=== PATIENT | female | born 1970 | race Caucasian/White ===

== ENCOUNTER 2022-06-06 10:44 | Outpatient (CLI) | payer MEDICAID, SELFPAY | END 2022-06-06 10:45 | disposition home or self-care (01) | LOC: NFLDREF 10:44 | PROVIDERS: PCP Family Medicine; Visit Provider Obstetrics & Gynecology | DX: R30.0 Dysuria (principal); R10.2 Pelvic and perineal pain; N89.8 Other specified noninflammatory disorders of vagina | CPT/HCPCS: 87086; 87491; 87591 ==

== ENCOUNTER 2022-07-03 08:16 | Outpatient (RCR) | payer MEDICAID, SELFPAY | END 2023-04-16 23:59 | disposition home or self-care (01) | PROVIDERS: PCP Family Medicine; Visit Provider Obstetrics & Gynecology | DX: M54.50 Low back pain, unspecified (principal); R10.9 Unspecified abdominal pain; Z51.89 Encounter for other specified aftercare | CPT/HCPCS: 97110; 97161 ==

== ENCOUNTER 2022-07-28 10:40 | Outpatient (CLI) | payer MEDICAID, SELFPAY ==
[2022-07-30 03:14] LABS: Follicle Stimulating Hormone 10.2 IU/L
== END 2022-07-28 10:41 | disposition home or self-care (01) ==
PROVIDERS: PCP Family Medicine; Visit Provider Obstetrics & Gynecology
DX: R10.2 Pelvic and perineal pain (principal); B37.31 Acute candidiasis of vulva and vagina; N93.9 Abnormal uterine and vaginal bleeding, unspecified
CPT/HCPCS: 83001; 87070

== ENCOUNTER 2023-09-25 10:40 | Outpatient (CLI) | payer MEDICARE, SELFPAY ==
--- NOTE | 2023-09-25 11:00 | CRLHL7_ITS ---
For Patients: As a result of the Cures Act, medical imaging exams and procedure reports are released immediately into your electronic medical record. You may view this report before your referring provider. If you have questions, please contact your health care provider. Indication: Palpable lump Technique: Grayscale and color Doppler ultrasound of the left side of the neck performed. Comparison: None Findings: Mildly prominent left cervical lymph nodes are present measuring 10 x 10 x 8 millimeters, 16 x 7 x 12 millimeters and 11 x 10 x 19 millimeters. Normal internal vascularity is present. No fluid collection or abscess. Impression: Mildly prominent left submandibular lymph nodes. Dictated by Steven Muñoz MD @ 09/25/2023 12:19:09 PM (Electronically Signed)
== END 2023-09-25 10:41 | disposition home or self-care (01) ==
LOC: US 10:41
PROVIDERS: PCP Family Medicine; Visit Provider Otolaryngology
DX: R22.1 Localized swelling, mass and lump, neck (principal)
CPT/HCPCS: 76536

== ENCOUNTER 2023-10-23 09:47 | Emergency (ER) | payer MEDICARE, SELFPAY ==
[2023-10-23 09:51] VITALS: BP 137/88; PULSE 87; RESP 20; TEMP 36.8; O2SAT 93; BMI 45.2
--- NOTE | 2023-10-23 10:00 | ED_ITS ---
HPI - Extremity Injury (Lower) General Time Seen by Provider: 10:00 Date Seen: 10/23/23 Chief Complaint: Extremity Pain/Injury, Lower Stated Complaint: fall Time Seen by Provider: 10/23/23 10:00 Source: patient and RN notes reviewed Mode of arrival: wheelchair Limitations: no limitations History of Present Illness HPI Narrative: Patient is a 53-year-old female presenting to the ED after an injury to her right ankle. She was getting out of the car, caught her ankle on the lip and injured it. She did fall out of the car, states nothing else is injured. Did not hit her head, no loss of consciousness. No neck or back pain. She has a little bit of dirt or staining of her sweatshirt along the right arm from falling. She states this does not hurt though. Her right ankle is hurting quite a bit, has not taken anything for pain. She denies any numbness or tingling in the toes or foot of this extremity. MD complaint: ankle injury Related Data Home Medications Medication Instructions Recorded Confirmed atorvastatin 10 mg tablet 10 mg PO QPM 06/06/22 09/08/23 betamethasone dipropionate 0.05 % 1 topical BID 06/06/22 09/08/23 lotion buspirone 15 mg tablet 15 mg PO BID 06/06/22 09/08/23 desvenlafaxine succinate 50 mg 100 mg PO DAILY 06/06/22 09/08/23 tablet,extended release 24 hr esomeprazole magnesium 20 mg 20 mg PO DAILY 06/06/22 09/08/23 capsule,delayed release famotidine 20 mg tablet (Pepcid) 20 mg PO BID 06/06/22 09/08/23 ketoconazole 1 % shampoo 1 topical 06/06/22 09/08/23 lorazepam 0.5 mg tablet 0.5 mg PO BID PRN 06/06/22 09/08/23 melatonin 5 mg capsule 5 mg PO DAILY PRN 06/06/22 09/08/23 modafinil 100 mg tablet 100 mg PO QAM 06/06/22 09/08/23 liraglutide 0.6 mg/0.1 mL (18 mg/3 1.8 mg subcut QDAY 08/05/22 09/08/23 mL) subcutaneous pen injector (Victoza 3-Jose E) propranolol 120 mg capsule,24 120 mg PO QDAY 10/24/22 09/08/23 hr,extended release lisinopril 5 mg tablet 5 mg PO DAILY 12/04/22 09/08/23 insulin glargine 100 unit/mL (3 16 unit subcut QPM 01/02/23 09/08/23 mL) subcutaneous pen (Lantus Solostar U-100 Insulin) nystatin 100,000 unit/gram topical 1 applic topical BID 01/02/23 09/08/23 cream Previous Rx's Medication Instructions Recorded clobetasol 0.05 % topical ointment 1 applic topical QHS #15 grams 08/12/22 fluconazole 150 mg tablet 150 mg PO Q3D 2 doses #2 tabs 01/02/23 (Diflucan) estradiol 10 mcg vaginal tablet 10 mcg vaginal QDAY #30 tabs 05/22/23 (Vagifem) oxycodone 5 mg tablet 5 mg PO Q6H PRN pain #10 tabs 10/23/23 Allergies Allergy/AdvReac Type Severity Reaction Status Date / Time No Known Allergies Allergy Unknown Verified 09/08/23 09:52 Review of Systems Narrative: As per HPI. 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) GERD (gastroesophageal reflux disease) ?K21.9 - Gastro-esophageal reflux disease without esophagitis (ICD-10) High blood cholesterol ?E78.00 - Pure hypercholesterolemia, unspecified (ICD-10) Type 2 diabetes mellitus ?E11.9 - Type 2 diabetes mellitus without complications (ICD-10) OCD (obsessive compulsive disorder) ?F42.9 - Obsessive-compulsive disorder, unspecified (ICD-10) Recurrent depression ?F33.9 - Major depressive disorder, recurrent, unspecified (ICD-10) Hypertension ?I10 - Essential (primary) hypertension (ICD-10) Generalized anxiety disorder ?F41.1 - Generalized anxiety disorder (ICD-10) Obstructive sleep apnea ?G47.33 - Obstructive sleep apnea (adult) (pediatric) (ICD-10) Vitamin D deficiency ?E55.9 - Vitamin D deficiency, unspecified (ICD-10) Hypothyroidism ?E03.9 - Hypothyroidism, unspecified (ICD-10) Surgical History Hx laparoscopic cholecystectomy ?Z90.49 - Acquired absence of other specified parts of digestive tract (ICD- 10) H/O lymph node excision ?Z98.890 - Other specified postprocedural states (ICD-10) H/O esophagogastroduodenoscopy ?Z98.890 - Other specified postprocedural states (ICD-10) History of delivery ?Z98.891 - History of uterine scar from previous surgery (ICD-10) Family History Other Anxiety disorder Coronary artery disease Stroke Social History Narrative: 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 She doesn't smoke, drink alcohol, [] Smoking Status: Never smoker Little interest or pleasure in doing things: more than half the days Feeling down, depressed, or hopeless: more than half the days Exam Const: Vital Signs, click to edit/add: Vital Signs - 24 hr 10/23/23 09:51 10/23/23 10:03 Temperature 98.2 F Pulse Rate [Pulse Oximeter] 87 Respiratory Rate 20 Blood Pressure [Ri ght Upper Arm] 137/88 Pulse Oximetry 93 91 Oxygen Delivery Me thod Room Air This 53-year-old female is alert, interactive, no apparent distress. Face atraumatic, speaking complete sentences, sclera clear, conjugate gaze. Lungs clear, no wheezing or crackles, able speak in complete sentences. CV regular rate and rhythm, no murmur, normal S1-S2, no S3-S4. Patient is obese. Her right lower extremity has ice pack over the ankle, this was removed, obvious swelling that is significant about the ankle, does seem to involve the ankle mortise. It in do feel a faint dorsalis pedis pulse, too much swelling to feel the posterior tibialis. Her foot and toes are warm and dry, she states she has normal sensation in them. Did not mobilize her about the ankle due to the significant ecchymosis and swelling. She is tender over medial and lateral malleoli. I do wonder just looking at this ankle about significant fracture with disruption of the mortise. Documenting provider has reviewed patient's vital signs: yes Course Course ED Course: Will establish an IV, have her on pulse oximetry but give her some initial pain management with morphine, prophylax with Zofran for nausea. She will obtain an x-ray of this right ankle, need to rule out underlying fracture which I highly suspect there is. Reevaluation(s) Time of Reevaluation #1: 11:07 Reevaluation #1: Reviewed ankle fracture with patient. Placed a short-leg posterior splint and a U-tong splint for medial/lateral stability. Ortho Glass was used for splinting. Patient tolerated this well. The morphine had really helped her pain management. Reviewed with her she needs to be weight-bearing, will attempt cru tches with her with the assistance of nursing staff. Consultations Consultation #1: Have reviewed with Dinorah WATTS from Orthopedics. Reviewed films, she does agree that she sees the tibial involvement on the posterior aspect of the films. We will splint as discussed. They will get her scheduled for follow-up in clinic next week, will advise her to get a preop scheduled. Time: 10:36 Vital Signs Vital signs: Initial Vital Signs Temperature 98.2 F 10/23/23 09:51 Temperature Source Temporal Artery Scan 10/23/23 09:51 Pulse Rate 87 10/23/23 09:51 Respiratory Rate 20 10/23/23 09:51 Blood Pressure 137/88 10/23/23 09:51 Blood Pressure Mean 104 10/23/23 09:51 Blood Pressure Position Supine 10/23/23 09:51 Pulse Oximetry 93 10/23/23 09:51 Oxygen Delivery Method Room Air 10/23/23 09:51 Vital Signs Temperature 98.2 F 10/23/23 09:51 Pulse Rate 87 10/23/23 09:51 Respiratory Rate 20 10/23/23 09:51 Blood Pressure 137/88 10/23/23 09:51 Pulse Oximetry 93 10/23/23 09:51 Oxygen Delivery Method Room Air 01/26/24 09:51 Temperature 98.2 F 10/23/23 09:51 Pulse Rate 87 10/23/23 09:51 Respiratory Rate 20 10/23/23 09:51 Blood Pressure 137/88 10/23/23 09:51 Pulse Oximetry 91 10/23/23 10:03 Oxygen Delivery Method Room Air 10/23/23 09:51 Medications Administered Medications: Discontinued Medications Generic Name Dose Route Start Last Admin Trade Name Freq PRN Reason Stop Dose Admin Morphine Sulfate 4 mg 10/23/23 10:03 10/23/23 10:15 Morphine 4 Mg/Ml Inj IVP 10/23/23 10:04 4 mg ONCE ONE Administration Ondansetron HCl 4 mg 10/23/23 10:03 10/23/23 10:15 Ondansetron 2 Mg/Ml Inj IVP 10/23/23 10:04 4 mg ONCE ONE Administration MDM - Extremity Injury (Lower) Differential Diagnosis Differential diagnosis: Likely ankle sprain and strain and ankle fracture Imaging Data XR right ankle: Attestation: I have reviewed the pertinent imaging results. My impression: Fibula fracture, do see posterior element of the tibia fractured on my preliminary review, await Radiology over-read. Radiologist's impression: Patient: SAMIA GUERRERO Facility:?[facility] Patient ID:?[id number] Site Patient ID:?[id number]. Site :?[id number] Study:?XRay Extremity Right ANKLE-10/23/2023 10:29:15 AM Ordering Physician:Nilton Morris Final Report: Indication: Trauma. Technique: Three views right ankle Comparison: None. Findings: Bones and joints: Mildly displaced transversely oriented fracture of the distal fibula. Tiny ossific density adjacent to the tip of the medial malleolus compatible with an avulsive injury with moderate widening of the medial clear space. Additional posterior malleolar fracture. Soft tissues: Soft tissue swelling, particularly anteriorly and laterally. Impression: Trimalleolar fractures with widening of the ankle mortise Dictated by Darci Arboleda MD @ 10/23/2023 10:41:12 AM (Electronic Signature) Discharge Plan Discharge Clinical Impression: Ankle fracture, right Qualifiers: Encounter type: initial encounter Fracture type: closed Qualified Code(s): S82.891A - Other fracture of right lower leg, initial encounter for closed fract ure Patient Disposition: Home, Self-Care Condition: Stable Instructions: Ankle Fracture (ED) Additional Instructions: Need to keep splint on and keep this clean and dry. Elevate and ice her leg as much as you are able to until you follow-up with Orthopedics, this will help decrease the swelling. Tylenol 1000 mg 3 times a day baseline for pain. Can supplement with ibuprofen for pain control per bottle directions as needed. Have written for a few tablets of oxycodone for more severe pain, this can be constipating. If you are using the oxycodone, start MiraLax 17 g daily and use senna per package directions as needed for daily non constipated stool. Need to contact your clinic to get scheduled for a preop. The orthopedic clinic will contact you to get you scheduled for follow-up. If you have not heard from them by Thursday, can call [phone] to get scheduled. You need to be nonweightbearing on this leg, use crutches to achieve this goal. Activity Level: No Weight Bearing Prescriptions: New oxycodone 5 mg tablet 5 mg PO Q6H PRN (Reason: pain) Qty: 10 0RF No Action desvenlafaxine succinate 50 mg tablet extended release 24 hr 100 mg PO DAILY melatonin 5 mg capsule 5 mg PO DAILY PRN esomeprazole magnesium 20 mg capsule,delayed release(DR/EC) 20 mg PO DAILY ketoconazole 1 % shampoo 1 topical lorazepam 0.5 mg tablet 0.5 mg PO BID PRN buspirone 15 mg tablet 15 mg PO BID betamethasone dipropionate 0.05 % lotion 1 topical BID famotidine [Pepcid] 20 mg tablet 20 mg PO BID atorvastatin 10 mg tablet 10 mg PO QPM modafinil 100 mg tablet 100 mg PO QAM Victoza 3-Jose E 0.6 mg/0.1 mL (18 mg/3 mL) pen injector 1.8 mg subcut QDAY clobetasol 0.05 % ointment 1 applic topical QHS Qty: 15 3RF Rx Instructions: Use nightly as needed for 4 weeks, then twice weekly. propranolol 120 mg capsule,extended release 24 hr 120 mg PO QDAY lisinopril 5 mg tablet 5 mg PO DAILY insulin glargine [Lantus Solostar U-100 Insulin] 100 unit/mL (3 mL) insulin pen 16 unit subcut QPM nystatin 100,000 unit/gram cream 1 applic topical BID fluconazole [Diflucan] 150 mg tablet 150 mg PO Q3D Qty: 2 0RF estradiol [Vagifem] 10 mcg tablet 10 mcg vaginal QDAY Qty: 30 3RF Rx Instructions: Insert 1 tablet vaginally for the first 2 weeks followed by twice weekly Follow Up/Referrals: Milagro Noriega DO [Primary Care Provider] - Stand Alone Forms: [facility] Info Instructions
[2023-10-23 10:03] VITALS: O2SAT 91
--- NOTE | 2023-10-23 10:03 | CRLHL7_ITS ---
For Patients: As a result of the Century Cures Act, medical imaging exams and procedure reports are released immediately into your electronic medical record. You may view this report before your referring provider. If you have questions, please contact your health care provider. Indication: Trauma. Technique: Three views right ankle Comparison: None. Findings: Bones and joints: Mildly displaced transversely oriented fracture of the distal fibula. Tiny ossific density adjacent to the tip of the medial malleolus compatible with an avulsive injury with moderate widening of the medial clear space. Additional posterior malleolar fracture. Soft tissues: Soft tissue swelling, particularly anteriorly and laterally. Impression: Trimalleolar fractures with widening of the ankle mortise Dictated by Darci Arboleda MD @ 10/23/2023 10:41:12 AM (Electronically Signed)
[2023-10-23] MEDS: ONDANSETRON 2 MG/ML inj 4 MG IVP (10:15)
[2023-10-23] MEDS: MORPHINE 4 MG/ML INJ IVP (10:15)
--- OUTSIDE RECORDS SUMMARY | 2023-10-23 10:49 | XMS_ITS | Clinical Summary ---
Author Name Unknown Organization [facility] Address [place], [place] [address] Care Team Providers Care Assistant Restaurant General Manager Name Role Phone HariMilagro Primary Care Provider [phone] Silvia Guadalupe MD Unavail able Allergies Active Allergy Reactions Criticality Noted Date Comments Lisinopril Throat Swelling/Closing High 02/24/2023 ?cause mild throat swelling Metformin Diarrhea 01/28/2022 Medications Medication Sig Dispensed Refills Start Date End Date Status melatonin 5 mg tab Take 1 tablet by mouth at bedtime. 0 09/13/20 19 Active blood-glucose meterIndications: Type II diabetes mellitus with complication (HC) Check three times daily. 1 Device 0 01/02/20 21 Active fluticasone (50 mcg per actuation) nasal solution (FLONASE)Indicati ons:Dysfunction of left eustachian tube Inhale 2 Sprays to both nostrils once daily. 16 g 3 10/21/19 22 Active nystatin (MYCOSTATIN) creamIndications: Yeast vaginitis Apply topically to affected area(s) 2 times daily. Until resolved. 90 g 0 04/28/20 22 Active Insulin Isabella, Disposable, (BD Adrienne 2nd Gen Pen Needle) 32 gauge x 5/32Indications: Uncontrolled type 2 diabetes mellitus with hyperglycemia (HC) As directed. Remove the 2 covers on the insulin pen needle before administering insulin and victoza dose. 200 Each 3 12/10/19 23 Active lancetsIndication s:Type II diabetes mellitus with complication (HC) Check three times daily 200 Each 3 12/19/19 23 Active Clobetasol Propionate 0.05 % shampooIndication s:Psoriasis of scalp APPLY A THIN LAYER ONTO DRY, TO THE AFFECTED AREA(S) SCALP DAILY. LEAVE ON FOR 15 MINUTES BEFORE LATHERING AND RINSING 118 mL 1 01/15/20 23 Active betamethasone dipropionate 0.05% (DIPROSONE 0.05% CREAM) 0.05 % creamIndications: Psoriasis (a type of skin inflammation) Use 1-2 times daily on psoriasis until improved, then use as needed 60 g 1 02/10/20 23 Active albuterol HFA (PRO-AIR; VENTOLIN; PROVENTIL) 90 mcg/actuation inhalerIndication s:Wheezing INHALE 1 TO 2 PUFFS BY MOUTH EVERY 4 HOURS NEEDED FOR SHORTNESS OF BREATH OR WHEEZING 6.7 g 0 03/26/20 23 Active famotidine (PEPCID) 20 mg tabletIndications :Gastroesophageal reflux disease, unspecified whether esophagitis present TAKE 1 TABLET(20 MG) BY MOUTH TWICE DAILY 180 Tablet 2 05/03/20 23 Active cetirizine (ZYRTEC) 10 mg tabletIndications :Cough, unspecified type Take 1 Tablet (10 mg) by mouth once daily. 90 Tablet 3 06/03/20 23 Active propranolol ER (INDERAL LA) 120 mg Cs24 Sustained-Release capsuleIndication s:HTN (hypertension) TAKE 1 CAPSULE(120 MG) BY MOUTH EVERY DAY 60 Capsule 0 08/01/20 23 Active esomeprazole (NEXIUM) 40 mg capsuleIndication s:Gastroesophagea l reflux disease, unspecified whether esophagitis present TAKE 1 CAPSULE(40 MG) BY MOUTH EVERY DAY BEFORE A MEAL 90 Capsule 2 08/01/20 23 Active atorvastatin (LIPITOR) 10 mg tabletIndications :Type II diabetes mellitus with complication (HC) TAKE 1 TABLET(10 MG) BY MOUTH AT BEDTIME 60 Tablet 0 08/01/20 23 Active Lantus Solostar U-100 Insulin 100 unit/mL (3 mL) penIndications:Un controlled type 2 diabetes mellitus with hyperglycemia (HC) Inject 50 units subcutaneous before bedtime. 45 mL 3 09/07/20 23 Active blood sugar diagnostic (Jajah Verio test strips) stripIndications: Type II diabetes mellitus with complication (HC) USE TO TEST THREE TIMES DAILY 300 Each 3 09/14/20 23 Active sertraline (ZOLOFT) 100 mg tabletIndications :Moderate recurrent major depression (HC),Obsessive-co mpulsive disorder, unspecified type,Generalized anxiety disorder Take 1 Tablet (100 mg) by mouth at bedtime. 90 Tablet 0 09/29/19 24 Active sertraline (Zoloft) 50 mg tabletIndications :Moderate recurrent major depression (HC) Take 1 Tablet (50 mg) by mouth every morning. 90 Tablet 0 09/29/19 24 Active modafiniL (PROVIGIL) 200 mg tabletIndications :Moderate recurrent major depression (HC),Hypersomnia Take 1 Tablet (200 mg) by mouth every morning. 90 Tablet 0 09/29/19 24 Active busPIRone (BUSPAR) 30 mg tabletIndications :Moderate recurrent major depression (HC),Obsessive-co mpulsive disorder, unspecified type,Generalized anxiety disorder Take 1 Tablet (30 mg) by mouth once daily. (In the morning) 90 Tablet 0 09/29/19 24 Active busPIRone (BUSPAR) 15 mg tabletIndications :Moderate recurrent major depression (HC),Obsessive-co mpulsive disorder, unspecified type,Generalized anxiety disorder Take 1 Tablet (15 mg) by mouth once daily. (At bedtime) 90 Tablet 0 09/29/19 24 Active LORazepam (ATIVAN) 0.5 mg tabIndications:Mo derate recurrent major depression (HC),Generalized anxiety disorder,Panic attacks Take 1 Tablet (0.5 mg) by mouth once daily if needed (breakthrough anxiety). 30 Tablet 2 09/29/19 24 Active liraglutide (Victoza 2-Jose E) 0.6 mg/0.1 mL (18 mg/3 mL) subcutaneous penIndications:Un controlled type 2 diabetes mellitus with hyperglycemia (HC) ADMINISTER 1.8 MG UNDER THE SKIN EVERY DAY 9 mL 0 10/10/19 24 Active liraglutide (Victoza 2-Jose E) 0.6 mg/0.1 mL (18 mg/3 mL) subcutaneous penIndications:Un controlled type 2 diabetes mellitus with hyperglycemia (HC) Inject 0.3 mL (1.8 mg) subcutaneous once daily. 12 mL 3 04/02/20 23 024 Discontinued modafiniL (PROVIGIL) 200 mg tabletIndications :Hypersomnia Take 1 Tablet (200 mg) by mouth every morning. 90 Tablet 0 07/13/20 23 024 Discontinued(Re order (E-cancel not sent)) LORazepam (ATIVAN) 0.5 mg tabIndications:Mo derate recurrent major depression (HC),Generalized anxiety disorder,Panic attacks Take 1 Tablet (0.5 mg) by mouth once daily if needed (breakthrough anxiety). 30 Tablet 2 07/13/20 23 024 Discontinued(Re order (E-cancel not sent)) desvenlafaxine succinate (PRISTIQ) 25 mg extended release tabletIndications :Moderate recurrent major depression (HC),Generalized anxiety disorder Take 1 Tablet (25 mg) by mouth once daily. 90 Tablet 0 07/13/20 23 024 Discontinued(*M ed complete/Regime n complete/Level of care change) busPIRone (BUSPAR) 15 mg tabletIndications :Moderate recurrent major depression (HC),Generalized anxiety disorder,Obsessiv e-compulsive disorder, unspecified type Take 1 Tablet (15 mg) by mouth two times daily. 180 Tablet 0 07/13/20 23 024 Discontinued(Re order (E-cancel not sent)) sertraline (ZOLOFT) 100 mg tabletIndications :Moderate recurrent major depression (HC),Obsessive-co mpulsive disorder, unspecified type,Generalized anxiety disorder Take 1 Tablet (100 mg) by mouth at bedtime. 90 Tablet 0 08/10/20 23 024 Discontinued(Re order (E-cancel not sent)) continuous glucose monitor SENSOR KIT (FREESYLE NEEL)Indications :Type 2 diabetes mellitus with microalbuminuria, with long-term current use of insulin (HC) To be used to read blood sugars per signal and communications maintainer's directions. 1 Each 0 09/07/20 23 024 Discontinued(*P atient states no longer taking) Active Problems Problem Noted Date Diagnosed Date Headache, chronic daily 04/16/2023 Obsessive-compulsive disorder 04/16/2023 Type 2 diabetes mellitus wit h microalbuminuria, with long-term current use of insulin 02/25/2023 Hypersomnia 05/13/2021 Moderate recurrent major depression 02/26/2021 Social anxiety disorder 02/26/2021 Panic attacks 02/26/2021 HTN (hypertension) 09/13/2019 Controlled substance agreement signed 11/23/2017 Overview: Signed: 02/01/15-Dinorah Baxter APRN, BC, [employer] / Pap smear for cervical cancer screening 02/27/20 Overview: 02/2017 NIL/HPV+, HPV 16/18 Negative 06/2018 NIL/HPV Negative 09/2021 NIL/HPV Negative PLAN: Pap/HPV due 09/2026 Generalized anxiety disorder 01/25/2013 Encounter for long-term (current) use of other m edications 06/07/2012 TASHA 05/09/2012 AHI-11 05/15/2012 Overview: Has cpap but does not use Encounter for long-term (current) use of other m edications 03/08/2012 Vitamin D deficiency 10/24/2010 Unspecified hearing loss 10/24/2010 Unspecified hypothyroidism 06/05/2009 Morbid obesity 01/20/2008 Headache(784.0) 12/07/2006 Overview: Follows with Dr. Estrada Resolved Problems Problem Noted Date Diagnosed Date Resolved Date Obsessive-compulsive disorder 08/05/2021 08/05/2021 Obsessive-compulsive disorder 08/05/2021 04/16/2023 Obsessive-compulsive disorder 05/13/2021 08/05/2021 Obsessive-compulsive disorder 02/26/2021 05/13/2021 Depression, major, recurrent, moderate 06/17/2018 02/26/2021 Cervical high risk HPV (shalom n papillomavirus) test positive 02/26/2017 08/04/2018 Overview: 02/2017 NIL/HPV+, HPV 16/18 negative. 06/2018 NIL/HPV negative Partner relational problem 09/03/2015 0 04/16/2023 Recurrent major depression i n complete remission 03/22/2015 06/17/2018 Overview: Under the care of Marybeth Baxter APRN-AARON, [employer] for mental health care. [facility] Has seen Austin Baxter MD and Lashon Patel MD in the past for psychiatry. Previous Medication Trials: Paxil since 2006- recently changed to fluoxetine in 2014 due to sexual side effects from the paxil. 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 02/26/2021 MAJOR DEPRESSION RECURRENT 01/18/2007 0 03/22/2015 Encounters Date Type Department Care Team Description 10/20/2023 9:10 AM EMERGENCY DEPARTMENT CLINICIAN Office Visit [facility] [address] [place] [address] Milagro Noriega DO Diabetes 10/20/2023 Orders Only [facility] Scanner 1 scan: (1-Ord) INCOMING RECORDS-, [facility], 10/20/2023 10/20/2023 Travel 10/09/2023 Refill [facility] [address] [facility] [address] [place] [phone] Silvia Guadalupe MD Refill Request (Buspirone-denied, orders on file) 10/08/2023 Refill [facility] [address] [place] [address] Milagro Noriega DO Refill Request (Victoza 2-jose e) 09/29/2023 1:45 PM EMERGENCY DEPARTMENT CLINICIAN Telemedicine [facility] [address] [place] [address] Silvia Guadalupe MD Telehealth ([place]); Medication Management 09/29/2023 Travel 09/25/2023 Orders Only [facility] Scanner 1 scan: (1-Ord) [facility], SOFT TISSUE HEAD NECK, 09/25/2023 09/23/2023 9:00 AM EMERGENCY DEPARTMENT CLINICIAN Ancillary Procedure [facility] [address] [place] [address] 09/23/2023 Travel 09/22/2023 Travel 09/14/2023 Refill [facility] [address] [place] [address] Milagro Noriega DO Refill Request (Onetouch Verio Test Strips) 09/07/2023 8:45 AM EMERGENCY DEPARTMENT CLINICIAN Office Visit [facility] [address] [place] [address] Milagro Noriega DO Diabetes; Immunization/Injec tion 09/07/2023 Travel 08/10/2023 1:00 PM EMERGENCY DEPARTMENT CLINICIAN Telemedicine [facility] [address] [place] [address] Silvia Guadalupe MD Telehealth ([place]) 08/10/2023 Travel 08/01/2023 Refill [facility] [address] [place] [address] Milagro Noriega DO Refill Request (Propranolol Er, Esomeprazole, Atorvastatin) from Last 3 Months Immunizations Name Administration Dates Next Due AMB Influenza, IIV3 (Age >=3 years)(Flu Clinic Only) 08/15/2008 COVID-19 Vaccine Spikevax (M oderna 50mcg/0.5mL) 12YO+ [id number] Formula PF 09/07/2023 COVID-19 vaccine (Pfizer-Bio NTech 30mcg/0.3mL) 12YO+ BIVALENT PF, MDV 08/04/2022 COVID-19 vaccine (Pfizer-Bio NTech 30mcg/0.3mL) 12YO+ CHANG-SUCROSE PF, MDV 04/28/2022 COVID-19 vaccine (Pfizer-Bio NTech 30mcg/0.3mL) PF MDV 10/21/2021,01/31/2021,01/08/2021 Hepatitis B (Adult) 11/10/2022,04/28/2022,1992 Hepatitis B (Peds) 01/30/1994 Influenza, IIV3 (Age >=3 years) 09/27/20 13,06/07/2012,07/08/2011,2009,09/07/2009,08/15/2008,07/12/2007,1 Influenza, IIV4 06/15/2023, 2,07/01/2021,2019,06/30/2019,07/08/2018,09/22/2017,1 10/05/2015,08/08/2015,07/12/2014 MMR 02/06/1989 Pneumococcal Conj 20-valent (Prevnar 20) 08/04/2022 Pneumococcal Poly,23-Valent (Pneumovax) 07/01/2021 Td (Age >=7 Years) 02/21/2021,09/28/1998 Tdap 10/23/2010 Family History Medical History Relation Name Comments Arthritis Father 1990 Heart Disease Father Heart attack Father Anxiety disorder Mother Other Other GRANDPARENTS HX POSITIVE FOR STROKE,CANCER,DEPRESSION No Known Problems Sister 1 No Known Problems Sister 2 No Known Problems Sister 3 Cancer-breast No Family History Cancer-ovarian No Family History Relation Name Status Comments Father (Age 57) started wi th heart Mother Alive Other Sister 1 Alive Sister 2 Alive Sister 3 Alive Social History Tobacco Use Types Packs/Day Years Used Date Smoking Tobacco: Never Passive Smoke Exposure: Past Smokeless Tobacco: Never Tobacco Cessation:Counseling Given: Not Answered Alcohol Use Standard Drinks/Week Comments Not Currently 0 (1 standard drink = 0.6 oz pur e alcohol) PHQ-2 Answer Date Recorded PHQ-2 TOTAL SCORE 6 09/29/2023 Social Connections Answer Date Recorded Frequency of Communication with Friends and Fami ly 0 06/03/2023 Alcohol Use Answer Date Recorded How often do you have a drink containing alcohol ? 2 10/21/2021 How many drinks containing a lcohol do you have on a typical day when you are drinking? 0 10/21/2021 How often do you have five or more drinks on one occasion? 0 10/21/2021 Financial Resource Strain Answer Date R ecorded Difficulty of Paying Living Expenses 3 06/03/2023 Difficulty of Paying Living Expenses Not on file 06/03/2023 Food Insecurity Answer Date Recorded Worried About Running Out of Food in the Last Ye ar 1 06/03/2023 Transportation Needs Answer Date Record ed Lack of Transportation (Medical) 1 06/03/2023 Housing Stability Answer Date Recorded Unable to Pay for Housing in the Last Year 1 06/03/2023 Sex and Gender Information Value Date Recorded Sex Assigned at Female 08/08/2020 12:48 PM EMERGENCY DEPARTMENT CLINICIAN Gender Identity Female 08/08/2020 12:48 PM EMERGENCY DEPARTMENT CLINICIAN Sexual Orientation Straight 08/08/2020 12 :48 PM EMERGENCY DEPARTMENT CLINICIAN Obstetrics History Para Term AB IAB SAB Ectopic Multiple Livin g Live Births 2 1 1 0 1 1 0 0 0 1 1 Date Outcome GA Total Labor Labor/2nd/3rd Weight Sex Delivery Anes PTL Maya A1 A5 Name Cl in IAB 07/07 Term Lynne ng Last Filed Vital Signs Vital Sign Reading Time Taken Comments Blood Pressure 113/77 10/20/2023 9:29 AM EMERGENCY DEPARTMENT CLINICIAN Pulse 82 10/20/2023 9:29 AM EMERGENCY DEPARTMENT CLINICIAN Temperature 36.9 ??C (98.4 ??F) 11/27/2021 11:[address] Respiratory Rate 18 10/22/2020 10:32 AM EMERGENCY DEPARTMENT CLINICIAN Oxygen Saturation 95% 10/20/2023 9:29 AM EMERGENCY DEPARTMENT CLINICIAN Inhaled Oxygen Concentration - - Weight 127 kg (280 lb) 10/20/2023 9:29 AM EMERGENCY DEPARTMENT CLINICIAN Height 168 cm (5' 6.14) 04/20/2023 10:04 AM CDT Body Mass Index 45 04/20/2023 10:04 AM CDT Plan of Treatment Upcoming Encounters Date Type Department Care Team (Late st Contact Info) Description 11/03/2023 9:45 AM EMERGENCY DEPARTMENT CLINICIAN Ancillary Procedure [facility] [address] [facility] [address] 12/08/2023 9:00 AM CDT Office Visit [facility] [address] [place] [phone] Pilo Garrison MD [address] [place] [address] Dr Lopez [address] [place] [address] 12/09/2023 9:10 AM CDT Office Visit [facility] [address] [place] [address] Milagro Noriega DO [address] [facility] [address] 12/21/2023 2:15 PM CDT Telemedicine [facility] [address] [place] [phone] Silvia Guadalupe MD [address] [place] [address] Health Maintenance Due Date Last Done Comments Zoster (shingles) series for age 50+ (1 of 2) 2022 Mammogram for age 45-75 10/28/2023 10/28/19 23, 04/03/2021, 11/05/2017, Additional history exists BMI (ht and wt on same day) for age 18+ 04/20/2024 04/20/2023, 04/16/2023, 11/10/2022, Additional history exists Depression screening for age 12+ 09/29/2024 09/29/2023, 08/10/2023, 07/15/2023, Additional history exists Pap test for age 21-65 10/21/2026 , 10/21/2021, 07/21/2018, Additional history exists Lipids for age 45-75 11/10/2027 11/10/2022, 10/21/2021, 02/19/2021, Additional history exists Tetanus booster 02/21/2031 02/21/2021, 09/29, 09/28/1998 Colonoscopy through age 75 12/26/203112/25, 12/25/2021, 12/25/2021 Tdap Completed 10/23/2010 HIV for age 15-65 Completed 03/23/2017, 07/13/2007 Hepatitis C screening for ag e 18-79 Completed 03/23/2017 Pneumococcal series for age 6-64 Completed 08/04/20, 07/01/2021 Hepatitis B series for Diabetes Completed 11/10/2022, 04/28/2022, 01/30/1994, Additional history exists Influenza for age 50-64 Completed 06/15/20, 08/04/2022, 07/01/2021, Additional history exists COVID-19 vaccine series Completed 09/07/20, 08/04/2022, 04/28/2022, Additional history exists Medical Devices Implanted Type Area Senior Project Architect Device Identifier Shelf Expiration Date Model / Serial / Lot [id number] - [id number] Implanted:Qty: 2 on 03/20/2016 by Jamal Walden MD at [facility] Bilateral: Ear Med[employer]onic 07/04/2017 [id number] / / [id number] Description:Sam T-tube ear tubes Procedures Procedure Name Priority Date/Time Associated Diagnosis Comments SCAN CORRESP-IMAGING 10/20/2023 12:00 AM EMERGENCY DEPARTMENT CLINICIAN SCAN-ULTRASOUND REPORT 09/25/2023 12:00 AM EMERGENCY DEPARTMENT CLINICIAN US LOWER EXTREMITY SOFT TISSUE LEFT Routine 09/23/2023 9:37 AM EMERGENCY DEPARTMENT CLINICIAN Leg mass, left HEMOGLOBIN A1C Routine 09/07/2023 8:53 AM EMERGENCY DEPARTMENT CLINICIAN Type 2 diabetes mellitus with microalbuminuria, with long-term current use of insulin (HC) from Last 3 Months Results * SCAN CORRESP-IMAGING (10/20/2023 12:00 AM EMERGENCY DEPARTMENT CLINICIAN) Anatomical Region Laterality Modality Other Scanner OTHER * SCAN-ULTRASOUND REPORT (09/25/2023 12:00 AM EMERGENCY DEPARTMENT CLINICIAN) Anatomical Region Laterality Modality Other Scanner OTHER * US LOWER EXTREMITY SOFT TISSUE LEFT (09/23/2023 9:37 AM EMERGENCY DEPARTMENT CLINICIAN) Anatomical Region Laterality Modality ARM R Ultrasound 09/23/2023 2:39 PM EMERGENCY DEPARTMENT CLINICIAN Narrative 09/23/2023 2:39 PM EMERGENCY DEPARTMENT CLINICIAN For Patients: ??As a result of the Cures Act, medical imaging exams and procedure reports are released immediately into your electronic medical record. ??You may view this report before your referring provider. ??If you have questions, please contact your health care provider. Indication: Lump Technique: Grayscale ultrasound of the left lower extremity in the area of concern. Comparison: None Findings: Normal subcutaneous tissues. No solid mass or fluid collection. Impression: Negative targeted ultrasound. Dictated by Steven Muñoz MD @ Sep 23 2023 ??2:39PM (Electronically Signed) ?? Procedure Note Steven Muñoz MD - 09/23/2023 For Patients: As a result of the Cures Act, medical imagingexams and procedure reports are released immediately into your electronicmedical record. You may view this report before your referring provider.If you have questions, please contact your health care provider. Indication: Lump Technique: Grayscale ultrasound of the left lower extremity in the area of concern. Comparison: None Findings: Normal subcutaneous tissues. No solid mass or fluid collection. Impression: Negative targeted ultrasound. Dictated by Steven Muñoz MD @ Sep 23 2023 2:39PM (Electronically Signed) Milagro Ann Hari DO US * (ABNORMAL) HEMOGLOBIN A1C MONITORING (POCT) (09/07/2023 8:53 AM EMERGENCY DEPARTMENT CLINICIAN) HEMOGLOBIN A1C MONITORING (POCT) 7.7(H) <=6.4 % 09/07/2023 9:07 AM EMERGENCY DEPARTMENT CLINICIAN [facility] Blood BLOOD SPECIMEN / Unknown Venipuncture / Unknown 09/07/2023 8:53 AM EMERGENCY DEPARTMENT CLINICIAN 09/07/2023 8:53 AM EMERGENCY DEPARTMENT CLINICIAN Narrative [facility] - 09/07/2023 9:07 AM EMERGENCY DEPARTMENT CLINICIAN ? (<=6.9%) ? Indicates good control ? (7.0% to 7.9%) ? Indicates fair control ? (>=8.0%) ? Indicates poor control ?? NOTE: ??These thresholds are guidelines and ?individual targets may vary. Falsely low levels may be seen with: Recent Transfusion, Recent Significant Blood Loss, Hemolytic Diseases, or Falsely elevated levels may be seen with: Untreated Anemias, Splenectomy ? Milagro Noriega DO CHEMISTRY [facility] [address] [place] [address], from Last 3 Months Advance Directives Latest Code Status on File Code Status Date Activated Date Inactivated Comments Full Code 03/20/2016 7:36 AM 03/20/2016 5:18 PM Question Answer Comments Code Status Discussion: Not Discussed Care Teams Assistant Restaurant General Manager Relationship Specialty Start Date End Date Milagro Noriega DO [address] [place] [address] PCP - General Family Practice 01/21/16 Silvia Guadalupe MD [address] [place] [address] Psychiatry Psychiatry 02/26/21
== END 2023-10-23 11:20 | disposition home or self-care (01) ==
PROVIDERS: Emergency Provider Family Medicine; PCP Family Medicine
DX: S82.891A Other fracture of right lower leg, initial encounter for closed fracture (principal); V48.4XXA Person boarding or alighting a car injured in noncollision transport accident, initial encounter
CPT/HCPCS: 73610; 94761; 96374; 96375; 99283; 99284; J2270; J2405

== ENCOUNTER 2023-10-29 06:54 | Day surgery (SDC) | payer MEDICARE, SELFPAY ==
[2023-10-29] VITALS (16 sets, daily range): BP systolic 100–160; BP diastolic 58–94; PULSE 58–76; RESP 14–16; TEMP 35.8–36.7; O2SAT 93–97; BMI 45.1
--- OUTSIDE RECORDS SUMMARY | 2023-10-29 06:56 | XMS_ITS | Clinical Summary ---
Author Name Unknown Organization [facility] Address [place], [place] [address] Care Team Providers Care File Keeper Name Role Phone HariMilagro Primary Care Provider [phone] Silvia Guadalupe MD Unavail able Allergies Active [...] 90 g 0 04/28/20 22 Active Insulin Atwood, Disposable, (BD Adrienne 2nd Gen Pen Needle) [...] BEDTIME 60 Tablet 0 08/01/20 23 Active blood sugar diagnostic (Nora TherapeuticsTouch Verio test strips) stripIndications: Type II diabetes [...] DAY 9 mL 0 10/10/19 24 Active Lantus Solostar U-100 Insulin 100 unit/mL (3 mL) penIndications:Un controlled type 2 diabetes mellitus with hyperglycemia (HC) Inject 54 units subcutaneous before bedtime. 0 10/27/19 24 Active liraglutide (Victoza 2-Jose E) 0.6 mg/0.1 mL (18 mg/3 mL) subcutaneous penIndications:Un controlled type 2 diabetes mellitus with hyperglycemia (HC) Inject 0.3 mL (1.8 mg) subcutaneous once daily. 12 mL 3 04/02/20 23 024 Discontinued continuous glucose monitor SENSOR KIT (FREESYLE NEEL)Indications :Type 2 diabetes mellitus with microalbuminuria, with long-term current use of insulin (HC) To be used to read blood sugars per nut processing supervisor's directions. 1 Each 0 09/07/20 23 024 Discontinued(*P atient states no longer taking) Lantus Solostar U-100 Insulin 100 unit/mL (3 mL) penIndications:Un controlled type 2 diabetes mellitus with hyperglycemia (HC) Inject 50 units subcutaneous before bedtime. 45 mL 3 09/07/20 23 024 Discontinued(Re order (E-cancel not sent)) Active Problems Problem Noted Date Diagnosed Date Headache, chronic daily 04/16/2023 Obsessive-compulsive disorder 04/16/2023 Type 2 diabetes mellitus wit h microalbuminuria, with long-term current use of insulin 02/25/2023 Hypersomnia 05/13/2021 Moderate recurrent major depression 02/26/2021 Social anxiety disorder 02/26/2021 Panic attacks 02/26/2021 HTN (hypertension) 09/13/2019 Controlled substance agreement signed 11/23/2017 Overview: Signed: 02/01/15-Dinorah Baxter, PROTECTION ANALYST, BC, PREPARATION SUPERVISOR [employer] /mf Pap smear for cervical cancer screening 02/27/20 17 Overview: 02/2017 NIL/HPV+, HPV 16/18 Negative 06/2018 [...] Overview: Under the care of Marybeth Baxter APRN-, PREPARATION SUPERVISOR [employer] for mental health care. [facility] Has seen Austin Baxter MD and Lashon Patel MD in the past for psychiatry. Previous Medication Trials: Paxil since 2006- recently changed to fluoxetine in 2014 due to sexual side effects from the paxil. 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 02/26/2021 MAJOR DEPRESSION RECURRENT 01/18/2007 0 03/22/2015 Encounters Date Type Department Care Team Description 10/27/2023 9:30 AM RN OCCUPATIONAL Preop Visit [facility] [address] [place] [address] Marisabel Arthur MD Pre-Op Exam (10/29/2023/[facility]/Dr Araujo ) 10/26/2023 Travel 10/23/2023 Orders Only [facility] Scanner 1 scan: (1-Ord) [facility], XR ANKLE RT MIN 3V, 10/23/2023 10/20/2023 9:10 AM RN OCCUPATIONAL Office Visit [facility] [address] [place] [address] Milagro Noriega DO Diabetes 10/20/2023 Orders Only [facility] Scanner 1 scan: (1-Ord) INCOMING RECORDS-US, [facility], 10/20/2023 10/20/2023 Travel 10/09/2023 Refill [facility] [address] [facility] [address] [place] [phone] Silvia Guadalupe MD Refill Request (Buspirone-denied, orders on file) 10/08/2023 Refill [facility] [address] [place] [address] Milagro Noriega DO Refill Request (Victoza 2-jose e) 09/29/2023 1:45 PM RN OCCUPATIONAL Telemedicine [facility] [address] [facility] [address] [place] [phone] Silvia Guadalupe MD Telehealth ([place]); Medication Management 09/29/2023 Travel 09/25/2023 Orders Only [facility] Scanner 1 scan: (1-Ord) [facility] SOFT TISSUE HEAD NECK, 09/25/2023 09/23/2023 9:00 AM RN OCCUPATIONAL Ancillary Procedure [facility] [address] [place] [address] 09/23/2023 Travel 09/22/2023 Travel 09/14/2023 Refill [facility] [address] [place] [address] Milagro Noriega DO Refill Request (Onetouch Verio Test Strips) 09/07/2023 8:45 AM RN OCCUPATIONAL Office Visit [facility] [address] [place] [address] Milagro Noriega DO Diabetes; Immunization/Injec tion 09/07/2023 Travel 08/10/2023 1:00 PM RN OCCUPATIONAL Telemedicine [facility] [address] [place] [phone] Silvia Guadalupe MD Telehealth ([place]) 08/10/2023 Travel 08/01/2023 Refill [facility] [address] [place] [address] Milagro Noriega DO Refill Request (Propranolol Er, Esomeprazole, Atorvastatin) from Last 3 Months Immunizations Name Administration Dates Next Due AMB Influenza, IIV3 (Age >=3 years)(Flu Clinic Only) 08/15/2008 COVID-19 Vaccine Spikevax (M oderna 50mcg/0.5mL) 12YO+ [id number] Formula PF 09/07/2023 COVID-19 vaccine (Pfizer-Bio NTech 30mcg/0.3mL) 12YO+ BIVALENT PF, MDV 08/04/2022 COVID-19 vaccine (Pfizer-Bio NTech 30mcg/0.3mL) 12YO+ CHANG-SUCROSE PF, MDV 04/28/2022 COVID-19 vaccine (Pfizer-Bio NTech 30mcg/0.3mL) PF, MDV 04/28/2022,10/21/2021,01/31/2021,2020 Hepatitis B (Adult) 11/10/2022,04/28/2022,1992 Hepatitis B (Peds) [...] Sex Assigned at Female 08/08/2020 12:48 PM RN OCCUPATIONAL Gender Identity Female 08/08/2020 12:48 PM RN OCCUPATIONAL Sexual Orientation Straight 08/08/2020 12 :48 PM RN OCCUPATIONAL Obstetrics History Para Term AB IAB SAB Ectopic Multiple Livin g Live Births 2 1 1 0 1 1 0 0 0 1 1 Date Outcome GA Total Labor Labor/2nd/3rd Weight Sex Delivery Anes PTL Maya A1 A5 Name Cl in IAB 07/07 Term Lynne ng Last Filed Vital Signs Vital Sign Reading Time Taken Comments Blood Pressure 134/71 10/27/2023 9:42 AM RN OCCUPATIONAL Pulse 82 10/27/2023 9:42 AM RN OCCUPATIONAL Temperature 36.9 ??C (98.4 ??F) 11/27/2021 11:[address] Respiratory Rate 18 10/27/2023 9:42 AM RN OCCUPATIONAL Oxygen Saturation 95% 10/27/2023 9:42 AM RN OCCUPATIONAL Inhaled Oxygen Concentration - - Weight 127 kg (280 lb) 10/27/2023 9:42 AM RN OCCUPATIONAL Height 167.6 cm (5' 6) 10/27/2023 9:42 AM RN OCCUPATIONAL Body Mass Index 45.19 10/27/2023 9:42 AM RN OCCUPATIONAL Plan of Treatment Upcoming Encounters Date Type Department Care Team (Late st Contact Info) Description 11/03/2023 9:45 AM RN OCCUPATIONAL Ancillary Procedure [facility] [address] [place] [address] 12/08/2023 9:00 AM CDT [facility] [address] [place] [phone] Pilo Garrison MD [address] [place] [address] 12/09/2023 9:10 AM CDT Office Visit [facility] [address] [place] [address] Milagro Noriega DO [address] [place] [address] 12/21/2023 2:15 PM CDT Telemedicine [facility] [address] [place] [phone] Silvia Guadalupe MD [address] [place] [address] Health Maintenance Due Date Last Done Comments Zoster (shingles) series for age 50+ (1 of 2) 2022 Mammogram for age 45-75 10/28/2023 10/28/19, 04/03/2021, 11/05/2017, Additional history exists Depression screening for age 12+ 09/29/2024 09/29/2023, 08/10/2023, 07/15/2023, Additional history exists BMI (ht and wt on same day) for age 18+ 10/27/2024 10/27/2023, 04/20/2023, 04/16/2023, Additional history exists Pap test for age [...] history exists Medical Devices Implanted Type Area Private Household Worker Device Identifier Shelf Expiration Date Model / Serial / Lot [id number] - [id number] Implanted:Qty: 2 on 03/20/2016 by Jamal Walden MD at [facility] Bilateral: Ear Medtronic 07/04/2017 [id number] / / [id number] Description:Sam T-tube ear tubes Procedures Procedure Name Priority Date/Time Associated Diagnosis Comments SCAN-RADIOLOGY REPORT 10/23/2023 12:00 AM RN OCCUPATIONAL SCAN CORRESP-IMAGING 10/20/2023 12:00 AM RN OCCUPATIONAL SCAN-ULTRASOUND REPORT 09/25/2023 12:00 AM RN OCCUPATIONAL US LOWER EXTREMITY SOFT TISSUE LEFT Routine 09/23/2023 9:37 AM RN OCCUPATIONAL Leg mass, left HEMOGLOBIN A1C Routine 09/07/2023 8:53 AM RN OCCUPATIONAL Type 2 diabetes mellitus with microalbuminuria, with long-term current use of insulin (HC) from Last 3 Months Results * SCAN-RADIOLOGY REPORT (10/23/2023 12:00 AM RN OCCUPATIONAL) Anatomical Region Laterality Modality Other Scanner OTHER * SCAN CORRESP-IMAGING (10/20/2023 12:00 AM RN OCCUPATIONAL) Anatomical Region Laterality Modality Other Scanner OTHER * SCAN-ULTRASOUND REPORT (09/25/2023 12:00 AM RN OCCUPATIONAL) Anatomical Region Laterality Modality Other Scanner OTHER * US LOWER EXTREMITY SOFT TISSUE LEFT (09/23/2023 9:37 AM RN OCCUPATIONAL) Anatomical Region Laterality Modality ARM R Ultrasound 09/23/2023 2:39 PM RN OCCUPATIONAL Narrative 09/23/2023 2:39 PM RN OCCUPATIONAL For Patients: ??As a result of the Century Cures Act, medical imaging exams and procedure [...] 2023 ??2:39PM (Electronically Signed) ?? Procedure Note Stevne Muñoz MD - 09/23/2023 For Patients: As [...] Sep 23 2023 2:39PM (Electronically Signed) Milagro Noriega DO US * (ABNORMAL) HEMOGLOBIN A1C MONITORING (POCT) (09/07/2023 8:53 AM RN OCCUPATIONAL) HEMOGLOBIN A1C MONITORING (POCT) 7.7(H) <=6.4 % 09/07/2023 9:07 AM RN OCCUPATIONAL [facility] Blood BLOOD SPECIMEN / Unknown Venipuncture / Unknown 09/07/2023 8:53 AM RN OCCUPATIONAL 09/07/2023 8:53 AM RN OCCUPATIONAL Narrative [facility] - 09/07/2023 9:07 AM RN OCCUPATIONAL ? (<=6.9%) ? Indicates good control ? (7.0% to 7.9%) ? Indicates fair control ? (>=8.0%) ? Indicates poor control ?? NOTE: ??These thresholds are guidelines and ?individual targets may vary. Falsely low levels may be seen with: Recent Transfusion, Recent Significant Blood Loss, Hemolytic Diseases, or Falsely elevated levels may be seen with: Untreated Anemias, Splenectomy ? Milagro Noriega DO CHEMISTRY [facility] [address] [place] [address], [place] [phone] from Last 3 Months Advance Directives Latest Code Status on File Code Status Date Activated Date Inactivated Comments Full Code 03/20/2016 7:36 AM 03/20/2016 5:18 PM Question Answer Comments Code Status Discussion: Not Discussed Care Teams File Keeper Relationship Specialty Start Date End Date Milagro Noriega DO [address] [place] [address] PCP - General Family Practice 01/21/16 Silvia Guadalupe MD [address] [place] [address] Psychiatry Psychiatry 02/26/21
[2023-10-29] MEDS: SODIUM CHLORIDE 0.9 % (FLUSH) 10 ML SYRINGE IVF (07:58)
[2023-10-29] MEDS: CELECOXIB 200 MG CAPSULE PO (08:08)
[2023-10-29] MEDS: OXYCODONE (CR) 10 MG TAB.ER.12H PO (08:08)
[2023-10-29] MEDS: ACETAMINOPHEN 500 MG TABLET 1000 MG PO (08:08)
[2023-10-29] MEDS: LACTATED RINGERS 1000 ML 1,000 ML 100 ML IV (08:30)
--- NOTE | 2023-10-29 08:39 | SUR.PREOP ---
TIME?OUT:?0840 PT/RN/MDA?VERIFICATION?OF?SURGICAL?SITE,?PROCEDURE,?AND?CONSENT OBTAINED?PRIOR?TO?INVASIVE?PROCEDURE.
[2023-10-29] MEDS: fentaNYL 100 MCG/2 ML inj IVP (08:42)
[2023-10-29] MEDS: MIDAZOLAM HCL 1 MG/ML inj IVP (08:42)
--- NOTE | 2023-10-29 09:00 | CRLHL7_ITS ---
For Patients: As a result of the Cures Act, medical imaging exams and procedure reports are released immediately into your electronic medical record. You may view this report before your referring provider. If you have questions, please contact your health care provider. Indication: RIGHT ORIF ANKLE Technique: Four fluoroscopic images of the right ankle. Fluoroscopic time 122.1 seconds. IMPRESSION: Fluoroscopic guidance for open reduction internal fixation of distal fibular fracture and syndesmotic screw placement. Dictated by Steven Muñoz MD @ 10/29/2023 12:09:22 PM (Electronically Signed)
[2023-10-29] MEDS: CEFAZOLIN 2 GM INJ IVP (09:30)
--- NOTE | 2023-10-29 10:30 | PM.ORPRC ---
Procedure Note Date of procedure: 10/29/23 Procedure: PREOPERATIVE DIAGNOSIS: Right ankle Latham B bimalleolar fracture POSTOPERATIVE DIAGNOSIS: Right ankle Latham B bimalleolar fracture NAME OF OPERATION: Intramedullary nailing, syndesmotic screw placement SURGEON: Lester Araujo MD CLINICAL RESEARCH TECH: PEPE Gaitan ANESTHESIA: Spinal plus popliteal block ESTIMATED BLOOD LOSS: 0 mL COMPLICATIONS: None SPECIMENS: None DRAINS: None PREOPERATIVE ANTIBIOTICS: Ancef 3 g INDICATIONS: The patient is a 53-year-old who sustained an unstable right ankle fracture. ORIF was recommended. The risks, benefits and expected outcomes were discussed in detail. These included but were not limited to: Infection, bleeding, injury to blood vessel or nerve, venous thromboembolism. All questions were answered to their satisfaction. Use of an medical billing assistant was necessary throughout the case for patient positioning and safety, soft tissue retraction and closure. PROCEDURE: A popliteal block was placed by anesthesia. Spinal anesthesia was administered. The lower extremity was prepped and draped in the usual sterile fashion. A stab incision was made over the anterior and posterior aspect of the fibula. The Latham reduction clamp was used to obtain an anatomic reduction. The guide pin was placed in the center of the distal fragment of the fibula, percutaneously. Its placement was confirmed with the image intensifier in multiple views. A stab incision was made around the guide pin. The opening reamer was used. The 3.2 mm and 4.0 mm reamer were used in the proximal fragment. We placed the Arthrex 3.8 mm x 130 mm Intramedullary nail. The talons were deployed. We placed 2 screws in the distal fragment. The syndesmosis was stressed. There was some widening through the medial mortise, but not the syndesmosis. In order to beef up our fibular fixation we elected to place a syndesmotic screw. Therefore the drill sleeve was placed for the distal syndesmotic screw. We utilized 1 of our stab incisions. The drill was used across all 4 cortices. Length was measured with the guide pin. We placed a 3.5 mm x 52 mm Quadra cortical syndesmotic screw. The electronic assembler group leader was removed, the end cap was placed. This provides an anatomic reduction of the fibula with excellent fixation. The small posterior malleolus fragment is nicely reduced and was left alone. The medial injury is a deltoid ligament tear, no fracture. Implants were imaged in the AP, mortise and lateral views and were felt to be well placed with an excellent reduction. The talus is nicely reduced under the tibial plafond. The wounds were irrigated with normal saline. The medical billing assistant closed the skin with a 4-0 Monocryl in a subcuticular fashion. Glue was used to seal the skin. The medical billing assistant placed a dry dressing and short leg Edilberto Dominguez splint. Sponge and needle counts were correct x 2. The patient tolerated the procedure well. There were no apparent complications. They were carefully transferred to the hospital bed and taken to the postanesthesia care unit in satisfactory condition. PLAN: The patient will be discharged to home. They will remain strict nonweightbearing on the lower extremity. They will continue to work on ice and elevation. They will follow up in the office in 2 weeks for a wound check and three views of the ankle out of the splint, prior to being seen, in preparation for a short-leg cast, with continued nonweightbearing until she is 6 weeks postop.
--- NOTE | 2023-10-29 10:56 | W.ANESCHARGE ---
Anesthesia Charges Start Date/Time Anesthesia Start Date: 10/29/23 Anesthesia Start Time: 09:07 Stop Date/Time Anesthesia Stop Date: 10/29/23 Anesthesia Stop Time: 10:55
--- NOTE | 2023-10-29 12:32 | P.NB_ITS ---
Nerve Block Nerve Block Time Seen by Provider: 08:45 Date Seen: 10/29/23 Type of block requested by surgeon for post-operative analgesia: popliteal Side: right Time out performed: Yes Verification of patient name: Yes Verification of date of : Yes Site marking: site marked Name of person performing procedure: Micheal Continuous monitoring Was continuous monitoring of O2 sat, B/P, database technician, recorded every 15 minutes?: Yes Procedure Checklist: sterile prep, needles and gloves Ultrasound guided. Images saved: Yes Medications given in 5ml increments after negative aspiration: Ropivicaine %: 0.5 mL: 20 Needle gauge: 22 Patient tolerated procedure well: Yes Additional comments: Needle noted adjacent to nerve Block Charges Block Charge (with Pro Fee): Sciatic Nerve Use of Ultrasound Machine for Block: Yes- US Guidance/pain block
--- NOTE | 2023-10-29 12:33 | P.NB_ITS ---
Nerve Block Nerve Block Time Seen by Provider: 08:45 Date Seen: 10/29/23 Type of block requested by surgeon for post-operative analgesia: adductor canal Side: right Time out performed: Yes Verification of patient name: Yes Verification of date of : Yes Site marking: site marked Name of person performing procedure: Micheal Continuous monitoring Was continuous monitoring of O2 sat, B/P, quality assurance monitor final, recorded every 15 minutes?: Yes Procedure Checklist: sterile prep, needles and gloves Ultrasound guided. Images saved: Yes Medications given in 5ml increments after negative aspiration: Ropivicaine %: 0.5 mL: 20 Needle gauge: 20 Patient tolerated procedure well: Yes Additional comments: Needle noted adjacent to nerve Block Charges Block Charge (with Pro Fee): Femoral Nerve Use of Ultrasound Machine for Block: Yes- US Guidance/pain block
== END 2023-10-29 12:42 | disposition home or self-care (01) ==
PROVIDERS: PCP Family Medicine; Visit Provider Orthopaedic Surgery
PROC: (CPT 27814; principal; 2023-10-29 09:00)
DX: S82.841A Displaced bimalleolar fracture of right lower leg, initial encounter for closed fracture (principal); G89.18 Other acute postprocedural pain
CPT/HCPCS: 27814; 01480; 64445; 64447; 73600; 76000; 76942; 82962; 97116; 97161; A9270; C1713; J0690; J1100; J2250; J2405; J2704; J2795; J3010; J3490; J7120

== ENCOUNTER 2024-02-04 07:02 | Outpatient (CLI) | payer OTHER, SELFPAY ==
--- OUTSIDE RECORDS SUMMARY | 2024-02-04 07:04 | XMS_ITS | Clinical Summary ---
Author Name Unknown Organization [employer] [facility] [employer] [facility] Address [place], [place] [address] Care Team Providers Care Environmental Field Services Technician Name Role Phone HariMilagro Primary Care Provider [phone] Silvia Guadalupe MD Unavail able Allergies Active Allergy Reactions Criticality Noted Date Comments Lisinopril Throat Swelling/Closing High 02/24/2023 ?cause mild throat swelling Metformin Diarrhea 01/28/2022 Medications Medication Sig Dispensed Refills Start Date End Date Status melatonin 5 mg tab Take 1 tablet by mouth at bedtime. 019 Active blood-glucose meterIndications:Type II diabetes mellitus with complication (HC) Check three times daily. 1 Device 021 Active fluticasone (50 mcg per actuation) nasal solution (FLONASE)Indications:Dy sfunction of left eustachian tube Inhale 2 Sprays to both nostrils once daily. 16 g 3 022 Active nystatin (MYCOSTATIN) creamIndications:Yeast vaginitis Apply topically to affected area(s) 2 times daily. Until resolved. 90 g 022 Active lancetsIndications:Type II diabetes mellitus with complication (HC) Check three times daily 200 Each 3 023 Active betamethasone dipropionate 0.05% (DIPROSONE 0.05% CREAM) 0.05 % creamIndications:Psoria sis (a type of skin inflammation) Use 1-2 times daily on psoriasis until improved, then use as needed 60 g 1 023 Active albuterol HFA (PRO-AIR; VENTOLIN; PROVENTIL) 90 mcg/actuation inhalerIndications:Whee zing INHALE 1 TO 2 PUFFS BY MOUTH EVERY 4 HOURS NEEDED FOR SHORTNESS OF BREATH OR WHEEZING 6.7 g 023 Active cetirizine (ZYRTEC) 10 mg tabletIndications:Cough , unspecified type Take 1 Tablet (10 mg) by mouth once daily. 90 Tablet 3 023 Active esomeprazole (NEXIUM) 40 mg capsuleIndications:Uzma roesophageal reflux disease, unspecified whether esophagitis present TAKE 1 CAPSULE(40 MG) BY MOUTH EVERY DAY BEFORE A MEAL 90 Capsule 2 023 Active blood sugar diagnostic (MyMosa Verio test strips) stripIndications:Type II diabetes mellitus with complication (HC) USE TO TEST THREE TIMES DAILY 300 Each 3 023 Active LORazepam (ATIVAN) 0.5 mg tabIndications:Moderate recurrent major depression (HC),Generalized anxiety disorder,Panic attacks Take 1 Tablet (0.5 mg) by mouth once daily if needed (breakthrough anxiety). 30 Tablet 2 024 Active modafiniL (PROVIGIL) 200 mg tabletIndications:Moder ate recurrent major depression (HC),Hypersomnia Take 1 Tablet (200 mg) by mouth every morning. 90 Tablet 024 Active busPIRone (BUSPAR) 30 mg tabletIndications:Moder ate recurrent major depression (HC),Generalized anxiety disorder,Obsessive-comp ulsive disorder, unspecified type,Panic attacks Take 1 Tablet (30 mg) by mouth once daily. (In the morning) 90 Tablet 024 Active busPIRone (BUSPAR) 15 mg tabletIndications:Moder ate recurrent major depression (HC),Generalized anxiety disorder,Obsessive-comp ulsive disorder, unspecified type,Panic attacks Take 1 Tablet (15 mg) by mouth once daily. (At bedtime) 90 Tablet 024 Active tolnaftate 1% powder (TINACTIN) 1 % powderIndications:Tinea pedis of both feet Apply topically to affected area(s) two times daily. 108 g 024 Active ketoconazole 2% topical (NIZORAL) creamIndications:Tinea pedis of both feet Apply topically to affected area(s) two times daily. 60 g 1 024 Active propranolol ER (INDERAL LA) 120 mg Cs24 Sustained-Release capsuleIndications:HTN (hypertension) TAKE 1 CAPSULE(120 MG) BY MOUTH EVERY DAY 30 Capsule 024 Active BD Adrienne 2nd Gen Pen Needle 32 gauge x 5/32Indications:Uncont rolled type 2 diabetes mellitus with hyperglycemia (HC) REMOVE THE 2 COVERS ON THE PEN NEEDLE BEFORE ADMINISTERING INSULIN AND VICTOZA DOSE 200 Each 3 024 Active famotidine (PEPCID) 20 mg tabletIndications:Gastr oesophageal reflux disease, unspecified whether esophagitis present TAKE 1 TABLET(20 MG) BY MOUTH TWICE DAILY 180 Tablet 3 024 Active rosuvastatin (CRESTOR) 20 mg tabletIndications:Pure hypercholesterolemia Take 1 Tablet (20 mg) by mouth once daily. 90 Tablet 3 024 Active valsartan (DIOVAN) 40 mg tabletIndications:Type 2 diabetes mellitus with stage 2 chronic kidney disease, without long-term current use of insulin (HC) Take 1 Tablet (40 mg) by mouth two times daily. 90 Tablet 3 024 Active sertraline (ZOLOFT) 100 mg tabletIndications:Moder ate recurrent major depression (HC),Generalized anxiety disorder,Obsessive-comp ulsive disorder, unspecified type,Panic attacks Take 2 Tablets (200 mg) by mouth at bedtime. 180 Tablet 024 Active semaglutide (Ozempic) 2 mg/dose (8 mg/3 mL) penIndications:Uncontro lled type 2 diabetes mellitus with hyperglycemia (HC) Inject 0.75 mL (2 mg) subcutaneous once weekly. 3 mL 3 024 Active Clobetasol Propionate 0.05 % shampooIndications:Psor iasis of scalp APPLY A THIN LAYER ONTO DRY, TO THE AFFECTED AREA(S) SCALP DAILY. LEAVE ON FOR 15 MINUTES BEFORE LATHERING AND RINSING 118 mL 1 024 Active Lantus Solostar U-100 Insulin 100 unit/mL (3 mL) penIndications:Uncontro lled type 2 diabetes mellitus with hyperglycemia (HC) Inject 62 units subcutaneous before bedtime. 3 mL 2 024 Active Insulin Mission, Disposable, (BD Adrienne 2nd Gen Pen Needle) 32 gauge x 5/32Indications:Uncont rolled type 2 diabetes mellitus with hyperglycemia (HC) As directed. Remove the 2 covers on the insulin pen needle before administering insulin and victoza dose. 200 Each 3 023 2023 Discontinued Clobetasol Propionate 0.05 % shampooIndications:Psor iasis of scalp APPLY A THIN LAYER ONTO DRY, TO THE AFFECTED AREA(S) SCALP DAILY. LEAVE ON FOR 15 MINUTES BEFORE LATHERING AND RINSING 118 mL 1 023 2023 Discontinued(R eorder (E-cancel not sent)) famotidine (PEPCID) 20 mg tabletIndications:Gastr oesophageal reflux disease, unspecified whether esophagitis present TAKE 1 TABLET(20 MG) BY MOUTH TWICE DAILY 180 Tablet 2 023 2023 Discontinued Victoza 3-Jose E 0.6 mg/0.1 mL (18 mg/3 mL) subcutaneous penIndications:Uncontro lled type 2 diabetes mellitus with hyperglycemia (HC) ADMINISTER 1.8 MG UNDER THE SKIN EVERY DAY 9 mL 024 2023 Discontinued sertraline (ZOLOFT) 100 mg tabletIndications:Moder ate recurrent major depression (HC),Generalized anxiety disorder,Obsessive-comp ulsive disorder, unspecified type,Panic attacks Take 1 Tablet (100 mg) by mouth two times daily. 180 Tablet 024 2023 Discontinued(* Medication adjustment) Lantus Solostar U-100 Insulin 100 unit/mL (3 mL) penIndications:Uncontro lled type 2 diabetes mellitus with hyperglycemia (HC) Inject 58 units subcutaneous before bedtime. 45 mL 3 024 2023 Discontinued(* Medication adjustment) atorvastatin (LIPITOR) 10 mg tabletIndications:Type II diabetes mellitus with complication (HC) TAKE 1 TABLET(10 MG) BY MOUTH AT BEDTIME 30 Tablet 024 2023 Discontinued(* Med complete/Regim en complete/Level of care change) Victoza 3-Jose E 0.6 mg/0.1 mL (18 mg/3 mL) subcutaneous penIndications:Uncontro lled type 2 diabetes mellitus with hyperglycemia (HC) ADMINISTER 1.8 MG UNDER THE SKIN EVERY DAY 9 mL 024 2023 Discontinued(R eorder (E-cancel not sent)) liraglutide (Victoza 3-Jose E) 0.6 mg/0.1 mL (18 mg/3 mL) subcutaneous penIndications:Uncontro lled type 2 diabetes mellitus with hyperglycemia (HC) Inject 0.3 mL (1.8 mg) subcutaneous once daily. 9 mL 3 024 2023 Discontinued(* Medication adjustment) sertraline (ZOLOFT) 100 mg tabletIndications:Moder ate recurrent major depression (HC),Generalized anxiety disorder,Obsessive-comp ulsive disorder, unspecified type,Panic attacks Take 2 Tablets (200 mg) by mouth at bedtime. 024 2023 Discontinued(R eorder (E-cancel not sent)) Lantus Solostar U-100 Insulin 100 unit/mL (3 mL) penIndications:Uncontro lled type 2 diabetes mellitus with hyperglycemia (HC) Inject 60 units subcutaneous before bedtime. 024 2023 Discontinued(* Medication adjustment) Active Problems Problem Noted Date Diagnosed Date Headache, chronic daily 04/16/2023 Obsessive-compulsive disorder 04/16/2023 Type 2 diabetes mellitus wit h microalbuminuria, with long-term current use of insulin 02/25/2023 Hypersomnia 05/13/2021 Moderate recurrent major depression 02/26/2021 Social anxiety disorder 02/26/2021 Panic attacks 02/26/2021 HTN (hypertension) 09/13/2019 Controlled substance agreement signed 11/23/2017 Overview: Signed: 02/01/15-Dinorah Baxter APRN, BC, MEDICARE CONTACT SPECIALIST /mf Pap smear for cervical cancer screening [...] 06/17/2018 Overview: Under the care of Marybeth Baxter, BOBO-, MEDICARE CONTACT SPECIALIST for mental health care. [facility] Has seen Austin Baxter MD and Lashon Patel MD in the past for psychiatry. Previous Medication Trials: Paxil since 2006- recently changed to fluoxetine in 2014 due to sexual side effects from the paxil. 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 [address] [place] [address] Steven Henry MD Consult (Chest pain /Stress test 04/08/2023 ) 01/26/2024 Travel 01/26/2024 Refill [facility] [address] [place] [address] Milagro Noriega DO Refill Request (Famotidine) 01/25/2024 2:00 PM CDT Phone Office Visit [address] [phone] Phone Visit (DM education) 01/25/2024 Travel 01/20/2024 Refill [facility] [address] [place] [address] Milagro Noriega DO Refill Request (Bd Adrienne 2nd Gen Pen Needle) 01/07/2024 9:00 AM CDT Orders Only [facility] [address] [place] [address] Lab, [facility] 01/07/2024 Travel 01/06/2024 Refill [facility] [address] [place] [address] Milagro Noriega DO Refill Request (Victoza 3-jose e) 01/05/2024 Refill [facility] [address] [place] [address] Milagro Noriega DO Refill Request (Propranolol Er, Atorvastatin) 01/04/2024 8:20 AM CDT Office Visit [facility] [address] [place] [address] Milagro Noriega DO Diabetes 01/04/2024 Travel 12/29/2023 Orders Only [facility] Scanner 1 scan: (1-Ord) [facility], 12/29/2023 12/21/2023 2:15 PM CDT Telemedicine [facility] [address] [place] [address] Silvia Guadalupe MD Telehealth ([place]); Medication Management 12/21/2023 Travel 11/18/2023 Refill [facility] [address] [place] [address] Milagro Noriega DO Refill Request (Victoza 3-jose e) 11/08/2023 Refill [facility] [address] [place] [address] Silvia Guadalupe MD Refill Request (Sertraline) from Last 3 Months Immunizations Name Administration Dates Next Due AMB Influenza, IIV3 (Age >=3 years)(Flu Clinic Only) 08/15/2008 COVID-19 Vaccine Spikevax (M oderna 50mcg/0.5mL) 12YO+ [id number] Formula PF 09/07/2023 COVID-19 vaccine (Pfizer-Bio NTech 30mcg/0.3mL) 12YO+ BIVALENT PF, MDV 08/04/2022 COVID-19 vaccine (Pfizer-Bio NTech 30mcg/0.3mL) 12YO+ CHANG-SUCROSE PF, MDV 04/28/2022 COVID-19 vaccine (Pfizer-Bio NTech 30mcg/0.3mL) PF, MDV 04/28/2022,10/21/2021,01/31/2021,04/13/ 2021 Hepatitis B (Adult) 11/10/2022,04/28/2022,1992 Hepatitis B (Peds) [...] Past Smokeless Tobacco: Never Tobacco Cessation:Counseling Given: Yes Alcohol Use Standard Drinks/Week Comments Not Currently 0 (1 standard drink = 0.6 oz pur e alcohol) PHQ-2 Answer Date Recorded PHQ-2 TOTAL SCORE 2 12/21/2023 Social Connections Answer Date Recorded Frequency of [...] Sex Assigned at Female 08/08/2020 12:48 PM SUPPLY CHAIN ANALYST Gender Identity Female 08/08/2020 12:48 PM SUPPLY CHAIN ANALYST Sexual Orientation Straight 08/08/2020 12 :48 PM SUPPLY CHAIN ANALYST Obstetrics History Para Term AB IAB SAB Ectopic Multiple Livin g Live Births 2 1 1 0 1 1 0 0 0 1 1 Date Outcome GA Total Labor Labor/2nd/3rd Weight Sex Delivery Anes PTL Maya A1 A5 Name Cl in IAB 07/07 Term Lynne ng Last Filed Vital Signs Vital Sign Reading Time Taken Comments Blood Pressure 124/78 02/01/2024 8:51 AM CDT Pulse 78 02/01/2024 8:21 AM CDT Temperature 36.9 ??C (98.4 ??F) 11/27/2021 11:[address] Respiratory Rate 18 10/27/2023 9:42 AM SUPPLY CHAIN ANALYST Oxygen Saturation 96% 02/01/2024 8:21 AM CDT Inhaled Oxygen Concentration - - Weight 132 kg (291 lb) 02/01/2024 8:21 AM CDT Height 167.6 cm (5' 6) 10/27/2023 9:42 AM SUPPLY CHAIN ANALYST Body Mass Index 46.97 10/27/2023 9:42 AM SUPPLY CHAIN ANALYST Plan of Treatment Upcoming Encounters Date Type Department Care Team (Late st Contact Info) Description 02/11/2024 7:45 AM CDT Ancillary Procedure [facility] - Rosetta Samuel [address] [place] [address] LANEY Koenig [id number] 02/12/2024 9:30 AM CDT Preop Visit [facility] [address] [place] [address] Nraa Briceño PA [address] [place] [address] 03/10/2024 8:20 AM CDT Office Visit [facility] [address] [place] [address] Milagro Noriega DO [address] [place] [address] 03/14/2024 1:45 PM CDT Telemedicine [facility] [address] [place], [place] [id number] Silvia Guadalupe MD [address] [place] [address] [id number] Health Maintenance Due Date Last Done Comments Zoster (shingles) series for age 50+ (1 of 2) 2022 Mammogram for age 45-75 10/28/2023 10/28/19 23, 04/03/2021, 11/05/2017, Additional history exists Influenza for age 50-64 05/29/2024 06/15/20 23, 08/04/2022, 07/01/2021, Additional history exists BMI (ht and wt on same day) for age 18+ 10/27/2024 10/27/2023, 04/20/2023, 04/16/2023, Additional history exists Depression screening for age 12+ 12/20/2024 12/21/2023, 09/29/2023, 08/10/2023, Additional history exists Pap test for age 21-65 10/21/2026 , 10/21/2021, 07/21/2018, Additional history exists Lipids for age 45-75 01/03/2029 01/04/2024, 11/10/2022, 10/21/2021, Additional history exists Tetanus booster 02/21/2031 02/21/2021, 09/29, 09/28/1998 Colonoscopy through age 75 12/26/203112/25, 12/25/2021, 12/25/2021 Tdap Completed 10/23/2010 HIV for age 15-65 Completed 03/23/2017, 07/13/2007 Hepatitis C screening for ag e 18-79 Completed 03/23/2017 Pneumococcal series for age 6-64 Completed 08/04/20, 07/01/2021 Hepatitis B series for Diabetes Completed 11/10/2022, 04/28/2022, 01/30/1994, Additional history exists COVID-19 vaccine series Completed 09/07/20, 08/04/2022, 04/28/2022, Additional history exists Medical Devices Implanted Type Area Phlebotomist Lab Assistant Device Identifier Shelf Expiration Date Model / Serial / Lot [id number] - [id number] Implanted:Qty: 2 on 03/20/2016 by Jamal Walden MD at [facility] Bilateral: Ear Medtronic 07/04/2017 [id number] / / [id number] Description:Sam T-tube ear tubes Procedures Procedure Name Priority Date/Time Associated Diagnosis Comments URINE ALBUMIN TO CREATININE RATIO, RANDOM Routine 01/07/2024 7:45 AM CDT Type 2 diabetes mellitus with microalbuminuria, with long-term current use of insulin (HC) LDL CHOLESTEROL,DIRECT Routine 01/04/2024 8:24 AM CDT Hyperlipidemia, unspecified hyperlipidemia type BASIC METABOLIC PANEL Routine 01/04/2024 8:24 AM CDT Hypertension, unspecified type HEMOGLOBIN A1C Routine 01/04/2024 8:24 AM CDT Type 2 diabetes mellitus with microalbuminuria, with long-term current use of insulin (HC) SCAN-EYE EXAM 12/29/2023 12:00 AM CDT XR MAMMO BILAT SCREENING Routine 10/28/2022 8:16 AM SUPPLY CHAIN ANALYST Encounter for screening mammogram for malignant neoplasm of breast COLONOSCOPY SCREENING Routine 12/25/2021 7:59 AM CDT Screening for colon cancer HPV THIN PREP Routine 10/21/2021 11:45 AM SUPPLY CHAIN ANALYST Cervical cancer screening ANTI HIV 1/2 Add On 03/23/2017 3:43 PM CDT Screen for STD (sexually transmitted disease) ACUTE HEPATITIS PANEL Add On 03/23/2017 3:43 PM CDT Screen for STD (sexually transmitted disease) from Last 3 Months or Most Recently Relevant to Health Maintenance Results * URINE ALBUMIN TO CREATININE RATIO, RANDOM (01/07/2024 7:45 AM CDT) ALB RAND URINE <12.0 mg/L 01/07/2024 7:47 PM CDT [facility] CREATININE,URINE 1.42 g/L 01/07/20 24 7:47 PM CDT [facility] ALBUMIN TO CREATININE RATIO,RAND UR 01/07/2024 7:47 PM CDT [facility] Comment:Urine Albumin below measurement range, unable to calculate. Urine URINE SPECIMEN / Unknown Non-Blood / Unknown 01/07/2024 7:45 AM CDT 01/07/2024 9:12 AM CDT Narrative [facility] - 01/07/2024 7:47 PM CDT If Albumin to Creatinine Ratio is elevated, consider the following: ? Elevations seen with incipient nephropathy associated ?? with diabetes mellitus or hypertension. Stress, exercise,hematuria, ?? and urinary tract infection may also produce elevated results. If clinically indicated, confirm with ?24 Hour Albumin to Creatinine Ratio. ?? Milagro Noriega DO URINE [facility] [address] [address], * LDL CHOLESTEROL,DIRECT (01/04/2024 8:24 AM CDT) LDL CHOLESTEROL,DI RECT 76 mg/dL 01/04/2024 5:15 PM CDT [facility] PROVIDER ORDERED STATUS RANDOM 01/04/2024 5:15 PM CDT [facility] Blood BLOOD SPECIMEN / Unknown Venipuncture / Unknown 01/04/2024 8:24 AM CDT 01/04/2024 8:25 AM CDT Narrative [facility] - 01/04/2024 5:15 PM CDT Optimal ?<100 mg/dl Near Optimal ?100-129 mg/dl Borderline High ?? 130-159 mg/dl High ?160-189 mg/dl Very High ? >=190 mg/dl Milagro Noriega DO CHEMISTRY Performing Organization Address [facility] de Phone Number [facility] [address] [place] [address], [place] * (ABNORMAL) HEMOGLOBIN A1C MONITORING (POCT) (01/04/2024 8:24 AM CDT) HEMOGLOBIN A1C MONITORING (POCT) 8.5(H) <=6.4 % 01/04/2024 8:35 AM CDT [facility] Blood BLOOD SPECIMEN / Unknown Venipuncture / Unknown 01/04/2024 8:24 AM CDT 01/04/2024 8:25 AM CDT [facility] - 01/04/2024 8:35 AM CDT ? (<=6.9%) ? Indicates good control ? (7.0% to 7.9%) ? Indicates fair control ? (>=8.0%) ? Indicates poor control ?? NOTE: ??These thresholds are guidelines and ?individual targets may vary. Falsely low levels may be seen with: Recent Transfusion, Recent Significant Blood Loss, Hemolytic Diseases, or Falsely elevated levels may be seen with: Untreated Anemias, Splenectomy ? Milagro Noriega DO CHEMISTRY Performing Organization Address [facility] Co de Phone Number [facility] [address] [place] [address], [place] [phone] * (ABNORMAL) BASIC METABOLIC PANEL (01/04/2024 8:24 AM CDT) SODIUM 138 136 - 145 mmol/L 01/04/2024 5:15 PM CDT [facility] POTASSIUM 3.9 3.5 - 5.1 mmol/L 01/04/2024 5:15 PM CDT [facility] CHLORIDE 101 98 - 107 mmol/L 01/04/2024 5:15 PM CDT [facility] CO2,TOTAL 28 22 - 29 mmol/L 01/04/2024 5:15 PM CDT [facility] ANION GAP 9 5 - 18 01/04/2024 5:15 PM CDT [facility] GLUCOSE 157(H) 70 - 99 mg/dL 01/04/2024 5:15 PM CDT [facility] CALCIUM 9.1 8.6 - 10.0 mg/dL 01/04/2024 5:15 PM CDT [facility] BUN 15 6 - 20 mg/dL 01/04/2024 5:15 PM CDT [facility] CREATININE 0.74 0.50 - 0.90 mg/dL 01/04/2024 5:15 PM CDT [facility] BUN/CREAT RATIO 20 10 - 20 5:15 PM CDT [facility] eGFR >90 >90 mL/min/1.7 3m2 01/04/2024 5:15 PM CDT [facility] Comment:As of 2021, eG FR is calculated by the CKD-EPI creatinine equation without race adjustment. ??eGFR can be influenced by muscle mass, exercise, and diet. ??The reported eGFR is an estimation only and is only applicable if the renal function is stable. Blood BLOOD SPECIMEN / Unknown Venipuncture / Unknown 01/04/2024 8:24 AM CDT 01/04/2024 8:25 AM CDT Milagro Noriega DO CHEMISTRY [facility] [address] [place] [address], * SCAN-EYE EXAM (12/29/2023 12:00 AM CDT) Scanner OTHER * XR MAMMO BILAT SCREENING (10/28/2022 8:16 AM SUPPLY CHAIN ANALYST) Anatomical Region Laterality Modality BREASTS, Breast Left, Breast Right Bilateral Mammography Impressions 10/28/2022 3:36 PM SUPPLY CHAIN ANALYST ??There is no radiographic evidence for malignancy. ??Recommend annual mammograms. MAMMOGRAM ASSESSMENT: ??ACR 1 Negative PATIENTS: You will also receive a letter with your examination results in an easy to read format. ??If you have questions about your results, please contact your referring provider. Narrative 10/28/2022 3:36 PM SUPPLY CHAIN ANALYST For Patients: As a result of the Century Cures Act, medical imaging exams and procedure reports are released immediately into your electronic medical record. You may view this report before your referring provider. If you have questions, please contact your health care provider. XR MAMMO BILAT SCREENING [[id number]] CLINICAL HISTORY: ??This is an asymptomatic 52 y.o. patient. INDICATION FOR EXAM: Mammogram Screening. TECHNIQUE: CC & MLO views were obtained. ??This study was evaluated with the assistance of Computer-Aided Detection. COMPARISON FILM: Yes 04/03/21 [facility] 11/05/17 [facility] FINDINGS: ??The breasts have scattered areas of fibroglandular density. There are no dominant masses, suspicious micro calcifications or areas of architectural distortion. Milagro Noriega DO MAMMO * COLONOSCOPY (12/25/2021 8:43 AM CDT) 12/25/2021 8:43 AM CDT Narrative Transcriptions Hubert You MD - 12/25/2021 9:24 AM CDT Patient Name: Mary Ellen Alcaraz Procedure Date: 12/25/2021 Gender: Female Date of : 1970 Admit Type: Outpatient Procedure: Colonoscopy Proceduralist: Hubert You MD , Tatiana Goldman RN (Nurse) Referring MD: Milagro Noriega Indications/Pre-Op Diagnosis: Screening for colorectal malignant neoplasm, This is the patient's first colonoscopy Medications: Fentanyl 100 micrograms IV, Midazolam 2 mgIV, The level of sedation administered wasmoderate Procedure Description: The patient had risks, benefits and alternatives explained to andgave informed consent. The patient had a stable cardiopulmonary status and judged an adequate candidate for conscious sedation. The colonoscope was passed through the anus and advanced to thececum, identified by appendiceal orifice and ileocecal valve. Thecolonoscopy was performed without difficulty. The patient tolerated the procedure well. The quality of the bowel preparation was good. The ileocecal valve, appendiceal orifice, and rectum were photographed. Complications: No immediate complications. Estimated Blood Loss & Specimen: Estimated blood loss: none. Specimen collected - None Findings: The perianal and digital rectal examinations were normal. The entire examined colon appeared normal. Impressions/Post-Op Diagnosis: - The entire examined colon is normal. - No specimens collected. Recommendation: - Patient has a contact number available for emergencies. The signsand symptoms of potential delayed complications were discussed with the patient. Return to normal activities tomorrow. Written discharge instructions were provided to the patient. - Resume previous diet. - Continue present medications. - Await pathology results. - Repeat colonoscopy in 10 years for screening purposes. Moderate Sedation: Moderate (conscious) sedation was administered by the endoscopy nurse and supervised by the endoscopist. The following parameters were monitored: oxygen saturation, heart rate, respiratory rate, blood pressure, adequacy of pulmonary ventilation and reponse to care. Please refer to the patient's medical record flowsheets and nursing notes for moderate sedation details. Total physician intraservice time was 18 minutes. Hubert You MD 12/25/2021 9:23:55 AM This report has been signed electronically. Note Initiated On: 12/25/2021 8:43 AM Procedure Code(s): --- Professional --- 17294, Colonoscopy, flexible; diagnostic, including collection of specimen(s) bybrushing or washing, when performed (separateprocedure) Diagnosis Code(s): --- Professional --- Z12.11, Encounter for screening formalignant neoplasm of colon CPT copyright 2020 [employer]. All rights reserved. The codes documented in this report are preliminary and upon automatic coin machine mechanic reviewmay be revised to meet current compliance requirements. Scope In: 9:01:49 AM Scope Withdrawal Time 0 hours 7 minutes 22 seconds Scope Out: 9:17:38 AM Hubert You MD PROCEDURE ORD * HPV HIGH RISK (10/21/2021 11:45 AM SUPPLY CHAIN ANALYST) TYPE 16 Negative Negative 10/23/2021 12:15 PM SUPPLY CHAIN ANALYST [facility] TYPE 18 Negative Negative 10/23/2021 12:15 PM SUPPLY CHAIN ANALYST [facility] OTHER HIGH RISK TYPES Negative Negative 10/23/2021 12:15 PM SUPPLY CHAIN ANALYST [facility] Other (Cervical) Non-Blood / Unknown 10/21/2021 11:45 AM SUPPLY CHAIN ANALYST 10/22/2021 9:38 AM SUPPLY CHAIN ANALYST Narrative [facility] - 10/23/2021 12:15 PM SUPPLY CHAIN ANALYST HPV types 16, 18, 31, 33, 35, 39, 45, 51, 52, 56, 58, 59, 66 and 68 DNA were undetectable or below the pre-set threshold. Methodology: [employer] 4800 HPV Test Milagro Noriega DO MICROBIOLOGY Performing Organization Address [facility]/ZIP Co de Phone Number [facility] [address] [place] [address], * ANTI HIV 1/2 (03/23/2017 3:43 PM CDT) HIV-1/HIV-2 ANTIBODY Non-Reacti ve Non-Reacti ve 03/25/2017 3:58 PM CDT [facility] Blood BLOOD SPECIMEN / Unknown Venipuncture / Unknown 03/23/2017 3:43 PM CDT 03/23/2017 3:43 PM CDT Narrative [facility] - 03/25/2017 3:58 PM CDT HIV-1 p24 and HIV-1/HIV-2 Ab not detected Milagro Noriega DO SEND OUTS Performing Organization Address [facility] Co de Phone Number [facility] [address] [place] [address], * ACUTE HEPATITIS PANEL (03/23/2017 3:43 PM CDT) HEPATITIS C ANTIBODY Non-Reactive Non-Reactive 03/25/2017 3:58 PM CDT [facility] IGM ANTI HAV Non-Reactive Non-Reactive 03/25/20 17 3:58 PM CDT [facility] HBSAG Nonreactive Nonreactive 03/25/2017 3:58 PM CDT [facility] IGM ANTI HBC Non-Reactive Non-Reactive 03/25/20 17 3:58 PM CDT [facility] Blood BLOOD SPECIMEN / Unknown Venipuncture / Unknown 03/23/2017 3:43 PM CDT 03/23/2017 3:43 PM CDT Narrative [facility] - 03/25/2017 3:58 PM CDT Anti-HBc IgM not detected. Does not exclude the possibility of exposure to or infection with HBV. Milagro Noriega DO SEND OUTS Performing Organization Address City/[facility]/ZIP Co de Phone Number [facility] [address] [place] [address], from Last 3 Months or Most Recently Relevant to Health Maintenance Advance Directives * Full Code (Latest Code Status on File) Date Activated Date Inactivated Comments 03/20/2016 7:36 AM 03/20/2016 5:18 PM Question Answer Comments Code Status Discussion: Not Discussed Care Teams Environmental Field Services Technician Relationship Specialty Start Date End Date Milagro Noriega DO [address] [place] [address] PCP - General Family Practice 01/21/16 Silvia Guadalupe MD [address] [place] [address] Psychiatry Psychiatry 02/26/21
--- NOTE | 2024-02-04 07:15 | MR_ITS ---
[address] [address] Phone:?[phone] Fax:?[phone] Referring Physician Information: Lester Araujo M.D. [address] [facility] [address] Phone:?[phone] Fax:?[phone] Patient:Montserrat Alcaraz D.O.B:?1970 Sex:?Female Phone:?[phone] [facility] MRN:?[id number] Exam Date:?02/04/2024 EXAM: MRI OF THE LEFT KNEE CLINICAL INFORMATION: The patient is a 53-year-old with left knee pain. Evaluate for medial meniscal tear. PRIOR SURGERY: None reported. COMPARISON STUDIES: There are no prior studies available for comparison. TECHNICAL INFORMATION: Imaging was performed on a high-field, 1.5 Odilia MR scanner. Axial proton-density and fat-suppressed T2 imaging of the left knee was performed in addition to sagittal proton-density and fat-suppressed T2 imaging. Coronal proton-density, T2, and STIR imaging was also performed. FINDINGS: Articular/Extraarticular collections: Effusion: Mild to moderate. Popliteal cyst: None. Loose bodies: No well-defined intra-articular loose bodies are present. Subcutaneous and extraarticular soft tissues: Nonspecific subcutaneous soft tissue edema and/or hemorrhage can be seen along the anterior aspect of the knee on sagittal series 6 image 17 and on axial series 4 image 18. Osseous structures: Mild reactive bony changes are seen along the posteromedial aspect of the medial tibial plateau on coronal series 8 image 20, in keeping with the meniscal tearing and degeneration discussed below. Additional cortical irregularity and subcortical cystic changes along the far posterior articular surfaces of the medial femoral condyle can be seen on sagittal series 6 image 8, in keeping with chondromalacia and chondral loss described below. Reactive bony changes along the central articular surfaces of the femoral trochlea can be seen, also in keeping with chondral loss described below. No other bony abnormalities about the knee are seen. No well-defined fracture, contusion, or stress injury can be seen. Ligamentous structures: ACL: Intact and normal in appearance. PCL: Intact and normal in appearance. MCL: Intact and normal in appearance. LCL: Intact and normal in appearance. Posterolateral corner: Intact and normal in appearance. Posteromedial corner: No posteromedial corner soft tissue injury. Semimembranosus and pes anserine tendons demonstrate no tendinopathy or associated bursitis. Extensor mechanism/Patellar retinacular structures: Patellar tendon: Intact, without tendinopathy. Quadriceps tendon: Intact, without tendinopathy. Retinacula: The medial and lateral retinacula are intact. The medial patellofemoral ligament is intact. Medial compartment: Medial meniscus: There is degeneration and poorly defined tearing of the middle one third of the medial meniscus seen on coronal series 7 image 18, measuring approximately 5 mm in greatest dimension. Additional apical free edge fraying and irregularity of the posterior horn of the medial meniscus can be seen on sagittal series 5 image 11. The anterior horn appears intact. No parameniscal cyst formation is identified. Medial femoral condyle: Chondromalacia and chondral loss can be seen along the far posterior articular surfaces of the medial femoral condyle with underlying bony changes, seen on sagittal series 6 image 9 and on axial series 4 image 17. The area measures 12 mm in greatest dimension. No definite chondral defects along the weightbearing surfaces are seen. Medial tibial plateau: No chondromalacia, chondral defect, or osteochondral abnormality. Lateral compartment: Lateral meniscus: No evidence for lateral meniscal tearing is present. No evidence for parameniscal cyst formation can be seen. Lateral femoral condyle: No chondromalacia, chondral defect, or osteochondral abnormality. Lateral tibial plateau: No chondromalacia, chondral defect, or osteochondral abnormality. Patellofemoral compartment: Patella: No chondromalacia, chondral defect, or osteochondral abnormality. Trochlea: Full-thickness and near full-thickness chondral loss can be seen along the central articular surfaces of the femoral trochlea with underlying bony change. The area of chondromalacia and chondral loss measures 10 mm in greatest dimension. Neurovascular: No definite neurovascular abnormalities are seen. CONCLUSION: 1. 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 No lateral meniscal tearing is present. 2. 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 Underlying bony changes are seen. 3. The cruciate and collateral ligaments appear intact. 4. Mild to moderate knee joint effusion. AEC Electronically signed on 02/04/2024 12:30:00 PM by Matt Dan M.D.
== END 2024-02-04 07:03 | disposition home or self-care (01) ==
LOC: MRI 07:02
PROVIDERS: PCP Family Medicine; Visit Provider Orthopaedic Surgery
DX: M25.562 Pain in left knee (principal); S83.242A Other tear of medial meniscus, current injury, left knee, initial encounter; M94.262 Chondromalacia, left knee; M25.462 Effusion, left knee
CPT/HCPCS: 73721

== ENCOUNTER 2024-03-09 07:30 | Outpatient (RCR) | payer MEDICARE, SELFPAY | END 2024-05-02 09:14 | disposition home or self-care (01) | PROVIDERS: PCP Family Medicine; Visit Provider Orthopaedic Surgery | DX: Z98.890 Other specified postprocedural states (principal); Z87.81 Personal history of (healed) traumatic fracture; Z51.89 Encounter for other specified aftercare | CPT/HCPCS: 97110; 97112; 97140; 97161 ==

== ENCOUNTER 2024-03-17 06:58 | Day surgery (SDC) | payer OTHER, SELFPAY ==
--- OUTSIDE RECORDS SUMMARY | 2024-03-17 07:00 | XMS_ITS | Clinical Summary ---
Author Organization [employer] Address [place], [place] [address] Care Team Providers Care In Flight Refueling Manager Name Role Phone Meka Noriegaher Haydee VASQUEZ Primary Care Provider [phone] Silvia Guadalupe MD Unavail able Allergies Active Allergy Reactions Criticality Noted Date Comments Lisinopril Throat Swelling/Closing High 02/24/2023 ?cause mild throat swelling Metformin Diarrhea 01/28/2022 Medications Medication Sig Dispensed Refills Start Date End Date Status melatonin 5 mg tab Take 1 tablet by mouth at bedtime. 09/13/20 19 Active blood-glucose meterIndications:Type II diabetes mellitus with complication (HC) Check three times daily. 1 Device 01/02/20 21 Active fluticasone (50 mcg per actuation) nasal solution (FLONASE)Indications:Dys function of left eustachian tube Inhale 2 Sprays to both nostrils once daily. 16 g 3 10/21/19 22 Active nystatin (MYCOSTATIN) creamIndications:Yeast vaginitis Apply topically to affected area(s) 2 times daily. Until resolved. 90 g 04/28/20 22 Active lancetsIndications:Type II diabetes mellitus with complication (HC) Check three times daily 200 Each 3 12/19/19 23 Active betamethasone dipropionate 0.05% (DIPROSONE 0.05% CREAM) 0.05 % creamIndications:Psorias is (a type of skin inflammation) Use 1-2 times daily on psoriasis until improved, then use as needed 60 g 1 02/10/20 23 Active albuterol HFA (PRO-AIR; VENTOLIN; PROVENTIL) 90 mcg/actuation inhalerIndications:Wheez ing INHALE 1 TO 2 PUFFS BY MOUTH EVERY 4 HOURS NEEDED FOR SHORTNESS OF BREATH OR WHEEZING 6.7 g 03/26/20 23 Active cetirizine (ZYRTEC) 10 mg tabletIndications:Cough, unspecified type Take 1 Tablet (10 mg) by mouth once daily. 90 Tablet 3 06/03/20 23 Active esomeprazole (NEXIUM) 40 mg capsuleIndications:Gastr oesophageal reflux disease, unspecified whether esophagitis present TAKE 1 CAPSULE(40 MG) BY MOUTH EVERY DAY BEFORE A MEAL 90 Capsule 2 08/01/20 23 Active blood sugar diagnostic (Credii Verio test strips) stripIndications:Type II diabetes mellitus with complication (HC) USE TO TEST THREE TIMES DAILY 300 Each 3 09/14/20 23 Active LORazepam (ATIVAN) 0.5 mg tabIndications:Moderate recurrent major depression (HC),Generalized anxiety disorder,Panic attacks Take 1 Tablet (0.5 mg) by mouth once daily if needed (breakthrough anxiety). 30 Tablet 2 09/29/19 24 Active tolnaftate 1% powder (TINACTIN) 1 % powderIndications:Tinea pedis of both feet Apply topically to affected area(s) two times daily. 108 g 01/04/20 24 Active ketoconazole 2% topical (NIZORAL) creamIndications:Tinea pedis of both feet Apply topically to affected area(s) two times daily. 60 g 1 01/04/20 24 Active BD Adrienne 2nd Gen Pen Needle 32 gauge x 5/32Indications:Uncontr olled type 2 diabetes mellitus with hyperglycemia (HC) REMOVE THE 2 COVERS ON THE PEN NEEDLE BEFORE ADMINISTERING INSULIN AND VICTOZA DOSE 200 Each 3 01/21/20 24 Active famotidine (PEPCID) 20 mg tabletIndications:Gastro esophageal reflux disease, unspecified whether esophagitis present TAKE 1 TABLET(20 MG) BY MOUTH TWICE DAILY 180 Tablet 3 01/26/20 24 Active rosuvastatin (CRESTOR) 20 mg tabletIndications:Pure hypercholesterolemia Take 1 Tablet (20 mg) by mouth once daily. 90 Tablet 3 01/26/20 24 Active valsartan (DIOVAN) 40 mg tabletIndications:Type 2 diabetes mellitus with stage 2 chronic kidney disease, without long-term current use of insulin (HC) Take 1 Tablet (40 mg) by mouth two times daily. 90 Tablet 3 01/26/20 24 Active semaglutide (Ozempic) 2 mg/dose (8 mg/3 mL) penIndications:Uncontrol led type 2 diabetes mellitus with hyperglycemia (HC) Inject 0.75 mL (2 mg) subcutaneous once weekly. 3 mL 3 02/01/20 24 Active Clobetasol Propionate 0.05 % shampooIndications:Psori asis of scalp APPLY A THIN LAYER ONTO DRY, TO THE AFFECTED AREA(S) SCALP DAILY. LEAVE ON FOR 15 MINUTES BEFORE LATHERING AND RINSING 118 mL 1 02/01/20 24 Active Lantus Solostar U-100 Insulin 100 unit/mL (3 mL) penIndications:Uncontrol led type 2 diabetes mellitus with hyperglycemia (HC) Inject 62 units subcutaneous before bedtime. 3 mL 2 02/01/20 24 Active propranolol ER (INDERAL LA) 120 mg Cs24 Sustained-Release capsuleIndications:HTN (hypertension) TAKE 1 CAPSULE(120 MG) BY MOUTH EVERY DAY 60 Capsule 02/07/20 24 Active triamcinolone 0.1 % ointmentIndications:Derm atitis of both ear canals Apply topically to affected area(s) two times daily. 15 g 02/12/20 24 Active busPIRone (BUSPAR) 15 mg tabletIndications:Modera te recurrent major depression (HC),Generalized anxiety disorder,Obsessive-compu lsive disorder, unspecified type,Social anxiety disorder,Panic attacks Take 1 Tablet (15 mg) by mouth once daily. (At bedtime) 90 Tablet 03/14/20 24 Active busPIRone (BUSPAR) 30 mg tabletIndications:Modera te recurrent major depression (HC),Generalized anxiety disorder,Obsessive-compu lsive disorder, unspecified type,Social anxiety disorder,Panic attacks Take 1 Tablet (30 mg) by mouth once daily. (In the morning) 90 Tablet 03/14/20 24 Active sertraline (ZOLOFT) 100 mg tabletIndications:Modera te recurrent major depression (HC),Generalized anxiety disorder,Obsessive-compu lsive disorder, unspecified type,Social anxiety disorder,Panic attacks Take 2 Tablets (200 mg) by mouth at bedtime. 180 Tablet 03/14/20 24 Active modafiniL (PROVIGIL) 200 mg tabletIndications:Modera te recurrent major depression (HC),Hypersomnia Take 1 Tablet (200 mg) by mouth once daily in the morning. 90 Tablet 03/14/20 24 Active modafiniL (PROVIGIL) 200 mg tabletIndications:Modera te recurrent major depression (HC),Hypersomnia Take 1 Tablet (200 mg) by mouth every morning. 90 Tablet 12/21/19 24 024 Discontin ued(Reord er (E-cancel not sent)) busPIRone (BUSPAR) 30 mg tabletIndications:Modera te recurrent major depression (HC),Generalized anxiety disorder,Obsessive-compu lsive disorder, unspecified type,Panic attacks Take 1 Tablet (30 mg) by mouth once daily. (In the morning) 90 Tablet 12/21/19 24 024 Discontin ued(Reord er (E-cancel not sent)) busPIRone (BUSPAR) 15 mg tabletIndications:Modera te recurrent major depression (HC),Generalized anxiety disorder,Obsessive-compu lsive disorder, unspecified type,Panic attacks Take 1 Tablet (15 mg) by mouth once daily. (At bedtime) 90 Tablet 12/21/19 24 024 Discontin ued(Reord er (E-cancel not sent)) sertraline (ZOLOFT) 100 mg tabletIndications:Modera te recurrent major depression (HC),Generalized anxiety disorder,Obsessive-compu lsive disorder, unspecified type,Panic attacks Take 2 Tablets (200 mg) by mouth at bedtime. 180 Tablet 01/28/20 24 024 Discontin ued(Reord er (E-cancel not sent)) metoprolol tartrate (LOPRESSOR) 50 mg tabletIndications:Prepro cedural examination Take 2 Tablets (100 mg) by mouth one time for 1 dose. 02/26/20 24 024 Discontin ued(*Med complete/ Regimen complete/ Level of care change) nitroglycerin (NITROSTAT) 0.4 mg sublingual tabletIndications:Prepro cedural examination Place 2 Tablets (0.8 mg) under the tongue one time for 1 dose. Up to 3 tablets in 15 minutes. 02/26/20 24 024 Discontin ued(*Med complete/ Regimen complete/ Level of care change) metoprolol tartrate (LOPRESSOR) 5 mg/5 mL injectionIndications:Pre -procedure lab exam Inject 20 mg intravenous one time. 024 Discontin ued(*Med complete/ Regimen complete/ Level of care change) Active Problems Problem Noted Date Diagnosed Date Headache, chronic daily 04/16/2023 Obsessive-compulsive disorder 04/16/2023 Type 2 diabetes mellitus wit h microalbuminuria, with long-term current use of insulin 02/25/2023 Hypersomnia 05/13/2021 Moderate recurrent major depression 02/26/2021 Social anxiety disorder 02/26/2021 Panic attacks 02/26/2021 HTN (hypertension) 09/13/2019 Controlled substance agreement signed 11/23/2017 Overview: Signed: 02/01/15-Dinorah Baxter, BOBO, BC, PRODUCT ENGINEERING MANAGER /mf Pap smear for cervical cancer screening [...] Under the care of Marybeth Baxter, BOBO-, PRODUCT ENGINEERING MANAGER for mental health care. [facility] Has seen Austin Baxter MD and Lashon Patel MD in the past for psychiatry. Previous Medication Trials: Paxil since 2006- recently changed to fluoxetine in 2014 due to sexual side effects from the paxil. 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 02/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 MAJOR DEPRESSION RECURRENT 01/18/2007 0 03/22/2015 Encounters Date Type Department Care Team Description 03/14/2024 1:45 PM CDT Telemedicine [facility] [address] [place] [address] Silvia Guadalupe MD Telehealth ([place]); Medication Management 03/14/2024 Travel 03/10/2024 8:20 AM CDT Office Visit [facility] [address] [place] [address] Milagro Noriega DO Diabetes 03/10/2024 Travel 03/08/2024 10:20 AM CDT Preop Visit [facility] [address] [facility] [place] [address] Nara Briceño PA Preoperative Exam (03/17/24/[facility]/Dr. Araujo /Screw removal right ankle/) 03/07/2024 Travel 02/29/2024 Telephone [facility] [address] [place] [address] Brooke Reyes MD Results (CTCA and labs.) 02/26/2024 9:00 AM CDT Ancillary Procedure [facility] [address] [place] [address] 02/26/2024 Travel 02/24/2024 9:00 AM CDT Orders Only [facility] [address] [facility] [place] [address] Lab, [facility] Lab 02/23/2024 Travel 02/12/2024 9:30 AM CDT Preop Visit [facility] [address] [facility] [place] [address] Nara Briceño PA Preoperative Exam (Screws removed from right ankle/02/18/24/[facility]/Dr. Araujo ) 02/12/2024 Travel 02/09/2024 Orders Only [facility] [address] [place] [address] Seng Guallpa MD <No scans attached> 02/06/2024 Refill [facility] [address] [facility] [place] [address] Milagro Noriega DO Refill Request (Propranolol Er) 02/04/2024 Orders Only [facility] Scanner 1 scan: (1-Ord) MORRAL, LEFT KNEE, 02/04/2024 02/03/2024 Orders Only [facility] Scanner 1 scan: (1-Ord) INCOMING RECORDS-DIABETIC EYE, [facility], 02/03/2024 02/01/2024 8:20 AM CDT Office Visit [facility] [address] [facility] [place] [address] Milagro Noriega DO Diabetes 02/01/2024 Travel 01/26/2024 9:30 AM CDT Office Visit [facility] [address] [facility] [place] [id number] Brooke Reyes MD Consult (Chest pain /Stress test 04/08/2023 ) 01/26/2024 Travel 01/26/2024 Refill [facility] [address] [facility] [place] [address] Milagro Noriega DO Refill Request (Famotidine) 01/25/2024 2:00 PM CDT Phone Office Visit [address] [phone] Phone Visit (DM education) 01/25/2024 Travel 01/20/2024 Refill [facility] [address] [facility] [place] [address] Milagro Noriega DO Refill Request (Bd Adrienne 2nd Gen Pen Needle) 01/07/2024 9:00 AM CDT Orders Only [facility] [address] [facility] [place] [address] Lab, [facility] 01/07/2024 Travel 01/06/2024 Refill [facility] [address] [facility] [place] [address] Milagro Noriega DO Refill Request (Victoza 3-jerson) 01/05/2024 Refill [facility] [address] [facility] [place] [address] Milagro Noriega DO Refill Request (Propranolol Er, Atorvastatin) 01/04/2024 8:20 AM CDT Office Visit [facility] [address] [facility] [place] [address] Milagro Noriega DO Diabetes 01/04/2024 Travel 12/29/2023 Orders Only [facility] Scanner 1 scan: (1-Ord) [facility], 12/29/2023 12/21/2023 2:15 PM CDT Telemedicine [facility] [address] [place] [address] Silvia Guadalupe MD Telehealth ([place]); Medication Management 12/21/2023 Travel from Last 3 Months Immunizations Name Administration Dates Next Due AMB Influenza, IIV3 (Age >=3 years)(Flu Clinic Only) 08/15/2008 COVID-19 Vaccine Spikevax (M oderna 50mcg/0.5mL) 12YO+ [id number] Formula PF 09/07/2023 COVID-19 vaccine (Pfizer-Bio NTech [...] PHQ-2 Answer Date Recorded PHQ-2 TOTAL SCORE 5 03/14/2024 Social Connections Answer Date Recorded Frequency of [...] Sex Assigned at Female 08/08/2020 12:48 PM CHIEF STRATEGY OFFICER Gender Identity Female 08/08/2020 12:48 PM CHIEF STRATEGY OFFICER Sexual Orientation Straight 08/08/2020 12 :48 PM CHIEF STRATEGY OFFICER Obstetrics History Para Term AB IAB SAB Ectopic Multiple Livin g Live Births 2 1 1 0 1 1 0 0 0 1 1 Date Outcome GA Total Labor Labor/2nd/3rd Weight Sex Type Anes PTL Maya A1 A5 Name Clin IAB 2005 Term C-Sec tion Living Last Filed Vital Signs Vital Sign Reading Time Taken Comments Blood Pressure 115/79 03/10/2024 8:21 AM CDT Pulse 75 03/10/2024 8:21 AM CDT Temperature 36.4 ??C (97.5 ??F) 03/08/2024 10:17 AM C DT Respiratory Rate 16 03/08/2024 10:17 AM CDT Oxygen Saturation 96% 03/10/2024 8:21 AM CDT Inhaled Oxygen Concentration - - Weight 127.9 kg (282 lb) 03/10/2024 8:21 AM CDT Height 169.2 cm (5' 6.61) 03/08/2024 10:17 AM C DT Body Mass Index 44.68 03/08/2024 10:17 AM CDT Plan of Treatment Upcoming Encounters Date Type Department Care Team (Late st Contact Info) Description 03/23/2024 8:30 AM CDT Office Visit [address] [phone] Ann-Marie Abel AuD [address] [place] [phone] 03/23/2024 9:00 AM CDT Office Visit [address] [phone] Ann-Marie Lyons PA [address] [place] [address] 04/05/2024 10:25 AM CDT Office Visit [facility] [address] [place] [address] Milagro Noriega DO [address] [place] [address] 06/07/2024 1:45 PM CDT Telemedicine [facility] [address] [place], [place] [phone] Silvia Guadalupe MD [address] [id number] Health Maintenance Due Date Last Done Comments Zoster (shingles) series for age 50+ (1 of 2) 2022 Mammogram for age 45-75 10/28/2023 10/28/19, 04/03/2021, 11/05/2017, Additional history exists Influenza for age 50-64 05/29/2024 06/15/20, 08/04/2022, 07/01/2021, Additional history exists BMI (ht and wt on same day) for age 18+ 03/08/2025 03/08/2024, 02/12/2024, 10/27/2023, Additional history exists Depression screening for age 12+ 03/14/2025 03/14/2024, 12/21/2023, 09/29/2023, Additional history exists Pap test for age 21-65 10/21/2026 , 10/21/2021, 07/21/2018, Additional history exists Lipids for age 45-75 02/23/2029 02/24/2024, 01/04/2024, 11/10/2022, Additional history exists Tetanus booster 02/21/2031 02/21/2021, [...] history exists Medical Devices Implanted Type Area Wash Driller Helper Device Identifier Shelf Expiration Date Model / Serial / Lot [id number] - [id number] Implanted:Qty: 2 on 03/20/2016 by Jamal Walden MD at [facility] Bilateral: Ear Medtronic 07/04/2017 [id number] / / [id number] Description:Sam T-tube ear tubes Procedures Procedure Name Priority Date/Time Associated Diagnosis Comments CT CARDIAC CORONARY ARTERIES DUAL READ Routine 02/26/2024 9:51 AM CDT Arteriosclerotic heart disease LIPID PANEL W REFLEX MEASURED LDL Routine 02/24/2024 9:05 AM CDT Arteriosclerotic heart disease BASIC METABOLIC PANEL Routine 02/24/2024 9:05 AM CDT Type 2 diabetes mellitus with stage 2 chronic kidney disease, without long-term current use of insulin (HC) SCAN-MRI INTERPRETATION 02/04/2024 12:00 AM CDT SCAN-EYE EXAM 02/03/2024 12:00 AM CDT URINE ALBUMIN TO CREATININE RATIO, RANDOM Routine 01/07/2024 7:45 AM CDT Type 2 diabetes mellitus with microalbuminuria, with long-term current use of insulin (HC) LDL CHOLESTEROL,DIRECT Routine 8:24 AM CDT Hyperlipidemia, unspecified hyperlipidemia type BASIC METABOLIC PANEL Routine 01/04/2024 8:24 AM CDT Hypertension, unspecified type HEMOGLOBIN A1C Routine 01/04/2024 8:24 AM CDT Type 2 diabetes mellitus with microalbuminuria, with long-term current use of insulin (HC) SCAN-EYE EXAM 12/29/2023 12:00 AM CDT XR MAMMO BILAT SCREENING Routine 10/28/2022 8:16 AM CHIEF STRATEGY OFFICER Encounter for screening mammogram for malignant neoplasm of breast COLONOSCOPY SCREENING Routine 12/25/2021 7:59 AM CDT Screening for colon cancer HPV THIN PREP Routine 10/21/2021 11:45 AM CHIEF STRATEGY OFFICER Cervical cancer screening ANTI HIV 1/2 Add On 03/23/2017 3:43 PM CDT Screen for STD (sexually transmitted disease) ACUTE HEPATITIS PANEL Add On 03/23/2017 3:43 PM CDT Screen for STD (sexually transmitted disease) from Last 3 Months or Most Recently Relevant to Health Maintenance Results * CT CARDIAC CORONARY ARTERIES [55035.0] (02/26/2024 9:51 AM CDT) Anatomical Region Laterality Modality HEART Computed Tomogra phy 02/26/2024 9:40 AM CDT Impressions 02/28/2024 5:43 AM CDT ??No significant noncardiovascular findings. ?? Please note that all CT scans at this facility use dose modulation, iterative reconstruction and/or weight-based dosing when appropriate to reduce radiation dose to as low as reasonably achievable. Darrel Barnett M.D. Diagnostic/Musculoskeletal Radiologist [email or web address] / Narrative 02/28/2024 5:43 AM CDT ?[facility] ? Cardiac CT Report ??MRN: ? [id number] ?Name: ? SAMIA ALCARAZ ?: ?Scan Date: ?Accession Number: ? [id number] ?Status: ? Final ? Electronically signed by Misha Hassan 13:46:53 VITALS HEIGHT: 66 in ?(168 cm) WEIGHT: 289 lbs ?(131 kgs) BSA: 2.34 m^2 BMI: 46 kg/m^2 BP: 118 / 80 mmHg BASELINE HR: 68 BPM HEART RHYTHM: Normal Sinus Rhythm FINAL IMPRESSION [place] Coronaries: ?1. Normal epicardial coronary arteries without atherosclerosis. STUDY QUALITY: Study quality is good. CAD-RADS: CAD-RADS Classification 0 (0% stenosis). CALCIUM SCORING: Total coronary artery calcium score 0. DOMINANCE: Right dominant coronary artery system. LM: The LM is normal. LAD: The LAD is normal. D1: The first diagonal is normal. D2: The second diagonal is normal. LCX: The LCx is normal. OM1: The first obtuse marginal is normal. OM2: The second obtuse marginal is normal. RCA: The RCA is normal. RIGHT PDA: The right PDA is normal. RIGHT PLB: The right posterolateral branch is normal. OTHER FINDINGS: Asc 34 x 34 Normal RUTHIE without clot. CALCIUM SCORING TABLE . . ? Number of Lesions Pattern of Calcium Volume Total Score +-------+ + +--------+ + LM ? 0 ? 0 LAD ? 0 ? 0 LCx ? 0 ? 0 RCA ? 0 ? 0 Ramus ? 0 ? 0 '-------+ + +--------+ ' SCAN INFO TEST TYPE: ??Calcium score, Coronary CT Angiography SCANNER REFUSE AND RECYCLING WORKER: ??SIEM[employer] SCANNER MODEL: ??[email or web address] DOSE REDUCTION ALGORITHM: ??Helical with dose modulation PHASE UNITS: ??ms START PHASE: ??280 ms END PHASE: ??350 ms EKG GATED: ??Yes PRE-CONTRAST: ??Yes POST-CONTRAST: ??Yes 3D RECONSTRUCTION: ??Yes GENERAL ?CONTRAST AGENT ?CONTRAST AGENT USED?: ??Yes ?TYPE: ??Omnipaque 350 ?DOSE: ??140 ml ?RATE: ??8.5 ml/s ?ROUTE: ??IV ?ARM: ??Left ?BOLUS TECHNIQUE: ??Biphasic ?SERUM CREATININE: ??0.81 mg/dL ?GFR: ??79.23 ml/min/1.73m^2 ?CREATININE DATE: ?CT CONTRAST REACTION: ??None ?MEDICATION ADMINISTERED DURING SCAN ?TYPE: ??Nitroglycerin, sublingual, B-Blockers ?NITROGLYCERIN, TOTAL DOSE: ??0.8 mg ?B-GERMAN[place] TYPE: ??Oral, IV ?B-GERMAN[place] NAME, ORAL: ??Metoprolol tartrate ?B-[place]MAN[place] NAME, IV: ??Metoprolol tartrate ?B-BLOCKERS, ORAL DOSE: ??100 mg ?B-BLOCKERS, IV DOSE: ??10 mg ?NUMBER OF DOSES: ??2 ?RADIATION DOSE ?DLP: ??502 ?KV: ??120 ?SETUP ?PATIENT TYPE: ??Outpatient ?REASON(S) FOR SCAN: ??Abnormal stress test ?REFERRING PHYSICIAN: ??BROOKE REYES ?TECHNOLOGIST: ??Asa Kauffman BILLING Patient Account ?[id number] ICD10 Codes ?I25.10 Report generated by [employer], a product of [employer] For Patients: As a result of the 21st Century Cures Act, medical imaging exams and procedure reports are released immediately into your electronic medical record. ??You may view this report before your referring provider. ?? If you have questions, please contact your health care provider. OVER-READ ??OVER-READ ??OVER-READ OVER-READ: DETAILED RADIOLOGY EXTRACARDIAC OVER-READ OF CARDIAC CT 02/26/2024 TECHNIQUE: ??Please see cardiology report for technical information. ??140 cc Omnipaque-350 intravenous contrast. ?? This exam is being performed in conjunction with the services provided by the [facility] ([facility]). CLINICAL HISTORY: ??Cardiac over-read. FINDINGS: ??There are areas of minimal atelectasis or scarring within the lungs. ??No consolidation. ??No suspicious nodules within the included portions of the lungs. ??No inferior hilar lymph nodes. ??There are degenerative changes of the spine. ?? Brooke Reyes MD CT * LIPID PANEL W REFLEX MEASURED LDL ([id number]) (02/24/2024 9:05 AM CDT) CHOLESTEROL,TOTAL 101 100 - 199 mg/dL 02/24/2024 5:09 PM CDT [facility] Comment: Cholesterol, Total Reference Ranges Desirable <200 mg/dL Borderline 200-239 mg/dL High >=240 mg/dL TRIGLYCERIDES 81 <150 mg/dL 02/24/2024 5:09 PM CDT [facility] HDL CHOLESTEROL 43 >40 mg/dL 5:09 PM CDT [facility] NON-HDL CHOLESTEROL 58 <145 mg/dl 02/24/2024 5:09 PM CDT [facility] CHOL/HDL RATIO 2.35 <4.50 02/24/2024 5:09 PM CDT [facility] LDL CHOLESTEROL 42 <=130 mg/dL 02/24/2024 5:09 PM CDT [facility] VLDL CHOLESTEROL 16 <=30 mg/dL 02/24/2024 5:09 PM CDT [facility] PROVIDER ORDERED STATUS RANDOM 02/24/2024 5:09 PM CDT [facility] Blood BLOOD SPECIMEN / Unknown Venipuncture / Unknown 02/24/2024 9:05 AM CDT 02/24/2024 9:06 AM CDT Brooke Reyes MD CHEMISTRY [facility] [address] [place] [address], * (ABNORMAL) BASIC METABOLIC PANEL (BMP) [79402.0] (02/24/2024 9:05 AM CDT) Only the most recent of2 resultswithin the time period is included. [facility] Signature SODIUM 141 136 - 145 mmol/L 02/24/2024 5:09 PM CDT [facility] POTASSIUM 3.6 3.5 - 5.1 mmol/L 02/24/2024 5:09 PM CDT [facility] CHLORIDE 102 98 - 107 mmol/L 02/24/2024 5:09 PM T [facility] CO2,TOTAL 30(H) 22 - 29 mmol/L 02/24/2024 5:09 PM CDT [facility] ANION GAP 9 5 - 18 02/24/2024 5:09 PM T [facility] GLUCOSE 86 70 - 99 mg/dL 02/24/2024 5:09 PM T [facility] CALCIUM 9.1 8.6 - 10.0 mg/dL 02/24/2024 5:09 PM T [facility] BUN 16 6 - 20 mg/dL 02/24/2024 5:09 PM T [facility] CREATININE 0.81 0.50 - 0.90 mg/dL 02/24/2024 5:09 PM T [facility] BUN/CREAT RATIO 20 10 - 20 5:09 PM T [facility] eGFR 88(L) >90 mL/min/1.7 3m2 02/24/2024 5:09 PM T [facility] Comment:As of 2021, eG FR is calculated by the CKD-EPI creatinine equation without race adjustment. ??eGFR can be influenced by muscle mass, exercise, and diet. ??The reported eGFR is an estimation only and is only applicable if the renal function is stable. Blood BLOOD SPECIMEN / Unknown Venipuncture / Unknown 02/24/2024 9:05 AM CDT 02/24/2024 9:06 AM CDT Brooke Reyes MD CHEMISTRY [facility] [address] [place] [address], [place] * SCAN-MRI INTERPRETATION (02/04/2024 12:00 AM CDT) Anatomical Region Laterality Modality Other Scanner OTHER * SCAN-EYE EXAM (02/03/2024 12:00 AM CDT) Scanner OTHER * URINE ALBUMIN TO CREATININE RATIO, RANDOM (01/07/2024 7:45 AM CDT) ALB RAND URINE <12.0 mg/L 01/07/2024 7:47 PM CDT [facility] CREATININE,URINE 1.42 g/L 01/07/20 7:47 PM CDT [facility] ALBUMIN TO CREATININE RATIO,RAND UR 01/07/2024 7:47 PM CDT [facility] Comment:Urine Albumin below measurement range, unable to calculate. Urine URINE SPECIMEN / Unknown Non-Blood / Unknown 01/07/2024 7:45 AM CDT 01/07/2024 9:12 AM CDT Narrative [facility] - 01/07/2024 7:47 PM CDT If Albumin to Creatinine Ratio is elevated, consider the following: ? Elevations seen with incipient nephropathy associated ?? with diabetes mellitus or hypertension. Stress, exercise,hematuria, ?? and urinary tract infection may also produce elevated results. If clinically indicated, confirm with ?24 Hour Albumin to Creatinine Ratio. ?? Milagro Noriega DO URINE [facility] [address] [place] [address], [place] * LDL CHOLESTEROL,DIRECT (01/04/2024 8:24 AM CDT) LDL CHOLESTEROL,DI RECT 76 mg/dL 01/04/2024 5:15 PM CDT [facility] PROVIDER ORDERED STATUS RANDOM 01/04/2024 5:15 PM CDT [facility] Blood BLOOD SPECIMEN / Unknown Venipuncture / Unknown 01/04/2024 8:24 AM CDT 01/04/2024 8:25 AM CDT Narrative [facility] - 01/04/2024 5:15 PM CDT Optimal ?<100 mg/dl Near Optimal ?100-129 mg/dl Borderline High ?? 130-159 mg/dl High ?160-189 mg/dl Very High ? >=190 mg/dl Milagro Noriega DO CHEMISTRY Performing Organization Address [facility] Co de Phone Number [facility] [address] [place] [address], * (ABNORMAL) HEMOGLOBIN A1C MONITORING (POCT) (01/04/2024 8:24 AM CDT) [facility] HEMOGLOBIN A1C MONITORING (POCT) 8.5(H) <=6.4 % 01/04/2024 8:35 AM CDT [facility] Blood BLOOD SPECIMEN / Unknown Venipuncture / Unknown 01/04/2024 8:24 AM CDT 01/04/2024 8:25 AM CDT Narrative [facility] - 01/04/2024 8:35 AM CDT ? (<=6.9%) [...] Anemias, Splenectomy ? Milagro Noriega DO CHEMISTRY [facility] [address] [place] [address], * SCAN-EYE EXAM (12/29/2023 12:00 AM CDT) Scanner OTHER * XR MAMMO BILAT SCREENING (10/28/2022 8:16 AM CHIEF STRATEGY OFFICER) Anatomical Region Laterality Modality BREASTS, Breast Left, Breast Right Bilateral Mammography Impressions 10/28/2022 3:36 PM CHIEF STRATEGY OFFICER ??There is no radiographic evidence for malignancy. ??Recommend annual mammograms. MAMMOGRAM ASSESSMENT: ??ACR 1 Negative PATIENTS: You will also receive a letter with your examination results in an easy to read format. ??If you have questions about your results, please contact your referring provider. Narrative 10/28/2022 3:36 PM CHIEF STRATEGY OFFICER For Patients: As a result of the Cures Act, medical imaging exams and procedure reports are released immediately into your electronic medical record. You may view this report before your referring provider. If you have questions, please contact your health care provider. XR MAMMO BILAT SCREENING [[id number]] CLINICAL HISTORY: ??This is an asymptomatic 52 y.o. patient. INDICATION FOR EXAM: Mammogram Screening. TECHNIQUE: CC & MLO views were obtained. ??This study was evaluated with the assistance of Computer-Aided Detection. COMPARISON FILM: Yes 04/03/21 [facility] 11/05/17 [facility] FINDINGS: ??The breasts have scattered areas of fibroglandular density. There are no dominant masses, suspicious micro calcifications or areas of architectural distortion. Milagro Noriega DO MAMMO * COLONOSCOPY (12/25/2021 8:43 AM CDT) 12/25/2021 8:43 AM CDT Narrative Transcriptions Hubert You MD - 12/25/2021 9:24 AM CDT Patient Name: Samia Alcaraz Procedure Date: 12/25/2021 Gender: Female Date [...] 8:43 AM Procedure Code(s): --- Professional --- 39367, Colonoscopy, flexible; diagnostic, including collection of specimen(s) bybrushing or washing, when performed (separateprocedure) Diagnosis Code(s): --- Professional --- Z12.11, Encounter for screening formalignant neoplasm of colon CPT copyright 2020 [employer]. All rights reserved. The codes documented in this report are preliminary and upon auditing coder reviewmay be revised to meet current compliance requirements. Scope In: 9:01:49 AM Scope Withdrawal Time 0 hours 7 minutes 22 seconds Scope Out: 9:17:38 AM Hubert You MD PROCEDURE ORD * HPV HIGH RISK (10/21/2021 11:45 AM CHIEF STRATEGY OFFICER) TYPE 16 Negative Negative 10/23/2021 12:15 PM CHIEF STRATEGY OFFICER [facility] TYPE 18 Negative Negative 10/23/2021 12:15 PM CHIEF STRATEGY OFFICER [facility] OTHER HIGH RISK TYPES Negative Negative 10/23/2021 12:15 PM CHIEF STRATEGY OFFICER [facility] Other (Cervical) Non-Blood / Unknown 10/21/2021 11:45 AM CHIEF STRATEGY OFFICER 10/22/2021 9:38 AM CHIEF STRATEGY OFFICER Narrative [facility] - 10/23/2021 12:15 PM CHIEF STRATEGY OFFICER HPV types 16, 18, 31, 33, 35, 39, 45, 51, 52, 56, 58, 59, 66 and 68 DNA were undetectable or below the pre-set threshold. Methodology: [employer] 4800 HPV Test Milagro Noriega DO MICROBIOLOGY [facility] [address] [place] [address], * ANTI HIV 1/2 (03/23/2017 3:43 PM CDT) HIV-1/HIV-2 ANTIBODY Non-Reacti ve Non-Reacti ve 03/25/2017 3:58 PM CDT [facility] Blood BLOOD SPECIMEN / Unknown Venipuncture / Unknown 03/23/2017 3:43 PM CDT 03/23/2017 3:43 PM CDT Narrative [facility] - 03/25/2017 3:58 PM CDT HIV-1 p24 and HIV-1/HIV-2 Ab not detected Milagro Noriega DO SEND OUTS Performing Organization Address [facility] Co de Phone Number [facility] [address] [place] [address], * ACUTE HEPATITIS PANEL (03/23/2017 3:43 PM CDT) Pathologist [facility] HEPATITIS C ANTIBODY Non-Reactive Non-Reactive 03/25/2017 3:58 PM CDT [facility] IGM ANTI HAV Non-Reactive Non-Reactive 03/25/20 17 3:58 PM CDT [facility] HBSAG Nonreactive Nonreactive 03/25/2017 3:58 PM CDT [facility] IGM ANTI HBC Non-Reactive Non-Reactive 03/25/20 17 3:58 PM CDT [facility] Blood BLOOD SPECIMEN / Unknown Venipuncture / Unknown 03/23/2017 3:43 PM CDT 03/23/2017 3:43 PM CDT Narrative [facility] - 03/25/2017 3:58 PM CDT Anti-HBc IgM not detected. Does not exclude the possibility of exposure to or infection with HBV. Milagro Noriega DO SEND OUTS [facility] [address] [place] [address], from Last 3 Months or Most Recently Relevant to Health Maintenance Advance Directives * Full Code (Latest Code Status on File) Date Activated Date Inactivated Comments 03/20/2016 7:36 AM 03/20/2016 5:18 PM Question Answer Comments Code Status Discussion: Not Discussed Care Teams In Flight Refueling Manager Relationship Specialty Start Date End Date Milagro Noriega DO [address] [place] [address] PCP - General Family Practice 01/21/16 Silvia Guadalupe MD [address] [place] [address] Psychiatry Psychiatry 02/26/21
[2024-03-17 07:21] VITALS: BMI 45.7
[2024-03-17 07:38] VITALS: BP 127/82; PULSE 72; RESP 16; TEMP 36.9; O2SAT 94
[2024-03-17] MEDS: LACTATED RINGERS 1000 ML 1,000 ML 100 ML IV (07:50)
[2024-03-17] MEDS: SODIUM CHLORIDE 0.9 % (FLUSH) 10 ML SYRINGE IVF (07:56)
[2024-03-17] MEDS: CEFAZOLIN 1 GM inj 3 GM IVP (09:26)
--- NOTE | 2024-03-17 09:40 | CRLHL7_ITS ---
For Patients: As a result of the Cures Act, medical imaging exams and procedure reports are released immediately into your electronic medical record. You may view this report before your referring provider. If you have questions, please contact your health care provider. Indication: Screw removal Technique: Three fluoroscopic images of the right ankle. Fluoroscopic time 7.8 seconds. IMPRESSION: Fluoroscopic guidance for removal of syndesmotic screw. Dictated by Steven Muñoz MD @ 03/17/2024 11:25:46 AM (Electronically Signed)
[2024-03-17] MEDS: BUPIVACAINE 0.25% 30 ML 10 ML INJECTION (10:00)
--- NOTE | 2024-03-17 10:03 | P.ORPRC_ITS ---
Procedure Note Date of procedure: 03/17/24 Procedure: PREOPERATIVE DIAGNOSIS: Right ankle fracture ORIF with retained hardware POSTOPERATIVE DIAGNOSIS: Right ankle fracture ORIF with retained hardware SURGEON: Lester Araujo MD SPLICING MACHINE OPERATOR: Jet Vang PA-C NAME OF OPERATION: Hardware removal deep ANESTHESIA: Local ESTIMATED BLOOD LOSS: 1 mL COMPLICATIONS: None SPECIMENS: None DRAINS: None PREOPERATIVE ANTIBIOTICS: Ancef 3 gram INDICATIONS: The patient is a 53-year-old who sustained an ankle fracture. ORIF was completed previously. They present today for elective syndesmotic screw removal. The risks, benefits and expected outcomes were discussed in detail. These included but were not limited to: Infection, bleeding, injury to blood vessel or nerve, venous thromboembolism. All questions were answered to their satisfaction. Use of an oncology physician assistant was necessary throughout the case for patient positioning and safety, soft tissue retraction and closure. PROCEDURE: The patient was placed supine on the operating room table. IV sedation was administered. Local anesthesia was administered. The lower extremity was prepped and draped in the usual sterile fashion. The image intensifier was used to confirm location of the syndesmotic screw. We utilized our previously placed incision and opened it longitudinally. Subcutaneous dissection was bluntly taken to the screw head which was fully exposed. The screw was removed intact, without complication. The image intensifier was used to obtain an AP, mortise and lateral view of the ankle, showing the screw has been removed. The wound was irrigated with normal saline. The oncology physician assistant closed soft skin with a 3-0 nylon. The oncology physician assistant placed a soft dressing. Sponge and needle counts were correct x 2. The patient tolerated the procedure well. There were no apparent complications. They were carefully transferred to the hospital bed and taken to the postanesthesia care unit in satisfactory condition. PLAN: The patient will be discharged to home. They may weightbear as tolerates. Ice, ibuprofen and Tylenol will be used as needed for pain. They will follow up in the office in 2 weeks for a wound check and suture removal.
--- NOTE | 2024-03-17 10:21 | W.ANESCHARGE ---
Anesthesia Charges Start Date/Time Anesthesia Start Date: 03/17/24 Anesthesia Start Time: 09:16 Stop Date/Time Anesthesia Stop Date: 03/17/24 Anesthesia Stop Time: 10:17
[2024-03-17 10:24] VITALS: BP 92/54; PULSE 78; RESP 12; TEMP 36.1; O2SAT 92
[2024-03-17 10:40] VITALS: BP 101/64; PULSE 68; RESP 12; O2SAT 91
[2024-03-17 10:55] VITALS: BP 107/64; PULSE 68; RESP 14; O2SAT 92
== END 2024-03-17 11:27 | disposition home or self-care (01) ==
LOC: OR 06:58
PROVIDERS: PCP Family Medicine; Visit Provider Orthopaedic Surgery
PROC: (CPT 20680; principal; 2024-03-17 09:45)
DX: Z47.2 Encounter for removal of internal fixation device (principal)
CPT/HCPCS: 20680; 01480; 73610; 76000; J0665; J0690; J1100; J2250; J2405; J2704; J3010; J3490; J7120

== ENCOUNTER 2024-10-01 22:20 | Emergency (ER) | payer OTHER, SELFPAY ==
--- OUTSIDE RECORDS SUMMARY | 2024-10-01 22:22 | XMS_ITS | Clinical Summary ---
Author Organization [facility] Address [place], [place] [address] Care Team Providers Care Java Architect Name Role Phone Hari Milagro Ann Primary Care Provider [phone] Silvia Guadalupe MD Unavail able Allergies Active Allergy Reactions Criticality Noted Date Comments Lisinopril Throat Swelling/Closing High 02/24/2023 ?cause mild throat swelling Metformin Diarrhea 01/28/2022 Medications melatonin 5 mg tab Take 1 tablet by mouth at bedtime. 2018 Active blood-glucose meterIndications:Type II diabetes mellitus with complication (HC) Check three times daily. 1 Device 2020 Active fluticasone (50 mcg per actuation) nasal solution (FLONASE)Indications:D ysfunction of left eustachian tube Inhale 2 Sprays to both nostrils once daily. 16 g 3 2021 Active nystatin (MYCOSTATIN) creamIndications:Yeast vaginitis Apply topically to affected area(s) 2 times daily. Until resolved. 90 g 2021 Active betamethasone dipropionate 0.05% (DIPROSONE 0.05% CREAM) 0.05 % creamIndications:Psori asis (a type of skin inflammation) Use 1-2 times daily on psoriasis until improved, then use as needed 60 g 1 2022 Active albuterol HFA (PRO-AIR; VENTOLIN; PROVENTIL) 90 mcg/actuation inhalerIndications:Whe ezing INHALE 1 TO 2 PUFFS BY MOUTH EVERY 4 HOURS NEEDED FOR SHORTNESS OF BREATH OR WHEEZING 6.7 g 2022 Active tolnaftate 1% powder (TINACTIN) 1 % powderIndications:Erendira a pedis of both feet Apply topically to affected area(s) two times daily. 108 g 2023 Active BD Adrienne 2nd Gen Pen Needle 32 gauge x /32Indications:Uncon trolled type 2 diabetes mellitus with hyperglycemia (HC) REMOVE THE 2 COVERS ON THE PEN NEEDLE BEFORE ADMINISTERING INSULIN AND VICTOZA DOSE 200 Each 3 2023 Active famotidine (PEPCID) 20 mg tabletIndications:Uzma roesophageal reflux disease, unspecified whether esophagitis present TAKE 1 TABLET(20 MG) BY MOUTH TWICE DAILY 180 Tablet 3 2023 Active rosuvastatin (CRESTOR) 20 mg tabletIndications:Pure hypercholesterolemia Take 1 Tablet (20 mg) by mouth once daily. 90 Tablet 3 2023 Active Clobetasol Propionate 0.05 % shampooIndications:Pso riasis of scalp APPLY A THIN LAYER ONTO DRY, TO THE AFFECTED AREA(S) SCALP DAILY. LEAVE ON FOR 15 MINUTES BEFORE LATHERING AND RINSING 118 mL 1 2023 Active triamcinolone 0.1 % ointmentIndications:De rmatitis of both ear canals Apply topically to affected area(s) two times daily. 15 g 2023 Active lancetsIndications:Typ e II diabetes mellitus with complication (HC) Check three times daily 300 Each 3 2023 Active cetirizine (ZYRTEC) 10 mg tabletIndications:Coug h, unspecified type TAKE 1 TABLET(10 MG) BY MOUTH EVERY DAY 90 Tablet 2 2023 Active propranolol ER (INDERAL LA) 120 mg Cs24 Sustained-Release capsuleIndications:HTN (hypertension) TAKE 1 CAPSULE(120 MG) BY MOUTH EVERY DAY 90 Capsule 3 2023 Active esomeprazole (NEXIUM) 20 mg capsuleIndications:Gas troesophageal reflux disease, unspecified whether esophagitis present Take 1 Capsule (20 mg) by mouth once daily before a meal. 90 Capsule 3 2023 Active ketoconazole 2 % creamIndications:Tinea pedis of both feet Apply topically to affected area(s) two times daily. 120 g 1 2023 Active valsartan (DIOVAN) 40 mg tabletIndications:Type 2 diabetes mellitus with stage 2 chronic kidney disease, without long-term current use of insulin (HC) Take 1 Tablet (40 mg) by mouth once daily. Due for cardiology appt in December 2024. Call now to schedule. 90 Tablet 1 2023 Active escitalopram oxalate (LEXAPRO) 20 mg tabletIndications:Mode rate recurrent major depression (HC),Generalized anxiety disorder,Obsessive-com pulsive disorder, unspecified type Take 1 Tablet (20 mg) by mouth once daily. 90 Tablet 2023 Active busPIRone (BUSPAR) 15 mg tabletIndications:Mode rate recurrent major depression (HC),Generalized anxiety disorder,Obsessive-com pulsive disorder, unspecified type,Social anxiety disorder Take 1 Tablet (15 mg) by mouth once daily. (15 mg at bedtime) 90 Tablet 2023 Active busPIRone (BUSPAR) 30 mg tabletIndications:Mode rate recurrent major depression (HC),Generalized anxiety disorder,Obsessive-com pulsive disorder, unspecified type,Social anxiety disorder Take 1 Tablet (30 mg) by mouth once daily. (30 mg in the morning) 90 Tablet 2023 Active modafiniL (PROVIGIL) 200 mg tabletIndications:Mode rate recurrent major depression (HC),Hypersomnia Take 0.5-1 Tablets (100-200 mg) by mouth once daily in the morning. 90 Tablet 2023 Active LORazepam (ATIVAN) 0.5 mg tabIndications:Moderat e recurrent major depression (HC),Generalized anxiety disorder,Panic attacks Take 1 Tablet (0.5 mg) by mouth 2 times daily if needed for Anxiety or Sleep. 60 Tablet 2 2023 Active blood sugar diagnostic (NeoChordTouch Verio test strips) stripIndications:Type II diabetes mellitus with complication (HC) USE TO TEST THREE TIMES DAILY 300 Each 3 2023 Active Lantus Solostar U-100 Insulin 100 unit/mL (3 mL) penIndications:Uncontr olled type 2 diabetes mellitus with hyperglycemia (HC) Inject 58 units subcutaneous at bedtime. 15 mL 2023 Active semaglutide (Ozempic) 2 mg/dose (8 mg/3 mL) subcutaneous penIndications:Uncontr olled type 2 diabetes mellitus with hyperglycemia (HC) ADMINISTER 2MG SUBCUTANEOUS ONCE WEEKLY 3 mL 2024 Active blood sugar diagnostic (NeoChordTouch Verio test strips) stripIndications:Type II diabetes mellitus with complication (HC) USE TO TEST THREE TIMES DAILY 300 Each 3 09/15 Discontinued modafiniL (PROVIGIL) 200 mg tabletIndications:Mode rate recurrent major depression (HC),Hypersomnia Take 1 Tablet (200 mg) by mouth once daily in the morning. 90 Tablet 09/12 Discontinued( Reorder (E-cancel not sent)) busPIRone (BUSPAR) 30 mg tabletIndications:Mode rate recurrent major depression (HC),Generalized anxiety disorder,Obsessive-com pulsive disorder, unspecified type,Social anxiety disorder Take 1 Tablet (30 mg) by mouth once daily. (In the morning) 90 Tablet 09/06 Discontinued busPIRone (BUSPAR) 15 mg tabletIndications:Mode rate recurrent major depression (HC),Generalized anxiety disorder,Obsessive-com pulsive disorder, unspecified type,Social anxiety disorder Take 1 Tablet (15 mg) by mouth once daily. (At bedtime) 90 Tablet 09/06 Discontinued LORazepam (ATIVAN) 0.5 mg tabIndications:Moderat e recurrent major depression (HC),Generalized anxiety disorder,Panic attacks TAKE 1 TABLET(0.5 MG) BY MOUTH EVERY DAY NEEDED FOR BREAKTHROUGH ANXIETY 30 Tablet 09/12 Discontinued( *Medication adjustment) Lantus Solostar U-100 Insulin 100 unit/mL (3 mL) penIndications:Uncontr olled type 2 diabetes mellitus with hyperglycemia (HC) Inject 58 units subcutaneous before bedtime. 3 mL 2 09/18 Discontinued escitalopram oxalate (LEXAPRO) 5 mg tabletIndications:Mode rate recurrent major depression (HC),Generalized anxiety disorder,Obsessive-com pulsive disorder, unspecified type,Panic attacks,Social anxiety disorder Take 1 Tablet (5 mg) by mouth once daily. (Total of 15 mg daily) 90 Tablet 09/12 Discontinued( *Medication adjustment) escitalopram oxalate (LEXAPRO) 10 mg tabletIndications:Mode rate recurrent major depression (HC),Generalized anxiety disorder,Obsessive-com pulsive disorder, unspecified type,Panic attacks,Social anxiety disorder Take 1 Tablet (10 mg) by mouth once daily. (Total of 15 mg daily) 90 Tablet 09/12 Discontinued( *Medication adjustment) LORazepam (ATIVAN) 1 mg tabletIndications:Recu rrent insomnia Take 1 Tablet (1 mg) by mouth at bedtime if needed for Sleep. 30 Tablet 1 09/12 Discontinued( *Medication adjustment) valsartan (DIOVAN) 40 mg tabletIndications:Type 2 diabetes mellitus with stage 2 chronic kidney disease, without long-term current use of insulin (HC) Take 1 Tablet (40 mg) by mouth once daily. Follow up with Cardiology in December 2024 180 Tablet 2 09/12 Discontinued semaglutide (Ozempic) 2 mg/dose (8 mg/3 mL) subcutaneous penIndications:Uncontr olled type 2 diabetes mellitus with hyperglycemia (HC) ADMINISTER 2MG SUBCUTANEOUS ONCE WEEKLY 9 mL 09/30 Discontinued busPIRone (BUSPAR) 30 mg tabletIndications:Mode rate recurrent major depression (HC),Generalized anxiety disorder,Obsessive-com pulsive disorder, unspecified type,Social anxiety disorder TAKE 1 TABLET(30 MG) BY MOUTH DAILY IN THE MORNING 90 Tablet 09/12 Discontinued( Reorder (E-cancel not sent)) busPIRone (BUSPAR) 15 mg tabletIndications:Mode rate recurrent major depression (HC),Generalized anxiety disorder,Obsessive-com pulsive disorder, unspecified type,Social anxiety disorder TAKE 1 TABLET(15 MG) BY MOUTH DAILY AT BEDTIME 90 Tablet 09/12 Discontinued( Reorder (E-cancel not sent)) Active Problems Problem Noted Date Diagnosed Date Recurrent insomnia 07/15/2024 Headache, chronic daily 04/16/2023 Obsessive-compulsive disorder 04/16/2023 Type 2 diabetes mellitus wit h microalbuminuria, with long-term current use of insulin 02/25/2023 Hypersomnia 05/13/2021 Moderate recurrent major depression 02/26/2021 Social anxiety disorder 02/26/2021 Panic attacks 02/26/2021 HTN (hypertension) 09/13/2019 Controlled substance agreement signed 11/23/2017 Overview (11/23/2017): Signed: 02/01/15-Dinorah Baxter APRN, BC, [employer] /mf Pap smear for cervical cancer screening 02/27/20 17 Overview (11/22/2021): 02/2017 NIL/HPV+, HPV 16/18 Negative 06/2018 NIL/HPV Negative 09/2021 NIL/HPV Negative PLAN: Pap/HPV due 09/2026 Generalized anxiety disorder 01/25/2013 Encounter for long-term (current) use of other m edications 06/07/2012 TASHA 05/09/2012 AHI-11 05/15/2012 Overview (12/07/2013): Has cpap but does not use Encounter for long-term (current) use of other m edications 03/08/2012 Vitamin D deficiency 10/24/2010 Unspecified hearing loss 10/24/2010 Unspecified hypothyroidism 06/05/2009 Morbid obesity 01/20/2008 Headache(784.0) 12/07/2006 Overview (03/10/2014): Follows with Dr. Estrada Resolved Problems Problem Noted Date Diagnosed Date Resolved Date Cervical high risk HPV (shalom n papillomavirus) test positive 02/26/2017 08/04/2018 Overview (08/04/2018): 02/2017 NIL/HPV+, HPV 16/18 negative. 06/2018 NIL/HPV negative Ingrowing nail 12/26/2008 10/23/2010 Encounters Date Type Department Care Team Description 09/26/2024 Refill [facility] [address] [place] [address] Milagro Noriega, Refill Request (Ozempic) 09/17/2024 Refill [facility] [address] [place] [address] Milagro Noriega, Refill Request (Lantus Solostar U-100 Insulin) 09/15/2024 Refill [facility] [address] [place] [address] Milagro Noriega DO Refill Request (Lantus Solostar U-100 Insulin) 09/14/2024 Telephone [facility] [address] [place] [address] Silvia Guadalupe MD Prior Authorization (modafiniL (PROVIGIL) 200 mg tablet Approved September 15, 2024 to September 15, 2025) 09/14/2024 Refill [facility] [address] [place] [address] Milagro Noriega DO Refill Request (Onetouch Verio Test Strips) 09/12/2024 2:15 PM STAFF NURSE ANESTHETIST Telemedicine [facility] [address] [place] [address] Silvia Guadalupe MD Telehealth ([place]); Medication Management 09/12/2024 Travel 09/10/2024 Refill [facility] [address] [place] [address] Steven Henry MD Refill Request (Valsartan) 09/06/2024 Refill [facility] [address] [place] [address] Silvia Guadalupe MD Refill Request (Buspirone, Buspirone) 08/04/2024 Telephone [facility] [address] [place] [address] Silvia Guadalupe MD Refill Request (Sertraline, denied no longer taking) 08/04/2024 Refill [facility] [address] [place] [address] Milagro Noriega DO Refill Request (Esomeprazole) 07/30/2024 Refill [facility] [address] [place] [address] Milagro Noriega DO Refill Request (Ozempic) 07/23/2024 Refill [facility] [address] [place] [address] Steven Henry MD Refill Request (Valsartan) 07/19/2024 Refill [facility] [address] [place] [address] Silvia Guadalupe MD Refill Request (Escitalopram Oxalate-denied, orders on file) 07/15/2024 2:15 PM CDT Telemedicine [facility] [address] [place] [address] Silvia Guadalupe MD Telehealth ([place]); Medication Management 07/11/2024 9:10 AM CDT Office Visit [facility] [address] [place] [address] Milagro Noriega DO Diabetes; Immunization/Injectio n 07/11/2024 Travel 07/10/2024 Travel 07/08/2024 Refill [facility] [address] [place] [address] Milagro Noriega DO Refill Request (Propranolol Er) from Last 3 Months Immunizations Name Administration Dates Next Due AMB Influenza, IIV3 (Age >=3 years)(Flu Clinic Only) 08/15/2008 COVID-19 VACCINE SPIKEVAX (M ODERNA 50MCG/0.5ML) 12YO+ PFS 07/11/2024,09/07/2023 COVID-19 vaccine (Pfizer-Bio NTech 30mcg/0.3mL) 12YO+ BIVALENT CODY CHEEMA 08/04/2022 COVID-19 vaccine (Pfizer-Bio NTech 30mcg/0.3mL) 12YO+ CHANG-SUCROSE MD ANETTEV 04/28/2022 COVID-19 vaccine (PowerbyProxi-Bio NTech 30mcg/0.3mL) PF, MDV 04/28/2022,10/21/2021,01/31/2021,2020 Hepatitis B (Adult) 11/10/2022,04/28/2022,1992 Hepatitis B (Peds) 01/30/1994 INFLUENZA, IIV3 PF (AGE >= 6 MO) 07/11/2024 Influenza, IIV3 (Age >=3 years) 09/27/20 13,06/07/2012,07/08/2011,2009,09/07/2009,08/15/2008,07/12/2007,1 Influenza, IIV4 06/15/2023, 2,07/01/2021,2019,06/30/2019,07/08/2018,09/22/2017,1 10/05/2015,08/08/2015,07/12/2014 MMR 02/06/1989 Pneumococcal Conj 20-valent (Prevnar 20) 08/04/2022 Pneumococcal Poly,23-Valent (Pneumovax) 07/01/2021 Td (Age >=7 Years) 02/21/2021,09/28/1998 Tdap 10/23/2010 Family History Medical History Relation Name Comments Arthritis Father 1990 Heart Disease Father Heart attack Father Anxiety disorder Mother Cancer-breast Other Mat. 2nd Cousi n Other Other GRANDPARENTS HX POSITIVE FOR STROKE,CANCER,DEPRESSION No Known Problems Sister 1 No Known Problems Sister 2 No Known Problems Sister 3 Cancer-ovarian No Family History Relation Name Status [...] drink = 0.6 oz pur e alcohol) [facility] Utilities Answer Date Recorded Do you have trouble paying f or utilities (for example, heat, electricity, water, phone)? Yes 07/11/2024 PHQ-2 Answer Date Recorded PHQ-2 TOTAL SCORE 4 09/12/2024 Social Connections Answer Date Recorded Do you often feel lonely or isolated from those around you? 0 07/11/2024 Alcohol Use Answer Date Recorded How often do you have a drink containing alcohol ? 2 10/21/2021 How many drinks containing a lcohol do you have on a typical day when you are drinking? 0 10/21/2021 How often do you have five or more drinks on one occasion? 0 10/21/2021 Financial Resource Strain Answer Date R ecorded Difficulty of Paying Living Expenses 3 07/11/2024 Difficulty of Paying Living Expenses Not on file 07/11/2024 Food Insecurity Answer Date Recorded Do you worry your food will run out before you are able to buy more? 1 07/11/2024 Transportation Needs Answer Date Record ed Does lack of transportation keep you from medica l appointments? 1 07/11/2024 Does lack of transportation keep you from work, meetings or getting things that you need? 1 07/11/2024 Housing Stability Answer Date Recorded What is your housing situation today? 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 Not on file Not on file Not on f ile Obstetrics History Para Term AB IAB SAB Ectopic Multiple Livin g Live Births 2 1 1 0 1 1 0 0 0 1 1 Date Outcome GA Total Labor Labor/2nd/3rd Weight Sex Type Anes PTL Maya A1 A5 Name Clin IAB 2005 Term C-Sec tion Living Last Filed Vital Signs Vital Sign Reading Time Taken Comments Blood Pressure 117/77 07/11/2024 9:25 AM CDT Pulse 72 07/11/2024 9:25 AM CDT Temperature 36.4 C (97.5 F) 03/08/2024 10:17 AM CDT Respiratory Rate 16 03/08/2024 10:17 AM CDT Oxygen Saturation 96% 07/11/2024 9:25 AM CDT Inhaled Oxygen Concentration - - Weight 126.6 kg (279 lb) 07/11/2024 9:25 AM CDT Height 169.2 cm (5' 6.61) 03/08/2024 10:17 AM C DT Body Mass Index 44.21 03/08/2024 10:17 AM CDT Plan of Treatment Upcoming Encounters Date Type Department Care Team (Late st Contact Info) Description 10/13/2024 9:10 AM STAFF NURSE ANESTHETIST Office Visit [facility] [address] [place] [address] Milagro Noriega DO [address] [place] [address] 12/05/2024 2:15 PM CDT Telemedicine [facility] [address] [place], [place] [id number] Silvia Guadalupe MD [address] [address] Health Maintenance Due Date Last Done Comments Zoster (shingles) series for age 50+ (1 of 2) 2022 BMI (ht and wt on same day) for age 18+ 03/08/2025 03/08/2024, 02/12/2024, 10/27/2023, Additional history exists Mammogram for age 45-75 06/07/2025 06/07/20, 10/28/2022, 04/03/2021, Additional history exists Depression screening for age 12+ 09/14/2025 09/14/2024, 09/14/2024, 09/12/2024, Additional history exists Pap test for age 21-65 10/21/2026 , 10/21/2021, 07/21/2018, Additional history exists Lipids for age 45-75 02/23/2029 02/24/2024, 01/04/2024, 11/10/2022, Additional history exists Tetanus booster 02/21/2031 02/21/2021, 09/29, 09/28/1998 Colonoscopy through age 75 12/26/203112/25, 12/25/2021, 12/25/2021 Tdap Completed 10/23/2010 HIV for age 15-65 Completed 03/23/2017, 07/13/2007 Hepatitis C screening for ag e 18-79 Completed 03/23/2017 Pneumococcal series for age 50+ Completed , 07/01/2021 Hepatitis B series for Diabetes Completed 11/10/2022, 04/28/2022, 01/30/1994, Additional history exists COVID-19 vaccine series Completed 07/11/20, 09/07/2023, 08/04/2022, Additional history exists Influenza for age 50-64 Completed 07/11/20, 06/15/2023, 08/04/2022, Additional history exists Medical Devices Implanted Type Area Poundmaster Device Identifier Shelf Expiration Date Model / Serial / Lot [id number] - [id number] Implanted:Qty: 2 on 03/20/2016 by Jamal Walden MD at [facility] Bilateral: Ear Medtronic 07/04/2017 [id number] / / [id number] Description:Sam T-tube ear tubes Procedures Procedure Name Priority Date/Time Associated Diagnosis Comments HEMOGLOBIN A1C MONITORING (POCT) Routine 07/11/2024 9:06 AM CDT Type II diabetes mellitus with complication (HC) XR MAMMO BILAT SCREENING Routine 06/07/2024 9:21 AM CDT Encounter for screening mammogram for malignant neoplasm of breast LIPID PANEL W REFLEX MEASURED LDL Routine 02/24/2024 9:05 AM CDT Arteriosclerotic heart disease COLONOSCOPY SCREENING Routine 12/25/2021 7:59 AM CDT Screening for colon cancer HPV HIGH RISK Routine 10/21/2021 11:45 AM STAFF NURSE ANESTHETIST Cervical cancer screening ANTI HIV 1/2 Add On 03/23/2017 3:43 PM CDT Screen for STD (sexually transmitted disease) ACUTE HEPATITIS PANEL Add On 03/23/2017 3:43 PM CDT Screen for STD (sexually transmitted disease) from Last 3 Months or Most Recently Relevant to Health Maintenance Results * HEMOGLOBIN A1C MONITORING (POCT) (07/11/2024 9:06 AM CDT) POC HEMOGLOBIN A1C 5.9 <6.0 % OF TOTAL HGB [facility] Comment: Any point of care results exhibiting inconsistency with the patient's clinical status should be repeated using a different testing method. Blood BLOOD SPECIMEN / Unknown 07/11/2024 9:06 AM CDT 07/11/2024 9:08 AM CDT us Milagro Noriega DO CHEMISTRY Final Resu lt [facility] [address] [place] [address], [facility] [address] [place] [address] * XR MAMMO BILAT SCREENING (06/07/2024 9:21 AM CDT) Anatomical Region Laterality Modality BREASTS, Breast Left, Breast Right Bilateral Mammography Impressions 06/07/2024 1:35 PM CDT There is no radiographic evidence for malignancy. Recommend annual mammograms. MAMMOGRAM ASSESSMENT: ACR 1 Negative PATIENTS: You will also receive a letter with your examination results in an easy to read format. If you have questions about your results, please contact your referring provider. Narrative 06/07/2024 1:35 PM CDT For Patients: As a result of the Century Cures Act, medical imaging exams and procedure reports are released immediately into your electronic medical record. You may view this report before your referring provider. If you have questions, please contact your health care provider. XR MAMMO BILAT SCREENING [[id number]] CLINICAL HISTORY: This is an asymptomatic 54 y.o. patient. INDICATION FOR EXAM: Mammogram Screening. TECHNIQUE: CC & MLO views were obtained. This study was evaluated with the assistance of Computer-Aided Detection. COMPARISON FILM: Yes 10/28/22 Electronifie 04/03/21 [facility] FINDINGS: There are scattered areas of fibroglandular density. There are no dominant masses, suspicious micro calcifications or areas of architectural distortion. us Milagro Noriega DO MAMMO Final Resu lt * LIPID PANEL W REFLEX MEASURED LDL ([id number]) (02/24/2024 9:05 AM CDT) CHOLESTEROL,TOTAL 101 100 - 199 mg/dL 02/24/2024 5:09 PM CDT [facility] Comment: Cholesterol, Total Reference Ranges Desirable <200 mg/dL Borderline 200-239 mg/dL High >=240 mg/dL TRIGLYCERIDES 81 <150 mg/dL 02/24/2024 5:09 PM CDT [facility] HDL CHOLESTEROL 43 >40 mg/dL 5:09 PM CDT [facility] NON-HDL CHOLESTEROL 58 <145 mg/dl 02/24/2024 5:09 PM CDT [facility] CHOL/HDL RATIO 2.35 <4.50 02/24/2024 5:09 PM CDT [facility] LDL CHOLESTEROL 42 <=130 mg/dL 02/24/2024 5:09 PM CDT [facility] VLDL CHOLESTEROL 16 <=30 mg/dL 02/24/2024 5:09 PM CDT [facility] PROVIDER ORDERED STATUS RANDOM 02/24/2024 5:09 PM CDT [facility] Blood BLOOD SPECIMEN / Unknown Venipuncture / Unknown 02/24/2024 9:05 AM CDT 02/24/2024 9:06 AM CDT us Steven Henry MD CHEMISTRY Final Result [facility] [address] [place] [address], * COLONOSCOPY (12/25/2021 8:43 AM CDT) 12/25/2021 8:43 AM CDT Narrative Transcriptions Hubert You MD - 12/25/2021 9:24 AM CDT Patient Name: Mary Ellen Alcaraz Procedure Date: 12/25/2021 Gender: Female Date of : 1970 Admit Type: Outpatient Procedure: Colonoscopy Proceduralist: Hubert You MD , Tatiana Goldman, RN (Nurse) Referring MD: Milagro Noriega Indications/Pre-Op [...] 8:43 AM Procedure Code(s): --- Professional --- 44600, Colonoscopy, flexible; diagnostic, including collection of specimen(s) bybrushing or washing, when performed (separateprocedure) Diagnosis Code(s): --- Professional --- Z12.11, Encounter for screening formalignant neoplasm of colon CPT copyright 2020 [employer]. All rights reserved. The codes documented in this report are preliminary and upon fruit loader reviewmay be revised to meet current compliance requirements. Scope In: 9:01:49 AM Scope Withdrawal Time 0 hours 7 minutes 22 seconds Scope Out: 9:17:38 AM us Hubert You MD PROCEDURE ORD Final Res ult * HPV HIGH RISK (10/21/2021 11:45 AM STAFF NURSE ANESTHETIST) TYPE 16 Negative Negative 10/23/2021 12:15 PM STAFF NURSE ANESTHETIST [facility] TYPE 18 Negative Negative 10/23/2021 12:15 PM STAFF NURSE ANESTHETIST [facility] OTHER HIGH RISK TYPES Negative Negative 10/23/2021 12:15 PM STAFF NURSE ANESTHETIST [facility] Other (Cervical) Non-Blood / Unknown 10/21/2021 11:45 AM STAFF NURSE ANESTHETIST 10/22/2021 9:38 AM STAFF NURSE ANESTHETIST Narrative [facility] - 10/23/2021 12:15 PM STAFF NURSE ANESTHETIST HPV types 16, 18, 31, 33, 35, 39, 45, 51, 52, 56, 58, 59, 66 and 68 DNA were undetectable or below the pre-set threshold. Methodology: [place] 4800 HPV Test [facility] Haydee Noriega MICROBIOLOGY Final Resu lt Performing Organization Address City/[facility]/ZIP Co de Phone Number [facility] LABORATORY [address] [place] [address], * ANTI HIV 1/2 (03/23/2017 3:43 PM CDT) HIV-1/HIV-2 ANTIBODY Non-Reacti ve Non-Reacti ve 03/25/2017 3:58 PM CDT [facility] Blood BLOOD SPECIMEN / Unknown Venipuncture / Unknown 03/23/2017 3:43 PM CDT 03/23/2017 3:43 PM CDT Narrative [facility] - 03/25/2017 3:58 PM CDT HIV-1 p24 and HIV-1/HIV-2 Ab not detected [facility] SEND OUTS Final Resu lt Performing Organization Address City/[facility]/ZIP Co de Phone Number [facility] [address] [place] [address], * ACUTE HEPATITIS PANEL (03/23/2017 3:43 PM CDT) HEPATITIS C ANTIBODY Non-Reactive Non-Reactive 03/25/2017 3:58 PM CDT [facility] IGM ANTI HAV Non-Reactive Non-Reactive 03/25/20 17 3:58 PM CDT [facility] HBSAG Nonreactive Nonreactive 03/25/2017 3:58 PM CDT [facility] IGM ANTI HBC Non-Reactive Non-Reactive 03/25/20 17 3:58 PM CDT [facility] Blood BLOOD SPECIMEN / Unknown Venipuncture / Unknown 03/23/2017 3:43 PM CDT 03/23/2017 3:43 PM CDT Narrative [facility] - 03/25/2017 3:58 PM CDT Anti-HBc IgM not detected. Does not exclude the possibility of exposure to or infection with HBV. Milagro Noriega DO SEND OUTS Final Resu lt [facility] [address] [place] [address], [place] from Last 3 Months or Most Recently Relevant to Health Maintenance Insurance MEDICARE PART A HB ONLY [facility] * Guarantor: [employer] [employer] Account Type Relation to Patient Date of Phone Billing Address Contract 2004 [address] [place] [id number] Advance Directives * Full Code (Latest Code Status on File) Date Activated Date Inactivated Comments 03/20/2016 7:36 AM 03/20/2016 5:18 PM Question Answer Comments Code Status Discussion: Not Discussed Care Teams Java Architect Relationship Specialty Start Date End Date Milagro Noriega DO [address] [place] [address] [address] PCP - General Family Practice 01/21/16 Silvia Guadalupe MD [address] [facility] [address] [address] Psychiatry Psychiatry 02/26/21
--- OUTSIDE RECORDS SUMMARY | 2024-10-01 22:22 | XMS_ITS ---
Author Organization Unknown Medications Medication Instructions Effective Dates (start - stop) Status triamcinolone acetonide 0.00 1 MG/MG Topical Ointment - Completed 3 ML insulin glargine 100 UN T/ML Pen Injector [Lantus] - Completed - - Compl eted 24 HR desvenlafaxine succina te 25 MG Extended Release Oral Tablet - Compl eted lorazepam 0.5 MG Oral Tablet [id number] 0:00:00Z - Completed modafinil 200 MG Oral Tablet [id number] 0:00:00Z - Completed - - Compl eted 24 HR propranolol hydrochlor brenda 120 MG Extended Release Oral Capsule - Completed lorazepam 0.5 MG Oral Tablet [id number] 0:00:00Z - Completed 3 ML insulin glargine 100 UN T/ML Pen Injector [Lantus] - Completed 24 HR propranolol hydrochlor brenda 120 MG Extended Release Oral Capsule - Completed cetirizine hydrochloride 10 MG Oral Tablet - Completed cetirizine hydrochloride 10 MG Oral Tablet - Completed modafinil 200 MG Oral Tablet [id number] 0:00:00Z - Completed lorazepam 0.5 MG Oral Tablet [id number] 0:00:00Z - Completed rosuvastatin calcium 20 MG O ral Tablet - Completed - - Compl eted - - Compl eted - - Compl eted buspirone hydrochloride 15 M G Oral Tablet - Completed esomeprazole 40 MG Delayed R elease Oral Capsule - Completed modafinil 200 MG Oral Tablet [id number] 0:00:00Z - Completed 24 HR propranolol hydrochlor brenda 120 MG Extended Release Oral Capsule - Completed cetirizine hydrochloride 10 MG Oral Tablet - Completed 3 ML insulin glargine 100 UN T/ML Pen Injector [Lantus] - Completed - - Compl eted lorazepam 0.5 MG Oral Tablet [id number] 0:00:00Z - Completed 3 ML liraglutide 6 MG/ML Pen Injector [Victoza] - Completed lorazepam 0.5 MG Oral Tablet [id number] 0:00:00Z - Completed cetirizine hydrochloride 10 MG Oral Tablet - Completed - - Compl eted - - Compl eted 24 HR desvenlafaxine succina te 25 MG Extended Release Oral Tablet - Compl eted 24 HR propranolol hydrochlor brenda 120 MG Extended Release Oral Capsule - Completed famotidine 20 MG Oral Tablet [id number] 0:00:00Z - Completed cetirizine hydrochloride 10 MG Oral Tablet - Completed - - Compl eted esomeprazole 40 MG Delayed R elease Oral Capsule - Completed sertraline 100 MG Oral Tablet 2024-02-06 00:00:00Z - Completed famotidine 20 MG Oral Tablet [id number] 0:00:00Z - Completed 24 HR desvenlafaxine succina te 50 MG Extended Release Oral Tablet - Compl eted buspirone hydrochloride 30 M G Oral Tablet - Completed - - Compl eted buspirone hydrochloride 30 M G Oral Tablet - Completed buspirone hydrochloride 15 M G Oral Tablet - Completed buspirone hydrochloride 30 M G Oral Tablet - Completed famotidine 20 MG Oral Tablet [id number] 0:00:00Z - Completed famotidine 20 MG Oral Tablet [id number] 0:00:00Z - Completed - - Compl eted 3 ML liraglutide 6 MG/ML Pen Injector [Victoza] - Completed 24 HR propranolol hydrochlor brenda 120 MG Extended Release Oral Capsule - Completed oxycodone hydrochloride 5 MG Oral Tablet - Completed acetaminophen 325 MG / oxyco done hydrochloride 5 MG Oral Tablet - Comple remigio esomeprazole 40 MG Delayed R elease Oral Capsule - Completed - - Compl eted 3 ML liraglutide 6 MG/ML Pen Injector [Victoza] - Completed 24 HR propranolol hydrochlor brenda 120 MG Extended Release Oral Capsule - Completed - - Compl eted 3 ML insulin glargine 100 UN T/ML Pen Injector [Lantus] - Completed 3 ML insulin glargine 100 UN T/ML Pen Injector [Lantus] - Completed buspirone hydrochloride 15 M G Oral Tablet - Completed rosuvastatin calcium 20 MG O ral Tablet - Completed - - Compl eted clobetasol propionate 0.5 MG /ML Medicated Shampoo - Completed lorazepam 0.5 MG Oral Tablet [id number] 0:00:00Z - Completed buspirone hydrochloride 30 M G Oral Tablet - Completed 3 ML insulin glargine 100 UN T/ML Pen Injector [Lantus] - Completed 24 HR propranolol hydrochlor brenda 120 MG Extended Release Oral Capsule - Completed 3 ML liraglutide 6 MG/ML Pen Injector [Victoza] - Completed ketoconazole 20 MG/ML Topica l Cream - Completed cetirizine hydrochloride 10 MG Oral Tablet - Completed esomeprazole 40 MG Delayed R elease Oral Capsule - Completed cyclobenzaprine hydrochlorid e 5 MG Oral Tablet - Completed famotidine 20 MG Oral Tablet [id number] 0:00:00Z - Completed 3 ML liraglutide 6 MG/ML Pen Injector [Victoza] - Completed valsartan 40 MG Oral Tablet [id number] :00:00Z - Completed famotidine 20 MG Oral Tablet [id number] 0:00:00Z - Completed 3 ML liraglutide 6 MG/ML Pen Injector [Victoza] - Completed famotidine 20 MG Oral Tablet [id number] 0:00:00Z - Completed clobetasol propionate 0.5 MG /ML Medicated Shampoo - Completed - - Compl eted - - Compl eted modafinil 200 MG Oral Tablet [id number] 0:00:00Z - Completed 24 HR propranolol hydrochlor brenda 120 MG Extended Release Oral Capsule - Completed - - Compl eted buspirone hydrochloride 15 M G Oral Tablet - Completed sertraline 100 MG Oral Tablet 2023-08-11 00:00:00Z - Completed - - Compl eted sertraline 100 MG Oral Tablet 2023-12-01 00:00:00Z - Completed sertraline 50 MG Oral Tablet [id number] 0:00:00Z - Completed cetirizine hydrochloride 10 MG Oral Tablet - Completed cetirizine hydrochloride 10 MG Oral Tablet - Completed famotidine 20 MG Oral Tablet [id number] 0:00:00Z - Completed - - Compl eted famotidine 20 MG Oral Tablet [id number] 0:00:00Z - Completed 3 ML liraglutide 6 MG/ML Pen Injector [Victoza] - Completed sertraline 25 MG Oral Tablet [id number] 0:00:00Z - Completed 24 HR desvenlafaxine succina te 50 MG Extended Release Oral Tablet - Compl eted - - Compl eted - - Compl eted famotidine 20 MG Oral Tablet [id number] 0:00:00Z - Completed clobetasol propionate 0.5 MG /ML Medicated Shampoo - Completed modafinil 200 MG Oral Tablet [id number] 0:00:00Z - Completed 3 ML insulin glargine 100 UN T/ML Pen Injector [Lantus] - Completed - - Compl eted - - Compl eted buspirone hydrochloride 15 M G Oral Tablet - Completed modafinil 200 MG Oral Tablet [id number] 0:00:00Z - Completed - - Compl eted modafinil 200 MG Oral Tablet [id number] 0:00:00Z - Completed diazepam 5 MG Oral Tablet [id number]:0 0:00Z - Completed famotidine 20 MG Oral Tablet [id number] 0:00:00Z - Completed cetirizine hydrochloride 10 MG Oral Tablet - Completed 3 ML insulin glargine 100 UN T/ML Pen Injector [Lantus] - Completed clobetasol propionate 0.5 MG /ML Medicated Shampoo - Completed - - Compl eted esomeprazole 40 MG Delayed R elease Oral Capsule - Completed valsartan 40 MG Oral Tablet [id number] :00:00Z - Completed cetirizine hydrochloride 10 MG Oral Tablet - Completed Patient Care team information Name Category Status Period Participants - - Proposed period not known -
--- OUTSIDE RECORDS SUMMARY | 2024-10-01 22:22 | XMS_ITS | Continuity of Care Document ---
Author Name NwRONNIEN [facility] Address Unknown Organization Unknown Address Unknown Procedures FILTER APPLIED:Only known Procedures with Onset Date within the last 5 years Procedure Date Procedure Provider Additional Inform ation Status MRI JNT OF LWR EXTRE W/O DYE (71101) Completed MANUAL THERAPY 1/> REGIONS (68428) Completed PT EVAL LOW COMPLEX 20 MIN (85932) Completed THERAPEUTIC EXERCISES (21544) Completed FLUOROSCOPY <1 HR PHYS/QHP (45461) Completed GLUCOSE BLOOD TEST (26860) Completed ECHO GUIDE FOR BIOPSY (38431) Completed OPEN TREATMENT OF BIMALLEOLAR ANKLE FRACTURE, INCLUDES INTERNAL FIXATION, WHEN PERFORMED (94037) Completed PT EVAL LOW COMPLEX 20 MIN (40789) Completed GAIT TRAINING THERAPY (35925) Completed ANESTH LOWER LEG BONE SURG (71620) Completed X-RAY EXAM OF ANKLE (50660) Completed X-RAY EXAM OF ANKLE (44117) Completed THER/PROPH/DIAG INJ IV PUSH (61796) Completed MEASURE BLOOD OXYGEN LEVEL (89204) Completed EMERGENCY DEPT VISIT MOD MDM (61103) Completed TX/PRO/DX INJ NEW DRUG ADDON (94276) Completed US EXAM OF HEAD AND NECK (04328) Completed Encounters FILTER APPLIED:Only known Encounters with Admission Date within the last 5 years Encounter Location Admission Discharge Billing Code Catering Manager [facility]
[2024-10-01 22:29] VITALS: BP 118/79; PULSE 78; RESP 16; TEMP 36.9; O2SAT 97; BMI 46.0
--- NOTE | 2024-10-01 22:47 | ED_ITS ---
HPI - Extremity Injury (Lower) General Time Seen by Provider: 22:47 Date Seen: 10/01/24 Chief Complaint: Extremity Pain/Injury, Lower Stated Complaint: Ankle pain Time Seen by Provider: 10/01/24 22:47 Source: patient and RN notes reviewed Mode of arrival: ambulatory Limitations: no limitations History of Present Illness HPI Narrative: Mary Ellen is a pleasant 54-year-old female with history of right ankle ORIF approximately 1 year ago who comes to the emergency room for evaluation regarding ankle pain. This started approximately 2 hours ago. It was not associated with any particular injury that she can think of. Since that time the pain has been constant and she comes in for evaluation. Related Data Home Medications ?Medication ?Instructions ?Recorded ?Confirmed betamethasone dipropionate 0.05 % 1 topical BID PRN 06/06/22 03/28/24 lotion buspirone 15 mg tablet 15 mg PO BID 06/06/22 03/28/24 esomeprazole magnesium 20 mg 40 mg PO DAILY 06/06/22 03/28/24 capsule,delayed release famotidine 20 mg tablet (Pepcid) 20 mg PO BID 06/06/22 03/28/24 ketoconazole 1 % shampoo 1 topical 06/06/22 03/28/24 lorazepam 0.5 mg tablet 0.5 mg PO BID PRN 06/06/22 03/28/24 melatonin 5 mg capsule 5 mg PO DAILY PRN 06/06/22 03/28/24 liraglutide 0.6 mg/0.1 mL (18 mg/3 1.8 mg subcut QDAY 08/05/22 03/28/24 mL) subcutaneous pen injector (Victoza 3-Jose E) propranolol 120 mg capsule,24 120 mg PO QDAY 10/24/22 03/28/24 hr,extended release insulin glargine 100 unit/mL (3 16 unit subcut QPM 01/02/23 03/28/24 mL) subcutaneous pen (Lantus Solostar U-100 Insulin) nystatin 100,000 unit/gram topical 1 applic topical BID 01/02/23 03/28/24 cream albuterol sulfate 90 mcg/actuation 1 - 2 puff inhalation Q4H PRN 10/28/23 03/28/24 aerosol inhaler wheezing buspirone 30 mg tablet 30 mg PO DAILY 10/28/23 03/28/24 cetirizine 10 mg tablet 10 mg DAILY 10/28/23 03/28/24 clobetasol 0.05 % shampoo topical 10/28/23 03/28/24 fluticasone propionate 50 2 spray intranasal DAILY 10/28/23 03/28/24 mcg/actuation nasal spray,suspension (24 Hour Allergy Relief) rosuvastatin 20 mg tablet 20 mg PO QPM 02/01/24 03/28/24 sertraline 100 mg tablet 100 mg PO BID 02/01/24 03/28/24 valsartan 40 mg tablet 20 mg PO 02/01/24 03/28/24 modafinil 200 mg tablet 200 mg PO DAILY 03/28/24 03/28/24 Previous Rx's ?Medication ?Instructions ?Recorded clobetasol 0.05 % topical ointment 1 applic topical QHS #15 grams 08/12/22 Allergies Allergy/AdvReac Type Severity Reaction Status Date / Time lisinopril Allergy Swelling Verified 03/28/24 09:34 of Lip/Tongue/Throat metformin AdvReac Diarrhea Verified 03/28/24 09:34 Review of Systems Status of ROS: Reports: 6 or more systems reviewed and unremarkable except as noted in History and below [facility] Medical History Hypersomnia ?G47.10 - Hypersomnia, unspecified (ICD-10) Unspecified hearing loss ?H91.90 - Unspecified hearing loss, unspecified ear (ICD-10) BMI 40.0-44.9, adult ?Z68.41 - Body mass index [BMI] 40.0-44.9, adult (ICD-10) Normal colonoscopy Stress incontinence ?N39.3 - Stress incontinence (female) (male) (ICD-10) 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) GERD (gastroesophageal reflux disease) ?K21.9 - Gastro-esophageal reflux disease without esophagitis (ICD-10) High blood cholesterol ?E78.00 - Pure hypercholesterolemia, unspecified (ICD-10) Type 2 diabetes mellitus ?E11.9 - Type 2 diabetes mellitus without complications (ICD-10) OCD (obsessive compulsive disorder) ?F42.9 - Obsessive-compulsive disorder, unspecified (ICD-10) Recurrent depression ?F33.9 - Major depressive disorder, recurrent, unspecified (ICD-10) Hypertension ?I10 - Essential (primary) hypertension (ICD-10) Generalized anxiety disorder ?F41.1 - Generalized anxiety disorder (ICD-10) Obstructive sleep apnea ?G47.33 - Obstructive sleep apnea (adult) (pediatric) (ICD-10) Vitamin D deficiency ?E55.9 - Vitamin D deficiency, unspecified (ICD-10) Hypothyroidism ?E03.9 - Hypothyroidism, unspecified (ICD-10) Surgical History Status post hardware removal ?Z98.890 - Other specified postprocedural states (ICD-10) S/P ORIF (open reduction internal fixation) fracture (10/29/23) ?Z98.890 - Other specified postprocedural states (ICD-10) ?Z87.81 - Personal history of (healed) traumatic fracture (ICD-10) Hx laparoscopic cholecystectomy ?Z90.49 - Acquired absence of other specified parts of digestive tract (ICD- 10) H/O lymph node excision ?Z98.890 - Other specified postprocedural states (ICD-10) H/O esophagogastroduodenoscopy ?Z98.890 - Other specified postprocedural states (ICD-10) History of delivery ?Z98.891 - History of uterine scar from previous surgery (ICD-10) Family History Other Anxiety disorder Coronary artery disease Stroke Social History Narrative: 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 She doesn't smoke, drink alcohol, [] Smoking Status: Never smoker Do you use any of these nicotine containing products: None Second hand tobacco smoke exposure: No How often do you have a drink containing alcohol: never How often do you have six or more drinks on one occasion: Never AUDIT-C Alcohol total score: 0 Non-prescribed substance use: denies use Caffeine: No Are you using contraception or practicing any form of control: Yes (IUD) service: No Exam Narrative: Exam Narrative: Alert and oriented. In discomfort. Somewhat distractible. No respiratory distress. Smells strongly of tobacco in the exam room. Examination of the right ankle shows healed surgical wounds on the anterior and lateral aspect of the ankle. Patient has definite edema around the lateral ligaments anterior to the malleolus. Some soft tissue swelling as well anterior to the medial malleolus. No erythema or warmth to the touch. Very mild discomfort with palpation of the Achilles insertion. No erythema noted. Const: Vital Signs, click to edit/add: Vital Signs - 24 hr 10/01/24 22:29 Temperature 98.4 F Pulse Rate [Pulse Oximeter] 78 Respiratory Rate 16 [facility] 118/79 Pulse Oximetry 97 Oxygen Delivery Me thod Room Air Course Course ED Course: Differential diagnosis includes occult fracture, sprain, overuse injury, hardware failure. Will order x-ray of the right ankle. There is no evidence of erythema or warmth to the touch to indicate gout. Vital Signs Vital signs: Initial Vital Signs Temperature 98.4 F 10/01/24 22:29 Temperature Source Temporal Artery Scan 10/01/24 22:29 Pulse Rate 78 10/01/24 22:29 Respiratory Rate 16 10/01/24 22:29 Blood Pressure 118/79 10/01/24 22:29 Blood Pressure Mean 92 10/01/24 22:29 Blood Pressure Position Sitting 10/01/24 22:29 Pulse Oximetry 97 10/01/24 22:29 Oxygen Delivery Method Room Air 10/01/24 22:29 Vital Signs Temperature 98.4 F 10/01/24 22:29 Pulse Rate 78 10/01/24 22:29 Respiratory Rate 16 10/01/24 22:29 Blood Pressure 118/79 10/01/24 22:29 Pulse Oximetry 97 10/01/24 22:29 Oxygen Delivery Method Room Air 10/01/24 22:29 Temperature 98.4 F 10/01/24 22:29 Pulse Rate 78 10/01/24 22:29 Respiratory Rate 16 10/01/24 22:29 Blood Pressure 118/79 10/01/24 22:29 Pulse Oximetry 97 10/01/24 22:29 Oxygen Delivery Method Room Air 10/01/24 22:29 MDM - Extremity Injury (Lower) MDM Narrative Medical decision making narrative: 1. Right ankle pain-fortunately no evidence of hardware failure noted on x-ray. Patient clearly has a swelling on the right versus the left. She has some mild tenderness at the Achilles insertion. I will place her in a cam walker at this time. She was receptive to having Toradol 30 mg IM in the ED. Will continue with anti-inflammatories at home with either ibuprofen 600 mg every 8 hours as needed or Aleve 1 tablet every 12 hours. Patient is to follow up with her orthopedic surgeon if she still has ongoing discomfort. 2. Disposition-home at this time. Return for worsening symptoms and as needed. Medical Records Attestation: I reviewed the patient's medical records. Imaging Data Right ankle x-ray: Attestation: I have reviewed the pertinent imaging results. My impression: I do not note any obvious fracture Radiologist's impression: gain noted are postsurgical changes from open reduction internal fixation with an intra medullary fibular ryder and 2 transversely oriented screws distally. A previously identified screw traversing the tibia and fibula has been removed. There is a lucent pin tract. There is soft tissue swelling about the ankle particularly laterally but also medially. There is no acute fracture, dislocation, and no obvious hardware failure. The tibiotalar joint space is intact. IMPRESSION: 1. Soft tissue swelling. 2. No acute fracture or dislocation. Discharge Plan Discharge Clinical Impression: Acute right ankle pain Patient Disposition: Home, Self-Care Condition: Improved Additional Instructions: Use cam walker for walking support over the next 72 hours. If you still have discomfort please follow-up with [facility] for evaluation. For discomfort you may use ibuprofen 600 mg every 8 hours or Aleve 1 tablet every 12 hours. Please do not use these medications together. You can add Tylenol if you would like as this is metabolized by a different system. Try to elevate leg as much as possible. Return for worsening symptoms. Prescriptions: No Action melatonin 5 mg capsule 5 mg PO DAILY PRN esomeprazole magnesium 20 mg capsule,delayed release(DR/EC) 40 mg PO DAILY ketoconazole 1 % shampoo 1 topical lorazepam 0.5 mg tablet 0.5 mg PO BID PRN buspirone 15 mg tablet 15 mg PO BID betamethasone dipropionate 0.05 % lotion 1 topical BID PRN famotidine [Pepcid] 20 mg tablet 20 mg PO BID Victoza 3-Jose E 0.6 mg/0.1 mL (18 mg/3 mL) pen injector 1.8 mg subcut QDAY clobetasol 0.05 % ointment 1 applic topical QHS Qty: 15 3RF Rx Instructions: Use nightly as needed for 4 weeks, then twice weekly. propranolol 120 mg capsule,extended release 24 hr 120 mg PO QDAY rosuvastatin 20 mg tablet 20 mg PO QPM valsartan 40 mg tablet 20 mg PO sertraline 100 mg tablet 100 mg PO BID modafinil 200 mg tablet 200 mg PO DAILY insulin glargine [Lantus Solostar U-100 Insulin] 100 unit/mL (3 mL) insulin pen 16 unit subcut QPM nystatin 100,000 unit/gram cream 1 applic topical BID albuterol sulfate 90 mcg/actuation HFA aerosol inhaler 1 - 2 puff INHALATION Q4H PRN (Reason: wheezing) buspirone 30 mg tablet 30 mg PO DAILY cetirizine 10 mg tablet 10 mg DAILY clobetasol 0.05 % shampoo topical fluticasone propionate [24 Hour Allergy Relief] 50 mcg/actuation spray,suspension 2 spray intranasal DAILY Rx Instructions: administer into each nostril Follow Up/Referrals: Milagro Noriega DO [Primary Care Provider] - Stand Alone Forms: [facility]
--- NOTE | 2024-10-01 22:51 | CRLHL7_ITS ---
For Patients: As a result of the Century Cures Act, medical imaging exams and procedure reports are released immediately into your electronic medical record. You may view this report before your referring provider. If you have questions, please contact your health care provider. INDICATION: Pain and swelling. No trauma. TECHNIQUE: Three views of the right ankle. COMPARISON: November 11, 2023. FINDINGS: Again noted are postsurgical changes from open reduction internal fixation with an intra medullary fibular ryder and 2 transversely oriented screws distally. A previously identified screw traversing the tibia and fibula has been removed. There is a lucent pin tract. There is soft tissue swelling about the ankle particularly laterally but also medially. There is no acute fracture, dislocation, and no obvious hardware failure. The tibiotalar joint space is intact. IMPRESSION: 1. Soft tissue swelling. 2. No acute fracture or dislocation. 3. Postsurgical change of the fibula. Interval removal of the tibial fibular screw. Dictated by Asa Hines MD @ 10/01/2024 11:05:43 PM (Electronically Signed)
[2024-10-01] MEDS: KETOROLAC 30 MG/ML inj IM (23:18)
--- OUTSIDE RECORDS SUMMARY | 2024-10-01 23:18 | XMS_ITS | Continuity of Care Document ---
Author Name NwRONNIEN User [facility] Address Unknown Organization Unknown Address Unknown Procedures FILTER APPLIED:Only known Procedures with Onset Date within the last 5 years Procedure Date Procedure Provider Additional Inform ation Status MRI JNT OF LWR EXTRE W/O DYE (77731) Completed MANUAL THERAPY 1/> REGIONS (88054) Completed PT EVAL LOW COMPLEX 20 MIN (09858) Completed THERAPEUTIC EXERCISES (96655) Completed FLUOROSCOPY <1 HR PHYS/QHP (03162) Completed GLUCOSE BLOOD TEST (21415) Completed ECHO GUIDE FOR BIOPSY (24105) Completed OPEN TREATMENT OF BIMALLEOLAR ANKLE FRACTURE, INCLUDES INTERNAL FIXATION, WHEN PERFORMED (15021) Completed PT EVAL LOW COMPLEX 20 MIN (61730) Completed GAIT TRAINING THERAPY (18411) Completed ANESTH LOWER LEG BONE SURG (16939) Completed X-RAY EXAM OF ANKLE (04082) Completed X-RAY EXAM OF ANKLE (46456) Completed THER/PROPH/DIAG INJ IV PUSH (01055) Completed MEASURE BLOOD OXYGEN LEVEL (94479) Completed EMERGENCY DEPT VISIT MOD MDM (76379) Completed TX/PRO/DX INJ NEW DRUG ADDON (45927) Completed US EXAM OF HEAD AND NECK (68219) Completed Encounters FILTER APPLIED:Only known Encounters with Admission Date within the last 5 years Encounter Location Admission Discharge Billing Code Youth Services Specialist [facility]
--- OUTSIDE RECORDS SUMMARY | 2024-10-01 23:18 | XMS_ITS | Clinical Summary ---
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 /mf Pap smear for cervical cancer screening [...] Type Department Care Team Description 09/26/2024 Refill [facility] [address] [place] [address] Milagro Noriega, Refill Request (Ozempic) 09/17/2024 Refill [facility] [address] [place] [address] Milagro Noriega, Refill Request (Lantus Solostar U-100 Insulin) 09/15/2024 Refill [facility] [address] [place] [address] Milagro Noriega DO Refill Request (Lantus Solostar U-100 Insulin) 09/14/2024 Telephone [facility] [address] [place] [address] Silvia Guadalupe MD Prior Authorization (modafiniL (PROVIGIL) 200 mg tablet Approved September 15, 2024 to September 15, 2025) 09/14/2024 Refill [facility] [address] [place] [address] Milagro Noriega DO Refill Request (Onetouch Verio Test Strips) 09/12/2024 2:15 PM X RAY EQUIPMENT TESTER Telemedicine [facility] [address] [place] [address] Silvia Guadalupe MD Telehealth ([place]); Medication Management 09/12/2024 Travel 09/10/2024 Refill [facility] [address] [place] [address] Steven Henry MD Refill Request (Valsartan) 09/06/2024 Refill [facility] [address] [place] [address] Silvia Guadalupe MD Refill Request (Buspirone, Buspirone) 08/04/2024 Telephone [facility] [address] [place] [address] Silvia Guadalupe MD Refill Request (Sertraline, denied no longer taking) 08/04/2024 Refill [facility] [address] [place] [address] Milagro Noriega DO Refill Request (Esomeprazole) 07/30/2024 Refill [facility] [address] [place] [address] Milagro Noriega DO Refill Request (Ozempic) 07/23/2024 Refill [facility] [address] [place] [address] Steven Henry MD Refill Request (Valsartan) 07/19/2024 Refill [facility] [address] [place] [address] Silvia Guadalupe MD Refill Request (Escitalopram Oxalate-denied, orders on file) 07/15/2024 2:15 PM CDT Telemedicine [facility] [address] [place] [address] Silvia Guadalupe MD Telehealth ([place]); Medication Management 07/11/2024 9:10 AM CDT Office Visit [facility] [address] [place] [address] Milagro Noriega DO Diabetes; Immunization/Injectio n 07/11/2024 Travel 07/10/2024 Travel 07/08/2024 Refill [facility] [address] [place] [address] Milagro Noriega DO Refill Request (Propranolol Er) from Last 3 Months Immunizations Name Administration Dates Next Due AMB Influenza, IIV3 (Age >=3 years)(Flu Clinic Only) 08/15/2008 COVID-19 VACCINE SPIKEVAX (M ODERNA 50MCG/0.5ML) 12YO+ PFS 07/11/2024,09/07/2023 COVID-19 vaccine (Pfizer-Bio NTech 30mcg/0.3mL) 12YO+ BIVALENT CODY CHEEMA 08/04/2022 COVID-19 vaccine (Pfizer-Bio NTech 30mcg/0.3mL) 12YO+ CHANG-SUCROSE MD ANETTEV 04/28/2022 COVID-19 vaccine (Playteau-Bio NTech 30mcg/0.3mL) PF, MDV 04/28/2022,10/21/2021,01/31/2021,2020 Hepatitis B [...] drink = 0.6 oz pur e alcohol) [facility] Utilities Answer Date Recorded Do you have [...] Sex Assigned at Female 08/08/2020 12:48 PM X RAY EQUIPMENT TESTER Legal Sex Female 5:20 AM X RAY EQUIPMENT TESTER Gender Identity Female 08/08/2020 12:48 PM X RAY EQUIPMENT TESTER Sexual Orientation Straight 08/08/2020 12 :48 PM X RAY EQUIPMENT TESTER Occupation Industry Job Start Date Job End [...] st Contact Info) Description 10/13/2024 9:10 AM X RAY EQUIPMENT TESTER Office Visit [facility] [address] [place] [address] Milagro Noriega DO [address] [place] [address] 12/05/2024 2:15 PM CDT Telemedicine [facility] [address] [place], [place] [id number] Silvia Guadalupe MD [address] [address] Health Maintenance Due Date Last [...] history exists Medical Devices Implanted Type Area Laboratory Monitor Device Identifier Shelf Expiration Date Model / Serial / Lot [id number] - [id number] Implanted:Qty: 2 on 03/20/2016 by Jamal Walden MD at [facility] Bilateral: Ear Medtronic 07/04/2017 [id number] / / [id number] Description:Sam T-tube ear tubes Procedures Procedure Name [...] HPV HIGH RISK Routine 10/21/2021 11:45 AM X RAY EQUIPMENT TESTER Cervical cancer screening ANTI HIV 1/2 Add On 03/23/2017 3:43 PM CDT Screen for STD (sexually transmitted disease) ACUTE HEPATITIS PANEL Add On 03/23/2017 3:43 PM CDT Screen for STD (sexually transmitted disease) from Last 3 Months or Most Recently Relevant to Health Maintenance Results * HEMOGLOBIN A1C MONITORING (POCT) (07/11/2024 9:06 AM CDT) POC HEMOGLOBIN A1C 5.9 <6.0 % OF TOTAL HGB [facility] Comment: Any point of care results exhibiting inconsistency with the patient's clinical status should be repeated using a different testing method. Blood BLOOD SPECIMEN / Unknown 07/11/2024 9:06 AM CDT 07/11/2024 9:08 AM CDT us Milagro Noriega DO CHEMISTRY Final Resu lt [facility] [address] [place] [address], [facility] [address] [place] [address] * XR MAMMO BILAT SCREENING (06/07/2024 9:21 [...] health care provider. XR MAMMO BILAT SCREENING [[id number]] CLINICAL HISTORY: This is an asymptomatic 54 y.o. patient. INDICATION FOR EXAM: Mammogram Screening. TECHNIQUE: CC & MLO views were obtained. This study was evaluated with the assistance of Computer-Aided Detection. COMPARISON FILM: Yes 10/28/22 [facility] 04/03/21 [facility] FINDINGS: There are scattered areas of fibroglandular density. There are no dominant masses, suspicious micro calcifications or areas of architectural distortion. us Milagro Noriega DO MAMMO Final Resu lt * LIPID PANEL W REFLEX MEASURED LDL ([id number]) (02/24/2024 9:05 AM CDT) CHOLESTEROL,TOTAL 101 100 - 199 mg/dL 02/24/2024 5:09 PM CDT [facility] Comment: Cholesterol, Total Reference Ranges Desirable <200 mg/dL Borderline 200-239 mg/dL High >=240 mg/dL TRIGLYCERIDES 81 <150 mg/dL 02/24/2024 5:09 PM CDT [facility] HDL CHOLESTEROL 43 >40 mg/dL 5:09 PM CDT [facility] NON-HDL CHOLESTEROL 58 <145 mg/dl 02/24/2024 5:09 PM CDT [facility] CHOL/HDL RATIO 2.35 <4.50 02/24/2024 5:09 PM CDT [facility] LDL CHOLESTEROL 42 <=130 mg/dL 02/24/2024 5:09 PM CDT [facility] VLDL CHOLESTEROL 16 <=30 mg/dL 02/24/2024 5:09 PM CDT [facility] PROVIDER ORDERED STATUS RANDOM 02/24/2024 5:09 PM CDT [facility] Blood BLOOD SPECIMEN / Unknown Venipuncture / Unknown 02/24/2024 9:05 AM CDT 02/24/2024 9:06 AM CDT us Steven Henry MD CHEMISTRY Final Result [facility] [address] [place] [address], * COLONOSCOPY (12/25/2021 8:43 AM CDT) 12/25/2021 [...] 8:43 AM Procedure Code(s): --- Professional --- 58916, Colonoscopy, flexible; diagnostic, including collection of specimen(s) bybrushing or washing, when performed (separateprocedure) Diagnosis Code(s): --- Professional --- Z12.11, Encounter for screening formalignant neoplasm of colon CPT copyright 2020 [employer]. All rights reserved. The codes documented in this report are preliminary and upon activities volunteer reviewmay be revised to meet current compliance requirements. Scope In: 9:01:49 AM Scope Withdrawal Time 0 hours 7 minutes 22 seconds Scope Out: 9:17:38 AM us Hubert You MD PROCEDURE ORD Final Res ult * HPV HIGH RISK (10/21/2021 11:45 AM X RAY EQUIPMENT TESTER) TYPE 16 Negative Negative 10/23/2021 12:15 PM X RAY EQUIPMENT TESTER [facility] [employer] [facility] TYPE 18 Negative Negative 10/23/2021 12:15 PM X RAY EQUIPMENT TESTER [facility] OTHER HIGH RISK TYPES Negative Negative 10/23/2021 12:15 PM X RAY EQUIPMENT TESTER [facility] Other (Cervical) Non-Blood / Unknown 10/21/2021 11:45 AM X RAY EQUIPMENT TESTER 10/22/2021 9:38 AM X RAY EQUIPMENT TESTER Narrative [facility] - 10/23/2021 12:15 PM X RAY EQUIPMENT TESTER HPV types 16, 18, 31, 33, 35, 39, 45, 51, 52, 56, 58, 59, 66 and 68 DNA were undetectable or below the pre-set threshold. Methodology: Britt [place] 4800 HPV Test [facility] Haydee Noriega MICROBIOLOGY Final Resu lt Performing Organization Address City/[facility]/ZIP Co de Phone Number [facility] [address] [place] [address], * ANTI HIV 1/2 (03/23/2017 3:43 PM CDT) HIV-1/HIV-2 ANTIBODY Non-Reacti ve Non-Reacti ve 03/25/2017 3:58 PM CDT [facility] Blood BLOOD SPECIMEN / Unknown Venipuncture / Unknown 03/23/2017 3:43 PM CDT 03/23/2017 3:43 PM CDT Narrative [facility] - 03/25/2017 3:58 PM CDT HIV-1 p24 and HIV-1/HIV-2 Ab not detected [facility] SEND OUTS Final Resu lt Performing Organization Address City/[facility]/ZIP Co de Phone Number [facility] [address] [place] [address], * ACUTE HEPATITIS PANEL (03/23/2017 3:43 PM CDT) HEPATITIS C ANTIBODY Non-Reactive Non-Reactive 03/25/2017 3:58 PM CDT [facility] IGM ANTI HAV Non-Reactive Non-Reactive 03/25/20 17 3:58 PM CDT [facility] HBSAG Nonreactive Nonreactive 03/25/2017 3:58 PM CDT [facility] IGM ANTI HBC Non-Reactive Non-Reactive 03/25/20 17 3:58 PM CDT [facility] Blood BLOOD SPECIMEN / Unknown Venipuncture / Unknown 03/23/2017 3:43 PM CDT 03/23/2017 3:43 PM CDT Narrative [facility] - 03/25/2017 3:58 PM CDT Anti-HBc IgM not detected. Does not exclude the possibility of exposure to or infection with HBV. Milagro Noriega DO SEND OUTS Final Resu lt [facility] [address] [place] [address], [place] from Last 3 Months or Most Recently Relevant to Health Maintenance Insurance MEDICARE PART A HB ONLY [facility] * Guarantor: [facility] [employer] Account Type Relation to Patient Date of Phone Billing Address Contract 2004 [address] [place] [id number] Advance Directives * Full Code (Latest Code Status on File) Date Activated Date Inactivated Comments 03/20/2016 7:36 AM 03/20/2016 5:18 PM Question Answer Comments Code Status Discussion: Not Discussed Care Teams Real Estate Leasing Manager Relationship Specialty Start Date End Date Milagro Noriega DO [address] [place] [address] PCP - General Family Practice 01/21/16 Silvia Guadalupe MD [address] [facility] [address] [facility] [address] Psychiatry Psychiatry 02/26/21
--- OUTSIDE RECORDS SUMMARY | 2024-10-01 23:18 | XMS_ITS ---
Author Organization Unknown Medications Medication Instructions Effective Dates (start - stop) Status triamcinolone acetonide 0.00 1 MG/MG Topical Ointment - Completed 3 ML insulin glargine 100 UN T/ML Pen Injector [Lantus] - Completed - - Compl eted 24 HR desvenlafaxine succina te 25 MG Extended Release Oral Tablet - Compl eted lorazepam 0.5 MG Oral Tablet [id number] 0:00:00Z - Completed modafinil 200 MG Oral Tablet [id number] 0:00:00Z - Completed - - Compl eted 24 HR propranolol hydrochlor brenda 120 MG Extended Release Oral Capsule - Completed lorazepam 0.5 MG Oral Tablet [id number] 0:00:00Z - Completed 3 ML insulin glargine 100 UN T/ML Pen Injector [Lantus] - Completed 24 HR propranolol hydrochlor brenda 120 MG Extended Release Oral Capsule - Completed cetirizine hydrochloride 10 MG Oral Tablet - Completed cetirizine hydrochloride 10 MG Oral Tablet - Completed modafinil 200 MG Oral Tablet [id number] 0:00:00Z - Completed lorazepam 0.5 MG Oral Tablet [id number] 0:00:00Z - Completed rosuvastatin calcium 20 MG O ral Tablet - Completed - - Compl eted - - Compl eted - - Compl eted buspirone hydrochloride 15 M G Oral Tablet - Completed esomeprazole 40 MG Delayed R elease Oral Capsule - Completed modafinil 200 MG Oral Tablet [id number] 0:00:00Z - Completed 24 HR propranolol hydrochlor brenda 120 MG Extended Release Oral Capsule - Completed cetirizine hydrochloride 10 MG Oral Tablet - Completed 3 ML insulin glargine 100 UN T/ML Pen Injector [Lantus] - Completed - - Compl eted lorazepam 0.5 MG Oral Tablet [id number] 0:00:00Z - Completed 3 ML liraglutide 6 MG/ML Pen Injector [Victoza] - Completed lorazepam 0.5 MG Oral Tablet [id number] 0:00:00Z - Completed cetirizine hydrochloride 10 MG Oral Tablet - Completed - - Compl eted - - Compl eted 24 HR desvenlafaxine succina te 25 MG Extended Release Oral Tablet - Compl eted 24 HR propranolol hydrochlor brenda 120 MG Extended Release Oral Capsule - Completed famotidine 20 MG Oral Tablet [id number] 0:00:00Z - Completed cetirizine hydrochloride 10 MG Oral Tablet - Completed - - Compl eted esomeprazole 40 MG Delayed R elease Oral Capsule - Completed sertraline 100 MG Oral Tablet 2024-02-06 00:00:00Z - Completed famotidine 20 MG Oral Tablet [id number] 0:00:00Z - Completed 24 HR desvenlafaxine succina te 50 MG Extended Release Oral Tablet - Compl eted buspirone hydrochloride 30 M G Oral Tablet - Completed - - Compl eted buspirone hydrochloride 30 M G Oral Tablet - Completed buspirone hydrochloride 15 M G Oral Tablet - Completed buspirone hydrochloride 30 M G Oral Tablet - Completed famotidine 20 MG Oral Tablet [id number] 0:00:00Z - Completed famotidine 20 MG Oral Tablet [id number] 0:00:00Z - Completed - - Compl eted [...] - Completed lorazepam 0.5 MG Oral Tablet [id number] 0:00:00Z - Completed buspirone hydrochloride 30 M [...] - Completed famotidine 20 MG Oral Tablet [id number] 0:00:00Z - Completed 3 ML liraglutide 6 MG/ML Pen Injector [Victoza] - Completed valsartan 40 MG Oral Tablet [id number] :00:00Z - Completed famotidine 20 MG Oral Tablet [id number] 0:00:00Z - Completed 3 ML liraglutide 6 MG/ML Pen Injector [Victoza] - Completed famotidine 20 MG Oral Tablet [id number] 0:00:00Z - Completed clobetasol propionate 0.5 MG /ML Medicated Shampoo - Completed - - Compl eted - - Compl eted modafinil 200 MG Oral Tablet [id number] 0:00:00Z - Completed 24 HR propranolol hydrochlor brenda 120 MG Extended Release Oral Capsule - Completed - - Compl eted buspirone hydrochloride 15 M G Oral Tablet - Completed sertraline 100 MG Oral Tablet 2023-08-11 00:00:00Z - Completed - - Compl eted sertraline 100 MG Oral Tablet 2023-12-01 00:00:00Z - Completed sertraline 50 MG Oral Tablet [id number] 0:00:00Z - Completed cetirizine hydrochloride 10 MG Oral Tablet - Completed cetirizine hydrochloride 10 MG Oral Tablet - Completed famotidine 20 MG Oral Tablet [id number] 0:00:00Z - Completed - - Compl eted famotidine 20 MG Oral Tablet [id number] 0:00:00Z - Completed 3 ML liraglutide 6 MG/ML Pen Injector [Victoza] - Completed sertraline 25 MG Oral Tablet [id number] 0:00:00Z - Completed 24 HR desvenlafaxine succina te 50 MG Extended Release Oral Tablet - Compl eted - - Compl eted - - Compl eted famotidine 20 MG Oral Tablet [id number] 0:00:00Z - Completed clobetasol propionate 0.5 MG /ML Medicated Shampoo - Completed modafinil 200 MG Oral Tablet [id number] 0:00:00Z - Completed 3 ML insulin glargine 100 UN T/ML Pen Injector [Lantus] - Completed - - Compl eted - - Compl eted buspirone hydrochloride 15 M G Oral Tablet - Completed modafinil 200 MG Oral Tablet [id number] 0:00:00Z - Completed - - Compl eted modafinil 200 MG Oral Tablet [id number] 0:00:00Z - Completed diazepam 5 MG Oral Tablet [id number]:0 0:00Z - Completed famotidine 20 MG Oral Tablet [id number] 0:00:00Z - Completed cetirizine hydrochloride 10 MG Oral Tablet - Completed 3 ML insulin glargine 100 UN T/ML Pen Injector [Lantus] - Completed clobetasol propionate 0.5 MG /ML Medicated Shampoo - Completed - - Compl eted esomeprazole 40 MG Delayed R elease Oral Capsule - Completed valsartan 40 MG Oral Tablet [id number] :00:00Z - Completed cetirizine hydrochloride 10 MG Oral Tablet - Completed Patient Care team information Name Category Status Period Participants - - Proposed period not known -
[2024-10-01 23:20] VITALS: BP 118/79; PULSE 78; RESP 16; TEMP 36.9
== END 2024-10-01 23:21 | disposition home or self-care (01) ==
PROVIDERS: Emergency Provider Family Medicine; PCP Family Medicine
DX: M25.571 Pain in right ankle and joints of right foot (principal)
CPT/HCPCS: 73610; 96372; 99283; 99284; J1885

== ENCOUNTER 2025-03-25 15:56 | Emergency (ER) | payer OTHER, SELFPAY ==
--- OUTSIDE RECORDS SUMMARY | 2025-03-25 15:58 | XMS_ITS | Continuity of Care Document ---
Author Organization [facility] Address [address] [address] Insurance Providers Payer Plan Claims Address Claims Phone Policy Number Group Number Relation Employer Guarantor Name Guarantor Guarantor Address Guarantor Phone MEDIC ARE PART A HB ONLY ATTN: CLAIMS, [address], [place] [address] [address] Self Mary Ellen Alcaraz [address] [address] [facility] [address], [place] [address] [id number] Self Mary Ellen R Kieran [address], [place] [address] [facility] [id number] Self Mary Ellen R Kieran [address], [place] [address] Problems Condition ICD9 code ICD10 code SNOMED code Start Date End Date S tatus Encounter for screening for other metabolic disorders Z13.228 Results No Results Allergies, adverse reactions, alerts No known allergies and adverse reactions Medications No administered medications reported Vital Signs No vital signs reported Social History No smoking Hx information available
--- OUTSIDE RECORDS SUMMARY | 2025-03-25 15:58 | XMS_ITS ---
Author Organization Unknown Medications Medication Instructions Effective Dates (start - stop) Status triamcinolone acetonide 0.00 1 MG/MG Topical Ointment - Completed 3 ML insulin glargine 100 UN T/ML Pen Injector [Lantus] - Completed - - Compl eted 24 HR desvenlafaxine succina te 25 MG Extended Release Oral Tablet - Compl eted lorazepam 0.5 MG Oral Tablet [id number] 0:00:00Z - Completed modafinil 200 MG Oral Tablet [id number] 0:00:00Z - Completed - - Compl eted 24 HR propranolol hydrochlor brenda 120 MG Extended Release Oral Capsule - Completed lorazepam 0.5 MG Oral Tablet [id number] 0:00:00Z - Completed 3 ML insulin glargine 100 UN T/ML Pen Injector [Lantus] - Completed 24 HR propranolol hydrochlor brenda 120 MG Extended Release Oral Capsule - Completed cetirizine hydrochloride 10 MG Oral Tablet - Completed cetirizine hydrochloride 10 MG Oral Tablet - Completed modafinil 200 MG Oral Tablet [id number] 0:00:00Z - Completed lorazepam 0.5 MG Oral Tablet [id number] 0:00:00Z - Completed rosuvastatin calcium 20 MG O ral Tablet - Completed - - Compl eted - - Compl eted - - Compl eted buspirone hydrochloride 15 M G Oral Tablet - Completed esomeprazole 40 MG Delayed R elease Oral Capsule - Completed modafinil 200 MG Oral Tablet [id number] 0:00:00Z - Completed 24 HR propranolol hydrochlor brenda 120 MG Extended Release Oral Capsule - Completed cetirizine hydrochloride 10 MG Oral Tablet - Completed 3 ML insulin glargine 100 UN T/ML Pen Injector [Lantus] - Completed - - Compl eted lorazepam 0.5 MG Oral Tablet [id number] 0:00:00Z - Completed 3 ML liraglutide 6 MG/ML Pen Injector [Victoza] - Completed lorazepam 0.5 MG Oral Tablet [id number] 0:00:00Z - Completed cetirizine hydrochloride 10 MG Oral Tablet - Completed - - Compl eted - - Compl eted 24 HR desvenlafaxine succina te 25 MG Extended Release Oral Tablet - Compl eted 24 HR propranolol hydrochlor brenda 120 MG Extended Release Oral Capsule - Completed famotidine 20 MG Oral Tablet [id number] 0:00:00Z - Completed cetirizine hydrochloride 10 MG Oral Tablet - Completed - - Compl eted esomeprazole 40 MG Delayed R elease Oral Capsule - Completed sertraline 100 MG Oral Tablet 2024-02-06 00:00:00Z - Completed famotidine 20 MG Oral Tablet [id number] 0:00:00Z - Completed 24 HR desvenlafaxine succina te 50 MG Extended Release Oral Tablet - Compl eted buspirone hydrochloride 30 M G Oral Tablet - Completed - - Compl eted buspirone hydrochloride 30 M G Oral Tablet - Completed buspirone hydrochloride 15 M G Oral Tablet - Completed buspirone hydrochloride 30 M G Oral Tablet - Completed famotidine 20 MG Oral Tablet [id number] 0:00:00Z - Completed famotidine 20 MG Oral Tablet [id number] 0:00:00Z - Completed - - Compl eted [...] - Completed lorazepam 0.5 MG Oral Tablet [id number] 0:00:00Z - Completed buspirone hydrochloride 30 M [...] - Completed famotidine 20 MG Oral Tablet [id number] 0:00:00Z - Completed 3 ML liraglutide 6 MG/ML Pen Injector [Victoza] - Completed valsartan 40 MG Oral Tablet [id number] :00:00Z - Completed famotidine 20 MG Oral Tablet [id number] 0:00:00Z - Completed 3 ML liraglutide 6 MG/ML Pen Injector [Victoza] - Completed famotidine 20 MG Oral Tablet [id number] 0:00:00Z - Completed clobetasol propionate 0.5 MG /ML Medicated Shampoo - Completed - - Compl eted - - Compl eted modafinil 200 MG Oral Tablet [id number] 0:00:00Z - Completed 24 HR propranolol hydrochlor brenda 120 MG Extended Release Oral Capsule - Completed - - Compl eted buspirone hydrochloride 15 M G Oral Tablet - Completed sertraline 100 MG Oral Tablet 2023-08-11 00:00:00Z - Completed - - Compl eted sertraline 100 MG Oral Tablet 2023-12-01 00:00:00Z - Completed sertraline 50 MG Oral Tablet [id number] 0:00:00Z - Completed cetirizine hydrochloride 10 MG Oral Tablet - Completed cetirizine hydrochloride 10 MG Oral Tablet - Completed famotidine 20 MG Oral Tablet [id number] 0:00:00Z - Completed - - Compl eted famotidine 20 MG Oral Tablet [id number] 0:00:00Z - Completed 3 ML liraglutide 6 MG/ML Pen Injector [Victoza] - Completed sertraline 25 MG Oral Tablet [id number] 0:00:00Z - Completed 24 HR desvenlafaxine succina te 50 MG Extended Release Oral Tablet - Compl eted - - Compl eted - - Compl eted famotidine 20 MG Oral Tablet [id number] 0:00:00Z - Completed clobetasol propionate 0.5 MG /ML Medicated Shampoo - Completed modafinil 200 MG Oral Tablet [id number] 0:00:00Z - Completed 3 ML insulin glargine 100 UN T/ML Pen Injector [Lantus] - Completed - - Compl eted - - Compl eted buspirone hydrochloride 15 M G Oral Tablet - Completed modafinil 200 MG Oral Tablet [id number] 0:00:00Z - Completed - - Compl eted modafinil 200 MG Oral Tablet [id number] 0:00:00Z - Completed diazepam 5 MG Oral Tablet [id number] 0:00Z - Completed famotidine 20 MG Oral Tablet [id number] 0:00:00Z - Completed cetirizine hydrochloride 10 MG Oral Tablet - Completed 3 ML insulin glargine 100 UN T/ML Pen Injector [Lantus] - Completed clobetasol propionate 0.5 MG /ML Medicated Shampoo - Completed - - Compl eted esomeprazole 40 MG Delayed R elease Oral Capsule - Completed valsartan 40 MG Oral Tablet [id number] :00:00Z - Completed cetirizine hydrochloride 10 MG Oral Tablet - Completed Patient Care team information Name Category Status Period Participants - - Proposed period not known -
--- OUTSIDE RECORDS SUMMARY | 2025-03-25 15:58 | XMS_ITS | Clinical Summary ---
Author Organization [facility] Address [address] [place] [address] Care Team Providers Care Dice Table Operator Name Role Phone Milagro Noriega Primary Care Provider [phone] Silvia Guadalupe MD Unavail able Ariadna Villa RN Unavailable [phone] Allergies Active Allergy Reactions Criticality Noted Date Comments Lisinopril Throat Swelling/Closing High 02/24/2023 ?cause mild throat swelling Metformin Diarrhea 01/28/2022 Medications melatonin 5 mg tab Take 1 tablet by mouth at bedtime. 2018 Active fluticasone (50 mcg per actuation) nasal solution (FLONASE)Indications:D ysfunction of left eustachian tube Inhale 2 Sprays to both nostrils once daily. 16 g 3 2021 Active betamethasone dipropionate 0.05% (DIPROSONE 0.05% [...] BREATH OR WHEEZING 6.7 g 2022 Active BD Adrienne 2nd Gen Pen Needle 32 gauge x 5/32Indications:Uncon trolled type 2 diabetes mellitus with hyperglycemia (HC) REMOVE THE 2 COVERS ON THE PEN NEEDLE BEFORE ADMINISTERING INSULIN AND VICTOZA DOSE 200 Each 3 2023 Active Clobetasol Propionate 0.05 % [...] times daily 300 Each 3 2023 Active propranolol ER (INDERAL LA) 120 mg Cs24 Sustained-Release capsuleIndications:HTN (hypertension) TAKE 1 CAPSULE(120 MG) BY MOUTH EVERY DAY 90 Capsule 3 2023 Active ketoconazole 2 [...] to schedule. 90 Tablet 1 2023 Active blood sugar diagnostic (OneTouch Verio test strips) stripIndications:Type II diabetes mellitus with complication (HC) USE TO TEST THREE TIMES DAILY 300 Each 3 2023 Active nystatin 100,000 unit/gram creamIndications:Yeast vaginitis Apply topically to affected area(s) two times daily. Until resolved. 120 g 1 2024 Active fluconazole (DIFLUCAN) 150 mg tabletIndications:Erendira a pedis of both feet Take 1 Tablet (150 mg) by mouth once weekly. 6 Tablet 2024 Active blood-glucose meterIndications:Type II diabetes mellitus with complication (HC) Check once a day 1 Kit 2024 Active escitalopram oxalate (LEXAPRO) 20 mg tabletIndications:Mode rate recurrent major depression (HC),Obsessive-compuls ej disorder, unspecified type,Generalized anxiety disorder Take 1 Tablet (20 mg) by mouth once daily. 90 Tablet 1 2024 Active busPIRone (BUSPAR) 30 mg tabletIndications:Mode rate recurrent major depression (HC),Obsessive-compuls ej disorder, unspecified type,Generalized anxiety disorder,Social anxiety disorder Take 1 Tablet (30 mg) by mouth once daily. (30 mg in the morning) 90 Tablet 1 2024 Active busPIRone (BUSPAR) 15 mg tabletIndications:Mode rate recurrent major depression (HC),Obsessive-compuls ej disorder, unspecified type,Generalized anxiety disorder,Social anxiety disorder Take 1 Tablet (15 mg) by mouth once daily. (15 mg at bedtime) 90 Tablet 1 2024 Active LORazepam (ATIVAN) 0.5 mg tabIndications:Moderat e recurrent major depression (HC),Panic attacks,Generalized anxiety disorder Take 1 Tablet (0.5 mg) by mouth 2 times daily if needed for Anxiety or Sleep. 60 Tablet 5 2024 Active modafiniL (PROVIGIL) 200 mg tabletIndications:Mode rate recurrent major depression (HC),Hypersomnia Take 1 Tablet (200 mg) by mouth once daily in the morning. 90 Tablet 1 2024 Active esomeprazole delayed release capsule 40 mgIndications:Gastroes ophageal reflux disease, unspecified whether esophagitis present Take 1 Capsule (40 mg) by mouth once daily before a meal. 90 Capsule 3 2024 Active Lantus Solostar U-100 Insulin 100 unit/mL (3 mL) penIndications:Type II diabetes mellitus with complication (HC) Inject 50 units subcutaneous before bedtime. Product desired: LANTUS SOLOSTAR 90 mL 2024 Active rosuvastatin 20 mg tabletIndications:Pure hypercholesterolemia Take 1 Tablet (20 mg) by mouth once daily. Needs cardiology appt (MD or SPECIAL OFFICER) for further refills. Call to schedule. 90 Tablet 2024 Active semaglutide (Ozempic) 2 mg/dose (8 mg/3 mL) subcutaneous penIndications:Uncontr olled type 2 diabetes mellitus with hyperglycemia (HC) INJECT 2MG SUBCUTANEOUS ONCE WEEKLY 9 mL 2024 Active Tinactin 1 % sprayIndications:Tinea pedis of both feet APPLY TOPICALLY TO THE AFFECTED AREA TWICE DAILY 133 g 2024 Active famotidine 20 mg tabletIndications:Uzma roesophageal reflux disease, unspecified whether esophagitis present TAKE 1 TABLET(20 MG) BY MOUTH TWICE DAILY 180 Tablet 2 2024 Active Dexcom G7 Business Objects Architect for continuous blood glucose monitor (CGM)Indications:Type 2 diabetes mellitus with microalbuminuria, with long-term current use of insulin (HC) To be used to read blood sugars follow horse breaker directions. 1 Each 2024 Active Dexcom G7 Sensor for continuous blood glucose monitor (CGM)Indications:Type 2 diabetes mellitus with microalbuminuria, with long-term current use of insulin (HC) To be used to read blood sugars, follow horse breaker directions. Change each sensor every 10 days. 3 Each 11 2024 Active cetirizine 10 mg tabletIndications:Coug h, unspecified type TAKE 1 TABLET(10 MG) BY MOUTH EVERY DAY 90 Tablet 3 2024 Active cholecalciferol (Vitamin D-3) 2,000 unit capsuleIndications:Vit cai D deficiency Take 1 Capsule (2,000 units) by mouth once daily. Start after complete 1 month of 5000IU daily 90 Capsule 3 2024 Active cholecalciferol (Vitamin D3) (Vitamin D-3) 5,000 unit tab tabletIndications:Chanell min D deficiency Take 1 Tablet (5,000 units) by mouth once daily. 30 Tablet 2024 Active cetirizine (ZYRTEC) 10 mg tabletIndications:Coug h, unspecified type TAKE 1 TABLET(10 MG) BY MOUTH EVERY DAY 90 Tablet 2 03/19 Discontinued Active Problems Problem Noted Date Diagnosed Date Recurrent insomnia 07/15/2024 Headache, chronic daily 04/16/2023 Obsessive-compulsive disorder 04/16/2023 Type 2 diabetes mellitus wit h microalbuminuria, with long-term current use of insulin 02/25/2023 Hypersomnia 05/13/2021 Moderate recurrent major depression 02/26/2021 Social anxiety disorder 02/26/2021 Panic attacks 02/26/2021 HTN (hypertension) 09/13/2019 Controlled substance agreement signed 11/23/2017 Overview (11/23/2017): Signed: 02/01/15-Dinorah Baxter APRN, BC, HOUSECLEAN[employer] FLOOR /mf Pap smear for cervical cancer screening [...] Encounters Date Type Department Care Team Description 03/21/2025 Travel 03/19/2025 Orders Only [facility] [address] [place] [address] Milagro Noriega DO <No scans attached> 03/18/2025 Refill [facility] [address] [place] [address] Milagro Noriega DO Refill Request (Cetirizine) 03/17/2025 10:00 AM CDT Office Visit [facility] [address] [place] [address] Milagro Noriega DO Fatigue (started about two months ago. always feeling tired and weak. ) 03/16/2025 Travel 02/10/2025 Telephone [facility] [address] [place] [address] Milagro Noriega DO Prior Authorization (Dexcom G7 Business Objects Architect for continuous blood glucose monitor (CGM) Approved 02/10/25-02/10/26) 02/10/2025 Telephone [facility] [address] [place] [address] Milagro Noriega DO Prior Authorization (Dexcom G7 Sensor for continuous blood glucose monitor (CGM) Approved 02/10/25-02/11/28) 02/07/2025 1:00 PM CDT Phone Office Visit [address] [address] Ariadna Villa RN Diabetes (Annual assessment) 02/07/2025 Travel 01/28/2025 Refill [facility] [address] [place] [address] Milagro Noriega DO Refill Request (Famotidine) 01/18/2025 Refill [facility] [address] [place] [address] Milagro Noriega DO Refill Request (Ozempic, Tinactin) 01/13/2025 Refill [facility] [address] [place] [address] Steven Henry MD Refill Request (Rosuvastatin) 01/11/2025 9:10 AM CDT Office Visit [facility] [address] [place] [address] Milagro Noriega DO Diabetes 01/11/2025 Travel from Last 3 Months Immunizations Immunization Administration Dates Next Due AMB Influenza, IIV3 (Age >=3 years)(Flu Clinic Only) 08/15/2008 COVID-19 VACCINE SPIKEVAX (M ODERNA 50MCG/0.5ML) 12YO+ PFS 07/11/2024,09/07/2023 COVID-19 vaccine (RyMed TechnologiesBio NTech 30mcg/0.3mL) 12YO+ BIVALENT PF, MDV 08/04/2022 COVID-19 vaccine (Pfizer-Bio NTech 30mcg/0.3mL) 12YO+ CHANG-SUCROSE PF, MDV 04/28/2022 COVID-19 vaccine (RyMed TechnologiesBio NTech 30mcg/0.3mL) PF, MDV 04/28/2022,10/21/2021,01/31/2021,2020 Hepatitis B [...] Given: Yes Alcohol Use Standard Drinks/Week Comments Never 0 (1 standard drink = 0.6 oz pur e alcohol) PHQ-2 Answer Date Recorded PHQ-2 TOTAL SCORE 2 12/05/2024 Social Connections Answer Date Recorded Do you [...] is your housing situation today? 1 07/11/2024 Utilities Answer Date Recorded Do you have trouble paying f or utilities (for example, heat, electricity, water, phone)? 1 07/11/2024 Comments No Sex and Gender Information Value Date Recorded Sex Assigned at Female 08/08/2020 12:48 PM TUB MENDER Legal Sex Female 5:20 AM TUB MENDER Gender Identity Female 08/08/2020 12:48 PM TUB MENDER Sexual Orientation Straight 08/08/2020 12 :48 PM TUB MENDER Occupation Industry Job Start Date Job End [...] Sign Reading Time Taken Comments Blood Pressure 126/78 03/17/2025 9:53 AM CDT Pulse 73 03/17/2025 9:53 AM CDT Temperature 36.4 C (97.5 F) 03/08/2024 10:17 AM CDT Respiratory Rate 16 03/08/2024 10:1 7 AM CDT Oxygen Saturation 96% 03/17/2025 9:53 AM CDT Inhaled Oxygen Concentration - - Weight 126.2 kg (278 lb 3.2 oz) 03/17/2025 9:53 AM CDT Height 169.2 cm (5' 6.61) 03/08/2024 1 0:17 AM CDT Body Mass Index 44.08 03/08/2024 10:17 AM CDT Plan of Treatment Upcoming Encounters Date Type Department Care Team (Late st Contact Info) Description 04/17/2025 9:10 AM CDT Office Visit [facility] [address] [place] [address] Milagro Noriega DO [address] [place] [address] 05/16/2025 2:15 PM CDT Telemedicine [facility] [address] [place] [address] Silvia Guadalupe MD [address] [address] Health Maintenance Due Date Last Done Comments Zoster (shingles) series for age 50+ (1 of 2) 2022 BMI (ht and wt on same day) for age 18+ 03/08/2025 03/08/2024, 02/12/2024, 10/27/2023, Additional history exists Mammogram for age 45-75 06/07/2025 06/07/20 24, 10/28/2022, 04/03/2021, Additional history exists Depression screening for age 12+ 12/05/2025 12/05/2024, 09/14/2024, 09/14/2024, Additional history exists Pap test for age 21-65 10/21/2026 2, 10/21/2021, 07/21/2018, Additional history exists Lipids for age 45-75 01/11/2030 01/11/2025, 02/24/2024, 01/04/2024, Additional history exists Tetanus booster 02/21/2031 02/21/2021, 09/29, 09/28/1998 Colonoscopy through age 75 12/26/203112/25, 12/25/2021, 12/25/2021 Tdap Completed 10/23/2010 HIV for age 15-65 Completed 03/23/2017, 07/13/2007 Hepatitis C screening for ag e 18-79 Completed 03/23/2017 Pneumococcal series for age 50+ Completed , 07/01/2021 Hepatitis B series for 19+ Completed 11/10, 04/28/2022, 01/30/1994, Additional history exists COVID-19 vaccine series Completed 07/11/20, 09/07/2023, 08/04/2022, Additional history exists Influenza Vaccine Completed 07/11/2024, , 08/04/2022, Additional history exists Medical Devices Implanted Type Area Senior Systems Programmer Device Identifier Shelf Expiration Date Model / Serial / Lot [id number] - [id number] Implanted:Qty: 2 on 03/20/2016 by Jamal Walden MD at [facility] Bilateral: Ear Medtronic 07/04/2017 [id number] / / [id number] Description:Sam T-tube ear tubes Procedures Procedure Name Priority Date/Time Associated Diagnosis Comments URINE ALBUMIN TO CREATININE RATIO, RANDOM Routine 03/21/2025 6:00 AM CDT Type II diabetes mellitus with complication (HC) TSH WITH REFLEX Routine 03/17/2025 10:38 AM CDT Fatigue, unspecified type HEMOGLOBIN Routine 03/17/2025 10:38 AM CDT Fatigue, unspecified type VITAMIN D 25 (DEFICIENCY) Routine 03/17/2025 10:38 AM CDT Vitamin D deficiency FSH Routine 03/17/2025 10:38 AM CDT Amenorrhea HEMOGLOBIN A1C MONITORING (POCT) Routine 03/17/2025 10:37 AM CDT Type II diabetes mellitus with complication (HC) LDL CHOLESTEROL,DIRECT Routine 01/11/2025 9:04 AM CDT Hyperlipidemia, unspecified hyperlipidemia type BASIC METABOLIC PANEL Routine 01/11/2025 9:04 AM CDT HTN (hypertension) HEMOGLOBIN A1C MONITORING (POCT) Routine 01/11/2025 9:03 AM CDT Type II diabetes mellitus with complication (HC) XR MAMMO BILAT SCREENING Routine 06/07/2024 9:21 AM CDT Encounter for screening mammogram for malignant neoplasm of breast COLONOSCOPY SCREENING Routine 12/25/2021 7:59 AM CDT Screening for colon cancer HPV HIGH RISK Routine 10/21/2021 11:45 AM TUB MENDER Cervical cancer screening ANTI HIV 1/2 Add On 03/23/2017 3:43 PM CDT Screen for STD (sexually transmitted disease) ACUTE HEPATITIS PANEL Add On 03/23/2017 3:43 PM CDT Screen for STD (sexually transmitted disease) from Last 3 Months or Most Recently Relevant to Health Maintenance Results * URINE ALBUMIN TO CREATININE RATIO, RANDOM (03/21/2025 6:00 AM CDT) ALB RAND URINE <12.0 mg/L 03/21/2025 4:24 PM CDT [facility] CREATININE,URINE 0.92 g/L 03/21/20 4:24 PM CDT [facility] ALBUMIN TO CREATININE RATIO,RAND UR 03/21/2025 4:24 PM CDT [facility] Comment:Urine Albumin below measurement range, unable to calculate. Urine URINE SPECIMEN / Unknown Non-Blood / Unknown 03/21/2025 6:00 AM CDT 03/21/2025 11:10 AM CDT Narrative [facility] - 03/21/2025 4:24 PM CDT If Albumin to Creatinine Ratio is elevated, consider the following: Elevations seen with incipient nephropathy associated with diabetes mellitus or hypertension. Stress, exercise,hematuria, and urinary tract infection may also produce elevated results. If clinically indicated, confirm with 24 Hour Albumin to Creatinine Ratio. [facility] Haydee Noriega URINE Final Resu lt [facility] [address] [place] [address], [place] * TSH WITH REFLEX (03/17/2025 10:38 AM CDT) TSH W/REFLEX TO FT4 2.27 mIU/L [facility] Comment: Reference Range > or = 20 Years 0.40-4.50 Ranges First trimester 0.26-2.66 Second trimester 0.55-2.73 Third trimester 0.43-2.91 Blood BLOOD SPECIMEN / Unknown 03/17/2025 10:38 AM CDT 03/17/2025 10:39 AM CDT Milagro Noriega CHEMISTRY Final Resu lt Performing Organization Address City/[facility]/ZIP Co de Phone Number [employer] [facility] [address] [place] [address], [facility] [address] [place] [address] * (ABNORMAL) VITAMIN D 25 (DEFICIENCY) (03/17/2025 10:38 AM CDT) VITAMIN D,25-OH,TOTAL,IA 29(L) 30 - 100 ng/mL [facility] Comment: Vitamin D Status 25-OH Vitamin D: Deficiency: <20 ng/mL Insufficiency: 20 - 29 ng/mL Optimal: > or = 30 ng/mL For 25-OH Vitamin D testing on patients on D2-supplementation and patients for whom quantitation of D2 and D3 fractions is required, the QuestAssureD(TM) 25-OH VIT D, (D2,D3), LC/MS/MS is recommended: order code 02002 (patients >2yrs). See Note 1 Note 1 For additional information, please refer to http://education.[employer]/faq/BMB777 (This link is being provided for informational/ educational purposes only.) Blood BLOOD SPECIMEN / Unknown 03/17/2025 10:38 AM CDT 03/17/2025 10:39 AM CDT Milagro Noriega DO SEND OUTS Final Resu lt [facility] [address] [place] [address], [facility] [address] [place] [address] * HEMOGLOBIN (03/17/2025 10:38 AM CDT) HEMOGLOBIN 14.0 11.7 - 15.5 g/dL [facility] Blood BLOOD SPECIMEN / Unknown 03/17/2025 10:38 AM CDT 03/17/2025 10:39 AM CDT Milagro Noriega DO HEMATOLOGY Final Resu lt [facility] [address] [place] [address], [facility] [address] [place] [address] * FSH (03/17/2025 10:38 AM CDT) FSH 31.1 mIU/mL [facility] Comment: Reference Range Follicular Phase 2.5-10.2 Mid-cycle Peak 3.1-17.7 Luteal Phase 1.5- 9.1 Postmenopausal 23.0-116.3 Blood BLOOD SPECIMEN / Unknown 03/17/2025 10:38 AM CDT 03/17/2025 10:[address] [facility] Haydee Noriega CHEMISTRY Final Resu lt Performing Organization Address City/[facility]/ZIP Co de Phone Number [employer] [facility] [address] [place] [address], [facility] [address] [place] [address] * HEMOGLOBIN A1C MONITORING (POCT) (03/17/2025 10:37 AM CDT) Only the most recent of2 resultswithin the time period is included. Pathologist [facility] POC HEMOGLOBIN A1C 5.8 <6.0 % OF TOTAL HGB [facility] Comment: Any point of care results exhibiting inconsistency with the patient's clinical status should be repeated using a different testing method. Blood BLOOD SPECIMEN / Unknown 03/17/2025 10:37 AM CDT 03/17/2025 10:[address] [facility] Haydee Noriega CHEMISTRY Final Resu Performing Organization Address [facility] Co de Phone Number [facility] [address] [place] [address], [facility] [address] [place] [address] * LDL CHOLESTEROL,DIRECT (01/11/2025 9:04 AM CDT) DIRECT LDL 52 <100 mg/dL [facility] Comment: Desirable range <100 mg/dL for primary prevention; <70 mg/dL for patients with CHD or diabetic patients with > or = 2 CHD risk factors. Blood BLOOD SPECIMEN / Unknown 01/11/2025 9:04 AM CDT 01/11/2025 9:[address] [facility] Haydee Noriega DO CHEMISTRY Final Resu lt Performing Organization Address City/[facility]/ZIP Co de Phone Number [employer] [facility] [address] [facility] [place] [address], [facility] [address] [address] [address] * (ABNORMAL) BASIC METABOLIC PANEL (01/11/2025 9:04 AM CDT) GLUCOSE 103(H) 65 - 99 mg/dL [facility] Comment: Fasting reference interval For someone without known diabetes, a glucose value between 100 and 125 mg/dL is consistent with prediabetes and should be confirmed with a follow-up test. UREA NITROGEN (BUN) 14 7 - 25 mg/dL [facility] CREATININE 0.78 0.50 - 1.03 mg/dL [facility] EGFR 91 > OR = 60 mL/min/1. 73m2 [facility] BUN/CREATININE RATIO SEE NOTE: 6 - 22 (calc) [facility] Comment: Not Reported: BUN and Creatinine are within reference range. SODIUM 142 135 - 146 mmol/L [facility] POTASSIUM 4.2 3.5 - 5.3 mmol/L [facility] CHLORIDE 105 98 - 110 mmol/L [facility] CARBON DIOXIDE 29 20 - 32 mmol/L [facility] ELECTROLYTE BALANCE 8 7 - 17 mmol/L (calc) [facility] CALCIUM 8.8 8.6 - 10.4 mg/dL [facility] Blood BLOOD SPECIMEN / Unknown 01/11/2025 9:04 AM CDT 01/11/2025 9:05 AM CDT us Milagro Noriega DO CHEMISTRY Final Resu lt [employer] [facility] [address] [place] [address], [facility] [address] [place] [address] * XR MAMMO BILAT SCREENING (06/07/2024 9:21 [...] health care provider. XR MAMMO BILAT SCREENING [[id number]] CLINICAL HISTORY: This is an asymptomatic 54 y.o. patient. INDICATION FOR EXAM: Mammogram Screening. TECHNIQUE: CC & MLO views were obtained. This study was evaluated with the assistance of Computer-Aided Detection. COMPARISON FILM: Yes 10/28/22 [facility] 04/03/21 [facility] FINDINGS: There are scattered areas of fibroglandular density. There are no dominant masses, suspicious micro calcifications or areas of architectural distortion. Milagro Noriega DO MAMMO Final Resu lt * COLONOSCOPY (12/25/2021 8:43 AM CDT) 12/25/2021 [...] 8:43 AM Procedure Code(s): --- Professional --- 94660, Colonoscopy, flexible; diagnostic, including collection of specimen(s) bybrushing or washing, when performed (separateprocedure) Diagnosis Code(s): --- Professional --- Z12.11, Encounter for screening formalignant neoplasm of colon CPT copyright 2020 [employer]. All rights reserved. The codes documented in this report are preliminary and upon physician internist reviewmay be revised to meet current compliance requirements. Scope In: 9:01:49 AM Scope Withdrawal Time 0 hours 7 minutes 22 seconds Scope Out: 9:17:38 AM Hubert You MD PROCEDURE ORD Final Res ult * HPV HIGH RISK (10/21/2021 11:45 AM TUB MENDER) TYPE 16 Negative Negative 10/23/2021 12:15 PM TUB MENDER [facility] TYPE 18 Negative Negative 10/23/2021 12:15 PM TUB MENDER [facility] OTHER HIGH RISK TYPES Negative Negative 10/23/2021 12:15 PM TUB MENDER [facility] Other (Cervical) Non-Blood / Unknown 10/21/2021 11:45 AM TUB MENDER 10/22/2021 9:38 AM TUB MENDER Narrative [facility] - 10/23/2021 12:15 PM TUB MENDER HPV types 16, 18, 31, 33, 35, 39, 45, 51, 52, 56, 58, 59, 66 and 68 DNA were undetectable or below the pre-set threshold. Methodology: Britt [place] 4800 HPV Test Milagro Noriega DO MICROBIOLOGY Final Resu lt [facility] [address] [place] [address], [place] * ANTI HIV 1/2 (03/23/2017 3:43 PM CDT) Pathologist [facility] HIV-1/HIV-2 ANTIBODY Non-Reacti ve Non-Reacti ve 03/25/2017 3:58 PM CDT [facility] Blood BLOOD SPECIMEN / Unknown Venipuncture / Unknown 03/23/2017 3:43 PM CDT 03/23/2017 3:43 PM CDT Narrative [facility] - 03/25/2017 3:58 PM CDT HIV-1 p24 and HIV-1/HIV-2 Ab not detected [facility] DO SEND OUTS Final Resu lt [facility] [address] [place] [address], * ACUTE HEPATITIS PANEL (03/23/2017 3:43 PM CDT) Pathologist [facility] HEPATITIS C ANTIBODY Non-Reactive Non-Reactive 03/25/2017 3:58 PM CDT [facility] IGM ANTI HAV Non-Reactive Non-Reactive 03/25/20 17 3:58 PM CDT [facility] HBSAG Nonreactive Nonreactive 03/25/2017 3:58 PM CDT [facility] IGM ANTI HBC Non-Reactive Non-Reactive 03/25/20 17 3:58 PM CDT [facility] Blood BLOOD SPECIMEN / Unknown Venipuncture / Unknown 03/23/2017 3:43 PM CDT 03/23/2017 3:43 PM CDT Narrative [facility] - 03/25/2017 3:58 PM CDT Anti-HBc IgM not detected. Does not exclude the possibility of exposure to or infection with HBV. Milagro Noriega DO SEND OUTS Final Resu lt [facility] [address] [place] [address], from Last 3 Months or Most Recently Relevant to Health Maintenance Insurance MEDICARE PART A HB ONLY [facility] * Guarantor: [facility] Account Type Relation to Patient Date of Phone Billing Address Contract 2004 [address] [place] [id number] Advance Directives * Full Code (Latest Code Status on File) Date Activated Date Inactivated Comments 03/20/2016 7:36 AM 03/20/2016 5:18 PM Question Answer Comments Code Status Discussion: Not Discussed Care Teams Dice Table Operator Relationship Specialty Start Date End Date Milagro Noriega DO [address] [place] [address] PCP - General Family Practice 01/21/16 Silvia Guadalupe MD [address] [place] [address] [address] Psychiatry Psychiatry 02/26/21 Ariadna Villa RN [address] [place] [address] Customer Care Specialist 02/07/25
[2025-03-25 16:10] VITALS: BP 129/70; PULSE 74; RESP 16; TEMP 36.7; O2SAT 97; BMI 45.2
--- NOTE | 2025-03-25 16:21 | CRLHL7_ITS ---
For Patients: As a result of the Century Cures Act, medical imaging exams and procedure reports are released immediately into your electronic medical record. You may view this report before your referring provider. If you have questions, please contact your health care provider. INDICATION: Ankle Pain. History of surgery, pain today, no recent trauma TECHNIQUE: Ankle radiograph 3 views right COMPARISON: 10/01/2024 FINDINGS: Bone: No acute fractures or aggressive bone lesions are identified. An intramedullary ryder with 2 interlocking screws are present in the distal fibula and lateral malleolus without interval change. A small calcaneal enthesophyte is present and similar to prior exam. Joint: The ankle mortise joint and the visualized hindfoot joints are unremarkable in appearance. No significant ankle effusion is seen. Soft tissue: Mild thickening of the Achilles tendon is present near the insertion without interval change. No radiopaque foreign bodies are seen. IMPRESSIONS: 1. No acute osseous injuries or abnormalities are noted. 2. Mild thickening of the Achilles tendon is present near the insertion without interval change. Assessment with MRI may be helpful to exclude tendinopathy or partial tendon tear. Dictated by Alphonse Paris MD @ 03/25/2025 4:40:02 PM Dictated by: Alphonse Paris MD @ 03/25/2025 16:40:09 (Electronically Signed)
--- NOTE | 2025-03-25 16:24 | ED.GENADULT ---
HPI - General Adult General Date Seen: 03/25/25 Chief complaint: Extremity Pain/Injury, Lower Stated complaint: Right ankle pain Time Seen by Provider: 03/25/25 16:17 History of Present Illness HPI narrative: Patient is a 54-year-old woman who presents for evaluation of pain in her right ankle. She says this started earlier today. She does have a history of ORIF remotely of that ankle and is status post hardware removal. She was seen here once previously in September of this year for pain in that ankle, had x-rays which were negative. It does not look like she had any kind of follow-up after that visit. She has not noted any redness or warmth, no fevers. She says she has pain that radiates all the way up to her hip but does note that she has bursitis in that hip as well. At home she tried ice. She had Toradol here last time which she found helpful. Related Data Home Medications ?Medication ?Instructions ?Recorded ?Confirmed betamethasone dipropionate 0.05 % 1 topical BID PRN 06/06/22 03/28/24 lotion buspirone 15 mg tablet 15 mg PO BID 06/06/22 03/25/25 esomeprazole magnesium 20 mg 40 mg PO DAILY 06/06/22 03/25/25 capsule,delayed release famotidine 20 mg tablet (Pepcid) 20 mg PO BID 06/06/22 03/25/25 ketoconazole 1 % shampoo 1 topical 06/06/22 03/28/24 lorazepam 0.5 mg tablet 0.5 mg PO BID PRN 06/06/22 03/25/25 melatonin 5 mg capsule 5 mg PO DAILY PRN 06/06/22 03/25/25 propranolol 120 mg capsule,24 120 mg PO QDAY 10/24/22 03/25/25 hr,extended release insulin glargine 100 unit/mL (3 16 unit subcut QPM 01/02/23 03/25/25 mL) subcutaneous pen (Lantus Solostar U-100 Insulin) albuterol sulfate 90 mcg/actuation 1 - 2 puff inhalation Q4H PRN 10/28/23 03/25/25 aerosol inhaler wheezing buspirone 30 mg tablet 30 mg PO DAILY 10/28/23 03/25/25 cetirizine 10 mg tablet 10 mg DAILY 10/28/23 03/28/24 clobetasol 0.05 % shampoo topical 10/28/23 03/28/24 fluticasone propionate 50 2 spray intranasal DAILY 10/28/23 03/25/25 mcg/actuation nasal spray,suspension (24 Hour Allergy Relief) rosuvastatin 20 mg tablet 20 mg PO QPM 02/01/24 03/25/25 valsartan 40 mg tablet 20 mg PO 02/01/24 03/28/24 modafinil 200 mg tablet 200 mg PO DAILY 03/28/24 03/25/25 escitalopram oxalate 10 mg tablet 10 mg PO DAILY 03/25/25 03/25/25 escitalopram oxalate 20 mg tablet 20 mg PO DAILY 03/25/25 03/25/25 escitalopram oxalate 5 mg tablet 5 mg PO DAILY 03/25/25 03/25/25 Previous Rx's ?Medication ?Instructions ?Recorded clobetasol 0.05 % topical ointment 1 applic topical QHS #15 grams 08/12/22 ketorolac 10 mg tablet 10 mg PO Q8H PRN pain #15 tabs 03/25/25 Allergies Allergy/AdvReac Type Severity Reaction Status Date / Time lisinopril Allergy Swelling Verified 03/25/25 16:06 of Lip/Tongue/Throat metformin AdvReac Diarrhea Verified 03/25/25 16:06 Review of Systems Status of ROS: Reports: 6 or more systems reviewed and unremarkable except as noted in History and below [facility] Medical History Hypersomnia ?G47.10 - Hypersomnia, unspecified (ICD-10) Unspecified hearing loss ?H91.90 - Unspecified hearing loss, unspecified ear (ICD-10) BMI 40.0-44.9, adult ?Z68.41 - Body mass index [BMI] 40.0-44.9, adult (ICD-10) Normal colonoscopy Stress incontinence ?N39.3 - Stress incontinence (female) (male) (ICD-10) 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) GERD (gastroesophageal reflux disease) ?K21.9 - Gastro-esophageal reflux disease without esophagitis (ICD-10) High blood cholesterol ?E78.00 - Pure hypercholesterolemia, unspecified (ICD-10) Type 2 diabetes mellitus ?E11.9 - Type 2 diabetes mellitus without complications (ICD-10) OCD (obsessive compulsive disorder) ?F42.9 - Obsessive-compulsive disorder, unspecified (ICD-10) Recurrent depression ?F33.9 - Major depressive disorder, recurrent, unspecified (ICD-10) Hypertension ?I10 - Essential (primary) hypertension (ICD-10) Generalized anxiety disorder ?F41.1 - Generalized anxiety disorder (ICD-10) Obstructive sleep apnea ?G47.33 - Obstructive sleep apnea (adult) (pediatric) (ICD-10) Vitamin D deficiency ?E55.9 - Vitamin D deficiency, unspecified (ICD-10) Hypothyroidism ?E03.9 - Hypothyroidism, unspecified (ICD-10) Surgical History Status post hardware removal ?Z98.890 - Other specified postprocedural states (ICD-10) S/P ORIF (open reduction internal fixation) fracture (10/29/23) ?Z98.890 - Other specified postprocedural states (ICD-10) ?Z87.81 - Personal history of (healed) traumatic fracture (ICD-10) Hx laparoscopic cholecystectomy ?Z90.49 - Acquired absence of other specified parts of digestive tract (ICD-10) H/O lymph node excision ?Z98.890 - Other specified postprocedural states (ICD-10) H/O esophagogastroduodenoscopy ?Z98.890 - Other specified postprocedural states (ICD-10) History of delivery ?Z98.891 - History of uterine scar from previous surgery (ICD-10) Family History Other Anxiety disorder Coronary artery disease Stroke Social History Narrative: 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 She doesn't smoke, drink alcohol, [] Smoking Status: Never smoker Do you use any of these nicotine containing products: None Second hand tobacco smoke exposure: No How often do you have a drink containing alcohol: never How often do you have six or more drinks on one occasion: Never AUDIT-C Alcohol total score: 0 Non-prescribed substance use: denies use Caffeine: No Are you using contraception or practicing any form of control: Yes (IUD) service: No Exam Narrative: Exam Narrative: Vital signs reviewed In general, alert, nontoxic well-appearing woman. Extremities: Examination of the right lower extremity shows minimal swelling over the lateral malleolus, she has some mild tenderness in this area but there is no erythema or warmth. No deformity. Distal CMS is intact, dorsalis pedis pulses intact. The more proximal leg is normal without edema, tenderness, erythema or rash. In: Warm and dry, well perfused. Const: Vital Signs, click to edit/add: Vital Signs - 24 hr 03/25/25 16:10 Temperature 98.0 F Pulse Rate [Pulse Oximeter] 74 Respiratory Rate 16 Blood Pressure [Ri ght Upper Arm] 129/70 Pulse Oximetry 97 Oxygen Delivery Me thod Room Air Course Course ED Course: I have again ordered x-rays of the right ankle to evaluate for any damage to the remaining hardware. I do not see anything that suggests infection. Will give her shot of Toradol, if x-rays are negative would manage this with nonsteroidals, continued elevation and ice. Consider follow-up with orthopedics if she continues to have problems. X-rays by my review show intact hardware, no evidence of fracture or joint effusion. Review of radiology report is likewise negative for anything acute. They note some thickening of the Achilles tendon which is unchanged. As she does not have any pain or tenderness of the Achilles, I do not think this is directly related to her symptoms today. She continues to indicate the lateral malleolus as the source of her pain. We discussed that with history of ankle fracture and surgery, she probably will have days that she has more pain in the ankle. I prescribed some Toradol for her to use at home and we discussed that if she has days where the ankle is more sore she can certainly try using this as well as ice to help with symptoms. If she notes significant swelling, redness, fevers etcetera she should come back. Also discussed that if she is having more trouble with the ankle in general, she can make an appointment with the orthopedic clinic. She has a boot that was given to her last time she was here, she can use that over the next couple of days for comfort if she would like. Vital Signs Vital signs: Initial Vital Signs Temperature 98.0 F 03/25/25 16:10 Temperature Source Temporal Artery Scan 03/25/25 16:10 Pulse Rate 74 03/25/25 16:10 Respiratory Rate 16 03/25/25 16:10 Blood Pressure 129/70 03/25/25 16:10 Blood Pressure Mean 89 03/25/25 16:10 Pulse Oximetry 97 03/25/25 16:10 Oxygen Delivery Method Room Air 03/25/25 16:10 Vital Signs Temperature 98.0 F 03/25/25 16:10 Pulse Rate 74 03/25/25 16:10 Respiratory Rate 16 03/25/25 16:10 Blood Pressure 129/70 03/25/25 16:10 Pulse Oximetry 97 03/25/25 16:10 Oxygen Delivery Method Room Air 03/25/25 16:10 Temperature 98.0 F 03/25/25 16:10 Pulse Rate 74 03/25/25 16:10 Respiratory Rate 16 03/25/25 16:10 Blood Pressure 129/70 03/25/25 16:10 Pulse Oximetry 97 03/25/25 16:10 Oxygen Delivery Method Room Air 03/25/25 16:10 Medications Administered Medications: Discontinued Medications Generic Name Dose Route Start Last Admin Trade Name Freq PRN Reason Stop Dose Admin Ketorolac Tromethamine 30 mg 03/25/25 16:19 03/25/25 16:34 Ketorolac 30 Mg/Ml Inj IM 03/25/25 16:20 30 mg ONCE ONE Administration Discharge Plan Discharge Clinical Impression: Ankle pain, right Patient Disposition: Home, Self-Care Condition: Stable Instructions: Arthralgia (ED) Additional Instructions: As discussed, continue to use ice and elevate as able. If you would like, you can use the boot that you were given last time for a day or 2 to help rest your ankle joint. Your x-rays today do not show any acute problems such as broken hardware or broken bones. I have prescribed some Toradol for you to use over the next couple of days. If you continue to have problems, you can make an appointment to see the orthopedic doctors. The phone number is [phone]. If your ankle is getting significantly worse, you notice a lot of redness, warmth, or you have fevers, you should come back to the ER. Prescriptions: New ketorolac 10 mg tablet 10 mg PO Q8H PRN (Reason: pain) Qty: 15 0RF Rx Instructions: maximum total duration of 5 days from all oral, intranasal, or parenteral formulations No Action melatonin 5 mg capsule 5 mg PO DAILY PRN esomeprazole magnesium 20 mg capsule,delayed release(DR/EC) 40 mg PO DAILY ketoconazole 1 % shampoo 1 topical lorazepam 0.5 mg tablet 0.5 mg PO BID PRN buspirone 15 mg tablet 15 mg PO BID betamethasone dipropionate 0.05 % lotion 1 topical BID PRN famotidine [Pepcid] 20 mg tablet 20 mg PO BID clobetasol 0.05 % ointment 1 applic topical QHS Qty: 15 3RF Rx Instructions: Use nightly as needed for 4 weeks, then twice weekly. propranolol 120 mg capsule,extended release 24 hr 120 mg PO QDAY rosuvastatin 20 mg tablet 20 mg PO QPM valsartan 40 mg tablet 20 mg PO modafinil 200 mg tablet 200 mg PO DAILY insulin glargine [Lantus Solostar U-100 Insulin] 100 unit/mL (3 mL) insulin pen 16 unit subcut QPM albuterol sulfate 90 mcg/actuation HFA aerosol inhaler 1 - 2 puff INHALATION Q4H PRN (Reason: wheezing) buspirone 30 mg tablet 30 mg PO DAILY cetirizine 10 mg tablet 10 mg DAILY clobetasol 0.05 % shampoo topical fluticasone propionate [24 Hour Allergy Relief] 50 mcg/actuation spray,suspension 2 spray intranasal DAILY Rx Instructions: administer into each nostril escitalopram oxalate 10 mg tablet 10 mg PO DAILY escitalopram oxalate 20 mg tablet 20 mg PO DAILY escitalopram oxalate 5 mg tablet 5 mg PO DAILY Follow Up/Referrals: Milagro Noriega DO [Primary Care Provider, Family Practice] Stand Alone Forms: [facility] Info Instructions
--- OUTSIDE RECORDS SUMMARY | 2025-03-25 16:30 | XMS_ITS ---
Author Organization Unknown Medications Medication Instructions Effective Dates (start - stop) Status triamcinolone acetonide 0.00 1 MG/MG Topical Ointment - Completed 3 ML insulin glargine 100 UN T/ML Pen Injector [Lantus] - Completed - - Compl eted 24 HR desvenlafaxine succina te 25 MG Extended Release Oral Tablet - Compl eted lorazepam 0.5 MG Oral Tablet [id number] 0:00:00Z - Completed modafinil 200 MG Oral Tablet [id number] 0:00:00Z - Completed - - Compl eted 24 HR propranolol hydrochlor brenda 120 MG Extended Release Oral Capsule - Completed lorazepam 0.5 MG Oral Tablet [id number] 0:00:00Z - Completed 3 ML insulin glargine 100 UN T/ML Pen Injector [Lantus] - Completed 24 HR propranolol hydrochlor brenda 120 MG Extended Release Oral Capsule - Completed cetirizine hydrochloride 10 MG Oral Tablet - Completed cetirizine hydrochloride 10 MG Oral Tablet - Completed modafinil 200 MG Oral Tablet [id number] 0:00:00Z - Completed lorazepam 0.5 MG Oral Tablet [id number] 0:00:00Z - Completed rosuvastatin calcium 20 MG O ral Tablet - Completed - - Compl eted - - Compl eted - - Compl eted buspirone hydrochloride 15 M G Oral Tablet - Completed esomeprazole 40 MG Delayed R elease Oral Capsule - Completed modafinil 200 MG Oral Tablet [id number] 0:00:00Z - Completed 24 HR propranolol hydrochlor brenda 120 MG Extended Release Oral Capsule - Completed cetirizine hydrochloride 10 MG Oral Tablet - Completed 3 ML insulin glargine 100 UN T/ML Pen Injector [Lantus] - Completed - - Compl eted lorazepam 0.5 MG Oral Tablet [id number] 0:00:00Z - Completed 3 ML liraglutide 6 MG/ML Pen Injector [Victoza] - Completed lorazepam 0.5 MG Oral Tablet [id number] 0:00:00Z - Completed cetirizine hydrochloride 10 MG Oral Tablet - Completed - - Compl eted - - Compl eted 24 HR desvenlafaxine succina te 25 MG Extended Release Oral Tablet - Compl eted 24 HR propranolol hydrochlor brenda 120 MG Extended Release Oral Capsule - Completed famotidine 20 MG Oral Tablet [id number] 0:00:00Z - Completed cetirizine hydrochloride 10 MG Oral Tablet - Completed - - Compl eted esomeprazole 40 MG Delayed R elease Oral Capsule - Completed sertraline 100 MG Oral Tablet 2024-02-06 00:00:00Z - Completed famotidine 20 MG Oral Tablet [id number] 0:00:00Z - Completed 24 HR desvenlafaxine succina te 50 MG Extended Release Oral Tablet - Compl eted buspirone hydrochloride 30 M G Oral Tablet - Completed - - Compl eted buspirone hydrochloride 30 M G Oral Tablet - Completed buspirone hydrochloride 15 M G Oral Tablet - Completed buspirone hydrochloride 30 M G Oral Tablet - Completed famotidine 20 MG Oral Tablet [id number] 0:00:00Z - Completed famotidine 20 MG Oral Tablet [id number] 0:00:00Z - Completed - - Compl eted [...] - Completed lorazepam 0.5 MG Oral Tablet [id number] 0:00:00Z - Completed buspirone hydrochloride 30 M [...] - Completed famotidine 20 MG Oral Tablet [id number] 0:00:00Z - Completed 3 ML liraglutide 6 MG/ML Pen Injector [Victoza] - Completed valsartan 40 MG Oral Tablet [id number] :00:00Z - Completed famotidine 20 MG Oral Tablet [id number] 0:00:00Z - Completed 3 ML liraglutide 6 MG/ML Pen Injector [Victoza] - Completed famotidine 20 MG Oral Tablet [id number] 0:00:00Z - Completed clobetasol propionate 0.5 MG /ML Medicated Shampoo - Completed - - Compl eted - - Compl eted modafinil 200 MG Oral Tablet [id number] 0:00:00Z - Completed 24 HR propranolol hydrochlor brenda 120 MG Extended Release Oral Capsule - Completed - - Compl eted buspirone hydrochloride 15 M G Oral Tablet - Completed sertraline 100 MG Oral Tablet 2023-08-11 00:00:00Z - Completed - - Compl eted sertraline 100 MG Oral Tablet 2023-12-01 00:00:00Z - Completed sertraline 50 MG Oral Tablet [id number] 0:00:00Z - Completed cetirizine hydrochloride 10 MG Oral Tablet - Completed cetirizine hydrochloride 10 MG Oral Tablet - Completed famotidine 20 MG Oral Tablet [id number] 0:00:00Z - Completed - - Compl eted famotidine 20 MG Oral Tablet [id number] 0:00:00Z - Completed 3 ML liraglutide 6 MG/ML Pen Injector [Victoza] - Completed sertraline 25 MG Oral Tablet [id number] 0:00:00Z - Completed 24 HR desvenlafaxine succina te 50 MG Extended Release Oral Tablet - Compl eted - - Compl eted - - Compl eted famotidine 20 MG Oral Tablet [id number] 0:00:00Z - Completed clobetasol propionate 0.5 MG /ML Medicated Shampoo - Completed modafinil 200 MG Oral Tablet [id number] 0:00:00Z - Completed 3 ML insulin glargine 100 UN T/ML Pen Injector [Lantus] - Completed - - Compl eted - - Compl eted buspirone hydrochloride 15 M G Oral Tablet - Completed modafinil 200 MG Oral Tablet [id number] 0:00:00Z - Completed - - Compl eted modafinil 200 MG Oral Tablet [id number] 0:00:00Z - Completed diazepam 5 MG Oral Tablet [id number] 0:00Z - Completed famotidine 20 MG Oral Tablet [id number] 0:00:00Z - Completed cetirizine hydrochloride 10 MG Oral Tablet - Completed 3 ML insulin glargine 100 UN T/ML Pen Injector [Lantus] - Completed clobetasol propionate 0.5 MG /ML Medicated Shampoo - Completed - - Compl eted esomeprazole 40 MG Delayed R elease Oral Capsule - Completed valsartan 40 MG Oral Tablet [id number] :00:00Z - Completed cetirizine hydrochloride 10 MG Oral Tablet - Completed Patient Care team information Name Category Status Period Participants - - Proposed period not known -
[2025-03-25] MEDS: KETOROLAC 30 MG/ML inj IM (16:34)
--- OUTSIDE RECORDS SUMMARY | 2025-03-25 16:58 | XMS_ITS | CCD ---
Author Organization Unknown Care Team Providers Care Cbx Operator Name Role Phone [employer] [place], [place] Primary Care Provider Unava ilable Unavailable Chronic Care Management Unavaila ble Summary Purpose DataExchange Insurance Providers Payer name Policy type / Coverage type Covered republican ID Effective Begin Date Effective End Date [facility] Commercial Insurance [id number] 2021 Unkn own Family History Family History data not found Medication Administered No Medication Administered data Reason For Visit No Reason For Visit data
--- OUTSIDE RECORDS SUMMARY | 2025-03-25 16:58 | XMS_ITS | CCD ---
Author Organization Unknown Care Team Providers Care Advanced Quality Engineer Name Role Phone [employer] Business Representative, [place] Primary Care Provider Unava ilable Unavailable Chronic Care Management Unavaila ble Summary Purpose DataExchange Insurance Providers Payer name Policy type / Coverage type Covered alliance party ID Effective Begin Date Effective End Date [facility] Commercial Insurance [id number] 2021 Unkn own Family History Family History data not found Medication Administered No Medication Administered data Reason For Visit No Reason For Visit data
--- OUTSIDE RECORDS SUMMARY | 2025-03-25 17:29 | XMS_ITS | CCD ---
Author Organization Unknown Care Team Providers Care Manager Property Name Role Phone Regulatory Compliance Director, [place] Primary Care Provider Unava ilable Unavailable Chronic Care Management Unavaila ble Summary Purpose DataExchange Insurance Providers Payer name Policy type / Coverage type Covered constitution party ID Effective Begin Date Effective End Date [facility] Commercial Insurance [id number] 2021 Unkn own Family History Family History data not found Medication Administered No Medication Administered data Reason For Visit No Reason For Visit data
--- OUTSIDE RECORDS SUMMARY | 2025-03-25 17:29 | XMS_ITS | CCD ---
Author Organization Unknown Care Team Providers Care Diesel Inspector Name Role Phone Wholesale Buyer, [place] Primary Care Provider Unava ilable Unavailable Chronic Care Management Unavaila ble Summary Purpose DataExchange Insurance Providers Payer name Policy type / Coverage type Covered alliance party ID Effective Begin Date Effective End Date [facility] Commercial Insurance [id number] 2021 Unkn own Family History Family History data not found Medication Administered No Medication Administered data Reason For Visit No Reason For Visit data
== END 2025-03-25 17:04 | disposition home or self-care (01) ==
PROVIDERS: Emergency Provider Emergency Medicine; PCP Family Medicine
DX: M25.571 Pain in right ankle and joints of right foot (principal)
CPT/HCPCS: 73610; 96372; 99284; J1885